=== PATIENT | male | born 1940 | race Native Hawaiian/Other Pacific Islander ===

== ENCOUNTER 2017-05-01 16:24 | Inpatient (IN) | payer MEDICARE ==
[2017-05-01 20:30] VITALS: BMI 27.3
--- NOTE | 2017-05-01 22:29 | CP.PCM.HP ---
History of Present Illness - History of Present Illness History of Present Illness: Cardiothoracic Surgeon: Prince Gupta MD Data Specialist: Dr Rodrigues Chief complaint: Chest Pain s/p CABG The patient was seen and examined in the Acute Rehab Unit HPI: 76 years old male with Transferred from the [facility] here to the [facility] for acute rehab. He has hx of ESRD on HD MWF, DM , CAD s/p Stents; He was admitted to [facility] with Dx of NSTEMI on 04/20/17 and CABG on 04/25/17 at the [facility]. He refers being tired but No chest pains, SOB nor Palpitation. PMH: HTN; DM Insulin requiring: ESRD on HD MWF; CAD with Stent placed 04/07/16 ; A Fib/Flutter/ SSS; CHF; Pulmonary Hypertension PSH: CABG 04/25/17; DDD PPM [place] [id number] SH: No illegal drug use, No Alcohol use; No smoking of cigarettes FH: No family cardiac hx Allergies: ASA and Shell Fish causing rash Medication: Reviewed Present on Admission - Present on Admission Any Indicators Present on Admission: No History of DVT/PE: No History of Uncontrolled Diabetes: Yes Urinary Catheter: No Decubitus Ulcer Present: No Review of Systems - Constitutional Constitutional: absent: Anorexia, Chills, Fever, Headache, Lethargy - EENT Eyes: Requires Corrective Lenses. absent: Diplopia, Floaters, Photophobia Ears: absent: Decreased Hearing, Ear Discharge, Ear Pain, Tinnitus Nose/Mouth/Throat: absent: Epistaxis, Nasal Congestion, Sinus Pain, Sinus Pressure - Cardiovascular Cardiovascular: Chest Pain. absent: Dyspnea, Edema - Respiratory Respiratory: absent: Cough, Dyspnea, Wheezing - Gastrointestinal Gastrointestinal: absent: Abdominal Pain, Constipation, Diarrhea, Nausea, Vomiting - Genitourinary Genitourinary: absent: Dysuria, Flank Pain, Hematuria, Urinary Frequency - Musculoskeletal Musculoskeletal: absent: Arthralgias, Back Pain, Muscle Weakness - Integumentary Integumentary: absent: Pruritus, Rash, Skin Ulcer, Sores, Striae, Swelling - Neurological Neurological: absent: Confusion, Focal Weakness, Loss of Vision, Weakness - Psychiatric Psychiatric: absent: Anxiety, Depression, Panic Attacks - Endocrine Endocrine: absent: Palpitations, Polydipsia, Polyphagia, Polyuria - Hematologic/Lymphatic Hematologic: absent: Easy Bleeding, Easy Bruising Past Patient History - Past Medical History & Family History Past Medical History?: Yes - Past Social History Smoking Status: Never Smoked Chewing Tobacco Use: No Cigar Use: No Alcohol: None Drugs: Denies Home Situation {Lives}: With Family - CARDIAC Hx Cardiac Disorders: Yes Hx Atrial Fibrillation: Yes Hx Hypertension: Yes Hx Pacemaker: Yes - PULMONARY Hx Respiratory Disorders: No - NEUROLOGICAL Hx Neurological Disorder: No - HEENT Hx HEENT Problems: No - RENAL Hx Chronic Kidney Disease: Yes Hx Dialysis: Yes Date of Last Dialysis Treatment: 04/30/17 (MWF) - ENDOCRINE/METABOLIC Hx Diabetes Mellitus Type 1: Yes (??) - HEMATOLOGICAL/ONCOLOGICAL Hx Anemia: Yes - INTEGUMENTARY Hx Dermatological Problems: No - MUSCULOSKELETAL/RHEUMATOLOGICAL Hx Musculoskeletal Disorders: No - SURGICAL HISTORY Hx Surgeries: Yes Hx Cardiac Catheterization: Yes Hx Coronary Artery Bypass Graft: Yes Other/Comment: CABG/PPM - ANESTHESIA Hx Anesthesia: Yes Hx Anesthesia Reactions: No Meds Allergies/Adverse Reactions: Allergies Allergy/AdvReac Type Severity Reaction Status Date / Time aspirin Allergy Intermediate .HIVES Verified 05/01/17 20:29 shellfish derived Allergy Intermediate .HIVES Verified 05/01/17 20:29 Physical Exam - Constitutional Appears: No Acute Distress - Head Exam Head Exam: ATRAUMATIC, NORMAL INSPECTION, NORMOCEPHALIC - Eye Exam Eye Exam: EOMI, Normal appearance Pupil Exam: NORMAL ACCOMODATION, PERRL - ENT Exam ENT Exam: Mucous Membranes Moist, Normal Exam, Normal External Ear Exam - Neck Exam Neck exam: Positive for: Full Rom, Normal Inspection. Negative for: Lymphadenopathy, Tenderness - Respiratory Exam Additional comments: Mild rales at both bases; no wheezes nor rhonchi Chest wall with post surgical fran with the wound clean and dry with no sign of inflammation. - Cardiovascular Exam Additional comments: S1 S2 regular with intermittent irregularity; No S3 S4 - GI/Abdominal Exam GI & Abdominal Exam: Mass, Normal Bowel Sounds, Soft. absent: Organomegaly - Rectal Exam Rectal Exam: Deferred - Extremities Exam Extremities exam: Positive for: full ROM, normal inspection. Negative for: calf tenderness - Back Exam Back exam: NORMAL INSPECTION. absent: CVA tenderness (L), CVA tenderness (R) - Neurological Exam Neurological exam: Alert, CN II-XII Intact, Oriented x3, Reflexes Normal - Psychiatric Exam Psychiatric exam: Normal Affect, Normal Mood - Skin Skin Exam: Dry, Intact, Warm Additional comments: Hyperpigmentation at anterior region of both legs distal 1/3, non tender Results - Labs Labs: Hb 10.9 Ht 33.7 BUN 50 Creatinine 77 Assessment & Plan - Assessment and Plan (Free Text) Assessment: #.NSTEMI s/p CABG #. ESRD s/p HD MWF #. Anemia of chronic Kidney disease #. DM insulin requiring #. A Fib/ A flutter/ SSS Plan: 76 years old male with Transferred from the [facility] here to the [facility] for acute rehab. He has hx of ESRD on HD MWF, DM, CAD s/ p Stents; He was admitted to [facility] with Dx of NSTEMI on 04/20/17 and CABG on 04/25 at the [facility]. He refers being tired but No chest pains, SOB nor Palpitation. #.NSTEMI s/p CABG - Consult Dr Lagos cardiothoracic Surgery - Cardiac Rehab - Consult Dr Claudio Phyiatrist - lipitor - Plavix - Metoprolol #. ESRD s/p HD MWF - Consult Dr Rodrigues nephrology #. Anemia of chronic Kidney disease - Epogen at dialysis - Follow Hb #. DM insulin requiring - Consult Dr Deluca endocrinology - Levemir - Aspart sliding scale - HbA1c #. A Fib/ A flutter/ SSS rate controlled - Not to restart Therapeytic Anticoagulant as yet as per Cardio thoracic Surgery - Follow Vital signs #. Stress Ulcer prophylaxis with Pantoprazole #. DVT prophylaxis with Heparin SQ #. Code Status Full - Date & Time Date: 05/01/17 Time: 22:29
[2017-05-01] MEDS: Insulin Detemir 100 Units/ml Inj SC SCH (23:09)
[2017-05-02 06:08] LABS: BASO % 0.5 % (0.0-2.0); EOS # 0.2 K/uL (0.0-0.7); EOS % 2.7 % (0.0-4.0); HEMOGLOBIN 10.9 g/dL (12.0-18.0); LYMPH # 1.1 K/uL (1.0-4.3); LYMPH % 13.4 % (20.0-40.0); MEAN CELL VOLUME 94.9 fl (80.0-94.0); MEAN CORPUSCULAR HEMOGLOBIN 31.1 pg (27.0-31.0); MEAN CORPUSCULAR HGB CONC 32.8 g/dL (33.0-37.0); MEAN PLATELET VOLUME 8.6 fl (7.2-11.7); MONO % 12.4 % (0.0-10.0); NEUT # 5.8 K/uL (1.8-7.0); NRBC % 0.7 % (0.0-0.0); RBC 3.52 Mil/uL (4.40-5.90); RED CELL DISTRIBUTION WIDTH 17.6 % (11.5-14.5); WHITE BLOOD COUNT 8.1 K/uL (4.8-10.8)
--- NOTE | 2017-05-02 06:42 | CP.PCM.CON ---
History of Present Illness - History of Present Illness History of Present Illness: CT surgery consult note for Dr. Peter Bush, PGY-1 76M w/PMH sig for CABG on 04/25/17 consulted for follow up s/p CABG. Pt reports no problems, denies chest pain, SOB, dizziness, N & V, F & C. Currently in hospital for rehab post op. Pt without any other complaints at this time. PMH: ESRD on HD (MWF), CAD s/p stents, DM, NSTEMI, afib, aflutter, CHF, pulmonary HTN PSH: CABG 04/25/17, Pacemaker (04/07/16) All: ASA, Shellfish (rash) SH: Denies ETOH, tobacco, or illicit drug use Review of Systems - Review of Systems All systems: reviewed and no additional remarkable complaints except - Constitutional Constitutional: absent: Chills, Fever - EENT Eyes: absent: Change in Vision Ears: absent: Dizziness - Cardiovascular Cardiovascular: absent: Chest Pain, Leg Edema, Lightheadedness, Palpitations - Respiratory Respiratory: absent: Pain with Coughing - Gastrointestinal Gastrointestinal: absent: Abdominal Pain, Nausea, Vomiting - Musculoskeletal Musculoskeletal: absent: Muscle Weakness - Neurological Neurological: absent: Dizziness Past Patient History - Past Medical History & Family History Past Medical History?: Yes - Past Social History Smoking Status: Never Smoked Chewing Tobacco Use: No Cigar Use: No Alcohol: None Drugs: Denies Home Situation {Lives}: With Family - CARDIAC Hx Cardiac Disorders: Yes Hx Atrial Fibrillation: Yes Hx Hypertension: Yes Hx Pacemaker: Yes - PULMONARY Hx Respiratory Disorders: No - NEUROLOGICAL Hx Neurological Disorder: No - HEENT Hx HEENT Problems: No - RENAL Hx Chronic Kidney Disease: Yes Hx Dialysis: Yes Date of Last Dialysis Treatment: 04/30/17 (MWF) - ENDOCRINE/METABOLIC Hx Diabetes Mellitus Type 1: Yes (??) - HEMATOLOGICAL/ONCOLOGICAL Hx Anemia: Yes - INTEGUMENTARY Hx Dermatological Problems: No - MUSCULOSKELETAL/RHEUMATOLOGICAL Hx Musculoskeletal Disorders: No - PSYCHIATRIC Hx Substance Use: No - SURGICAL HISTORY Hx Surgeries: Yes Hx Cardiac Catheterization: Yes Hx Coronary Artery Bypass Graft: Yes Other/Comment: CABG/PPM - ANESTHESIA Hx Anesthesia: Yes Hx Anesthesia Reactions: No Meds Allergies/Adverse Reactions: Allergies Allergy/AdvReac Type Severity Reaction Status Date / Time aspirin Allergy Intermediate .HIVES Verified 12/14/17 20:29 shellfish derived Allergy Intermediate .HIVES Verified 05/01/17 20:29 - Medications Medications: Current Medications Amlodipine Besylate (Norvasc) 10 mg PO DAILY [facility] Atorvastatin Calcium (Lipitor) 40 mg PO DAILY [facility] Calcium Acetate (Phoslo) 667 mg PO BID [facility] Clopidogrel Bisulfate (Plavix) 75 mg PO DAILY [facility] Docusate Sodium (Colace Liquid) 100 mg PO BID [facility] Epoetin Prasanth (Procrit) 10,000 unit IV MWF [facility] Heparin Sodium (Porcine) (Heparin) 5,000 units SC Q8H [facility] PRN Reason: Protocol Last Admin: 05/02/17 06:25 Dose: 5,000 units Insulin Detemir (Levemir) 20 units SC Q12 [facility] Last Admin: 05/01/17 23:09 Dose: 20 units Insulin Human Lispro (Humalog) 0 units SC ACHS [facility] PRN Reason: Protocol Metoprolol Tartrate (Lopressor) 25 mg PO Q12H [facility] Last Admin: 05/01/17 22:45 Dose: Not Given Multivitamins/Minerals (Therapeutic-M Tab) 1 tab PO DAILY [facility] Pantoprazole Sodium (Protonix Ec Tab) 40 mg PO DAILY [facility] Physical Exam - Constitutional Appears: Non-toxic, No Acute Distress - Head Exam Head Exam: ATRAUMATIC, NORMAL INSPECTION, NORMOCEPHALIC - Eye Exam Eye Exam: EOMI, Normal appearance - ENT Exam ENT Exam: Mucous Membranes Moist, Normal Exam - Neck Exam Neck exam: Positive for: Full Rom - Respiratory Exam Respiratory Exam: Clear to Auscultation Bilateral, NORMAL BREATHING PATTERN. absent: Accessory Muscle Use, Chest Wall Tenderness, Decreased Breath Sounds, Rales, Rhonchi, Wheezes, Respiratory Distress, Stridor - Cardiovascular Exam Cardiovascular Exam: REGULAR RHYTHM, +S1, +S2 Additional comments: Chest wall with midline incision with fran in place, 3 small incision sites in upper abdomen well healed - GI/Abdominal Exam GI & Abdominal Exam: Normal Bowel Sounds, Soft. absent: Diminished Bowel Sounds , Distended, Firm, Guarding, Rigid, Tenderness - Extremities Exam Extremities exam: Positive for: normal inspection. Negative for: pedal edema - Neurological Exam Neurological exam: Alert, CN II-XII Intact, Oriented x3 - Psychiatric Exam Psychiatric exam: Normal Affect, Normal Mood - Skin Skin Exam: Dry, Intact, Normal Color, Warm Results - Vital Signs Recent Vital Signs: Last Vital Signs Temp 97 F L 05/01/17 20:30 Pulse 75 05/01/17 22:45 Resp 20 05/01/17 22:30 BP 109/56 L 05/01/17 22:45 Pulse Ox 97 05/01/17 22:30 - Labs Result Diagrams: 05/02/17 05:29 05/02/17 05:29 Labs: Laboratory Results - last 24 hr 05/01/17 05/02/17 05/02/17 21:36 05:29 06:05 WBC 8.1 RBC 3.52 L Hgb 10.9 L Hct 33.4 L MCV 94.9 H MCH 31.1 H MCHC 32.8 L RDW 17.6 H Plt Count 176 MPV 8.6 Neut % (Auto) 71.0 Lymph % (Auto) 13.4 L Navarro % (Auto) 12.4 H Eos % (Auto) 2.7 Baso % (Auto) 0.5 Neut # 5.8 Lymph # 1.1 Navarro # 1.0 H Eos # 0.2 Baso # 0.0 POC Glucose (mg/dL) 283 H 192 H Assessment & Plan - Assessment and Plan (Free Text) Assessment: 76M w/PMH sig for CAD, NSTEMI s/p CABG (04/25/17) consulted for post op evaluation, stable in rehab unit Plan: Ambulate PT/OT If pt has cardiac symptoms, please return to [facility] Will sign off Please re-consult as needed KAREL attending Rachelle, PGY-1 - Date & Time Date: 05/02/17 Time: 08:36
[2017-05-02 06:45] LABS: ALB/GLOB RATIO 1.1 (1.0-2.1); ALBUMIN 3.9 g/dL (3.5-5.0); CALCIUM 9.4 mg/dL (8.4-10.2)
[2017-05-02] MEDS: Insulin Lispro (humaLOG) 100 Units/ml Inj SC SCH ×4 (06:59→22:03)
[2017-05-02] MEDS ORDERED: Calcium Acetate 667 MG Capsule PO SCH (09:00)
[2017-05-02] MEDS ORDERED: Pantoprazole 40 mg EC Tab PO SCH (09:00)
[2017-05-02] MEDS: Multivitamin With Minerals Tab PO SCH (09:19)
[2017-05-02] MEDS: Insulin Detemir 100 Units/ml Inj SC SCH ×2 (09:20→22:02)
--- NOTE | 2017-05-02 11:24 | CP.PCM.CON ---
History of Present Illness - History of Present Illness History of Present Illness: Pt is a 76 year old male admitted into the rehab unit following heart surgery at [facility]. Med history positive for DM, dialysis, HTN,, past pacemaker. See medical record for complete medical history and medications. Social History: pt lives with his of 50+ years, child and grandchild. He has three children all in [place]. Pt reported very positive family relationships. diagnosed with Dementia (info provided by daughter). Pt spoke of independence prior to admission though family reported homemakers in the home with family assistance. Psych history denied, pt denied a history of alc/sub abuse. 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 Pt spoke of current depression, refusing medication evaluation. Pt disc increased depression with his heart surgery and current status. MSE: Pt alert, oriented x3, relevant/coherent, no psychosis affect constricted, mood depressed, no si no hi ideation. Dx: Depression Adjustment dx with depression plan: continued supportive therapy Past Patient History - Past Medical History & Family History Past Medical History?: Yes - Past Social History Smoking Status: Never Smoked Chewing Tobacco Use: No Cigar Use: No Alcohol: None Drugs: Denies Home Situation {Lives}: With Family - CARDIAC Hx Cardiac Disorders: Yes Hx Atrial Fibrillation: Yes Hx Hypertension: Yes Hx Pacemaker: Yes - PULMONARY Hx Respiratory Disorders: No - NEUROLOGICAL Hx Neurological Disorder: No - HEENT Hx HEENT Problems: No - RENAL Hx Chronic Kidney Disease: Yes Hx Dialysis: Yes Date of Last Dialysis Treatment: 04/30/17 (MWF) - ENDOCRINE/METABOLIC Hx Diabetes Mellitus Type 1: Yes (??) - HEMATOLOGICAL/ONCOLOGICAL Hx Anemia: Yes - INTEGUMENTARY Hx Dermatological Problems: No - MUSCULOSKELETAL/RHEUMATOLOGICAL Hx Musculoskeletal Disorders: No - PSYCHIATRIC Hx Substance Use: No - SURGICAL HISTORY Hx Surgeries: Yes Hx Cardiac Catheterization: Yes Hx Coronary Artery Bypass Graft: Yes Other/Comment: CABG/PPM - ANESTHESIA Hx Anesthesia: Yes Hx Anesthesia Reactions: No Meds Allergies/Adverse Reactions: Allergies Allergy/AdvReac Type Severity Reaction Status Date / Time aspirin Allergy Intermediate .HIVES Verified 05/01/17 20:29 shellfish derived Allergy Intermediate .HIVES Verified 05/01/17 20:29 - Medications Medications: Current Medications Amlodipine Besylate (Norvasc) 10 mg PO DAILY [facility] Last Admin: 12/15/17 09:19 Dose: 10 mg Atorvastatin Calcium (Lipitor) 40 mg PO DAILY [facility] Last Admin: 05/02/17 09:20 Dose: 40 mg Calcium Acetate (Phoslo) 667 mg PO BID [facility] Last Admin: 05/02/17 09:25 Dose: 667 mg Clopidogrel Bisulfate (Plavix) 75 mg PO DAILY [facility] Last Admin: 05/02/17 09:19 Dose: 75 mg Docusate Sodium (Colace Liquid) 100 mg PO BID [facility] Last Admin: 05/02/17 09:21 Dose: 100 mg Epoetin Prasanth (Procrit) 10,000 unit IV MWF [facility] Heparin Sodium (Porcine) (Heparin) 5,000 units SC Q8H [facility] PRN Reason: Protocol Last Admin: 05/02/17 06:25 Dose: 5,000 units Insulin Detemir (Levemir) 20 units SC Q12 [facility] Last Admin: 05/02/17 09:20 Dose: 20 units Insulin Human Lispro (Humalog) 0 units SC ACHS [facility] PRN Reason: Protocol Last Admin: 05/02/17 06:59 Dose: 1 unit Metoprolol Tartrate (Lopressor) 25 mg PO Q12H [facility] Last Admin: 05/01/17 22:45 Dose: Not Given Multivitamins/Minerals (Therapeutic-M Tab) 1 tab PO DAILY [facility] Last Admin: 05/02/17 09:19 Dose: 1 tab Pantoprazole Sodium (Protonix Ec Tab) 40 mg PO DAILY [facility] Last Admin: 05/02/17 09:18 Dose: 40 mg Results - Vital Signs Recent Vital Signs: Last Vital Signs Temp 96.6 F L 05/02/17 08:20 Pulse 70 05/02/17 09:19 Resp 18 05/02/17 08:20 BP 139/58 L 05/02/17 09:19 Pulse Ox 97 05/02/17 08:20 - Labs Result Diagrams: 05/02/17 05:29 05/02/17 05:29 Labs: Laboratory Results - last 24 hr 05/01/17 05/02/17 05/02/17 21:36 05:29 05:29 WBC 8.1 RBC 3.52 L Hgb 10.9 L Hct 33.4 L MCV 94.9 H MCH 31.1 H MCHC 32.8 L RDW 17.6 H Plt Count 176 MPV 8.6 Neut % (Auto) 71.0 Lymph % (Auto) 13.4 L Scott % (Auto) 12.4 H Eos % (Auto) 2.7 Baso % (Auto) 0.5 Neut # 5.8 Lymph # 1.1 Scott # 1.0 H Eos # 0.2 Baso # 0.0 Sodium 139 Potassium 4.1 Chloride 91 L Carbon Dioxide 31 H Anion Gap 21 H BUN 70 H Creatinine 9.5 H* Est GFR ( Amer) 7 Est GFR (Non-Af Amer) 5 POC Glucose (mg/dL) 283 H Random Glucose 153 H Calcium 9.4 Total Bilirubin 0.8 AST 57 ALT 29 Alkaline Phosphatase 94 Total Protein 7.4 Albumin 3.9 Globulin 3.5 Albumin/Globulin Ratio 1.1 05/02/17 06:05 WBC RBC Hgb Hct MCV MCH MCHC RDW Plt Count MPV Neut % (Auto) Lymph % (Auto) Scott % (Auto) Eos % (Auto) Baso % (Auto) Neut # Lymph # Scott # Eos # Baso # Sodium Potassium Chloride Carbon Dioxide Anion Gap BUN Creatinine Est GFR ( Amer) Est GFR (Non-Af Amer) POC Glucose (mg/dL) 192 H Random Glucose Calcium Total Bilirubin AST ALT Alkaline Phosphatase Total Protein Albumin Globulin Albumin/Globulin Ratio
--- NOTE | 2017-05-02 13:14 | PCM.OPOC ---
Physiatry Overall Plan of Care - Overall Plan of Care Estimated Length of Stay in Weeks: 3 Rehab Impairment: Mobility, Gait, Cognition, Balance, Coordination Etiologic Diagnosis: Other - Anticipated Interventions Physical Therapy:: Yes Occupational Therapy:: Yes Recreational Therapy:: Yes - Therapy Goals Bed Mobility: Independent Ambulation: Independent Functional Positional Changes:: Independent - Functional Outcomes Functional Outcomes: fair cardiac precautuions - Discharge Plan Identification of Barriers to Discharge: Home Situation Discharge Destination: Home
--- NOTE | 2017-05-02 13:20 | CP.PCM.PN ---
Subjective - Date & Time of Evaluation Date of Evaluation: 05/02/17 Time of Evaluation: 12:00 - Subjective Subjective: Patient with no c/c today. States pain is well controlled. States he is doing PT as tolerated. Per nursing, noted to often be tired and less interested in PT. Objective - Vital Signs/Intake and Output Vital Signs (last 24 hours): Temp Pulse Resp BP Pulse Ox 96.6 F L 71 18 124/61 97 05/02/17 08:20 05/02/17 11:58 05/02/17 08:20 05/02/17 11:58 05/02/17 08:20 - Medications Medications: Current Medications Amlodipine Besylate (Norvasc) 10 mg PO DAILY [facility] Last Admin: 05/02/17 09:19 Dose: 10 mg Atorvastatin Calcium (Lipitor) 40 mg PO DAILY [facility] Last Admin: 05/02/17 09:20 Dose: 40 mg Calcium Acetate (Phoslo) 667 mg PO BID [facility] Last Admin: 05/02/17 09:25 Dose: 667 mg Clopidogrel Bisulfate (Plavix) 75 mg PO DAILY [facility] Last Admin: 05/02/17 09:19 Dose: 75 mg Docusate Sodium (Colace Liquid) 100 mg PO BID [facility] Last Admin: 05/02/17 09:21 Dose: 100 mg Epoetin Prasanth (Procrit) 10,000 unit IV F [facility] Heparin Sodium (Porcine) (Heparin) 5,000 units SC Q8H [facility] PRN Reason: Protocol Last Admin: 05/02/17 06:25 Dose: 5,000 units Insulin Detemir (Levemir) 20 units SC Q12 [facility] Last Admin: 05/02/17 09:20 Dose: 20 units Insulin Human Lispro (Humalog) 0 units SC ACHS [facility] PRN Reason: Protocol Last Admin: 05/02/17 11:59 Dose: 2 unit Metoprolol Tartrate (Lopressor) 25 mg PO Q12H [facility] Last Admin: 05/02/17 11:58 Dose: 25 mg Multivitamins/Minerals (Therapeutic-M Tab) 1 tab PO DAILY [facility] Last Admin: 05/02/17 09:19 Dose: 1 tab Pantoprazole Sodium (Protonix Ec Tab) 40 mg PO DAILY [facility] Last Admin: 05/02/17 09:18 Dose: 40 mg - Labs Labs: 05/02/17 05:29 05/02/17 05:29 - Constitutional Appears: No Acute Distress - Head Exam Head Exam: ATRAUMATIC, NORMOCEPHALIC - Eye Exam Eye Exam: EOMI, PERRL - ENT Exam ENT Exam: Mucous Membranes Moist - Neck Exam Neck Exam: Full ROM - Respiratory Exam Respiratory Exam: Clear to Ausculation Bilateral, NORMAL BREATHING PATTERN Additional comments: Chest incision c/d/i - Cardiovascular Exam Cardiovascular Exam: REGULAR RHYTHM, +S1, +S2 - GI/Abdominal Exam GI & Abdominal Exam: Soft, Normal Bowel Sounds - Extremities Exam Extremities Exam: Full ROM, Normal Inspection Additional comments: Leg incision for vein harvest C/D/I - Neurological Exam Neurological Exam: Awake, CN II-XII Intact, Oriented x3 - Psychiatric Exam Psychiatric exam: Normal Affect, Normal Mood - Skin Skin Exam: Dry, Warm Assessment and Plan (1) S/P CABG (coronary artery bypass graft) Assessment & Plan: A/P: This is a 76 years old male who is here after NSTEMI and CABG at [facility]. Transferred here for acute rehab. MHx is significant for ESRD on HD MWF, DM2, CAD s/p stents in the past. Patient is stable, without c/c today. 1) NSTEMI s/p CABG - Cardiac Rehab - Consult Dr Claudio Phyiatrist - Cont Lipitor - Cont Plavix - Cont Metoprolol - Notified that Dr. Peters, the surgeon, does not have privileges here in hospital; patient has an appointment on 05/[address] Peters in office, so will cancel consult 2) ESRD on HD MWF - Consult Dr Rodrigues nephrology 3) Anemia of chronic Kidney disease - Epogen at dialysis - Follow H/H on CBC, will order a repeat 4) DM insulin requiring - Dr Jacobs endocrinology on consult - Levemir - Aspart sliding scale 5) A Fib/ A flutter/ SSS rate controlled - Not to restart Therapeytic Anticoagulant as yet as per Cardio thoracic Surgery 6) GI PPx with Pantoprazole 7) DVT PPx with SQH 8) Code Status Full Status: Acute
--- NOTE | 2017-05-02 14:32 | CP.PCM.CON ---
History of Present Illness - History of Present Illness History of Present Illness: 76 y/o male with PMHx of HTN, DM Insulin requiring: ESRD on HD MWF; CAD with Stent placed 04/07/16; A Fib/Flutter/ SSS; CHF; Pulmonary Hypertension seen and evaluated at bedside for elongated nails. Patient appears to be resting and is not responding to questions asked properly. Patient denies of any other pedal complains at this time. PMHx: HTN, DM Insulin requiring: ESRD on HD MWF; CAD with Stent placed 04/07/16 ; A Fib/Flutter/ SSS; CHF; Pulmonary Hypertension PSHx: CABG 04/25/17; DDD PPM [place] [id number] Allergies: ASA and Shell Fish causing rash SHx: No illegal drug use, No Alcohol use; No smoking of cigarettes Review of Systems - Constitutional Constitutional: As Per HPI Past Patient History - Past Medical History & Family History Past Medical History?: Yes - Past Social History Smoking Status: Never Smoked Chewing Tobacco Use: No Cigar Use: No Alcohol: None Drugs: Denies Home Situation {Lives}: With Family - CARDIAC Hx Cardiac Disorders: Yes Hx Atrial Fibrillation: Yes Hx Hypertension: Yes Hx Pacemaker: Yes - PULMONARY Hx Respiratory Disorders: No - NEUROLOGICAL Hx Neurological Disorder: No - HEENT Hx HEENT Problems: No - RENAL Hx Chronic Kidney Disease: Yes Hx Dialysis: Yes Date of Last Dialysis Treatment: 04/30/17 ([facility]) - ENDOCRINE/METABOLIC Hx Diabetes Mellitus Type 1: Yes (??) - HEMATOLOGICAL/ONCOLOGICAL Hx Anemia: Yes - INTEGUMENTARY Hx Dermatological Problems: No - MUSCULOSKELETAL/RHEUMATOLOGICAL Hx Musculoskeletal Disorders: No - PSYCHIATRIC Hx Substance Use: No - SURGICAL HISTORY Hx Surgeries: Yes Hx Cardiac Catheterization: Yes Hx Coronary Artery Bypass Graft: Yes Other/Comment: CABG/PPM - ANESTHESIA Hx Anesthesia: Yes Hx Anesthesia Reactions: No Meds Allergies/Adverse Reactions: Allergies Allergy/AdvReac Type Severity Reaction Status Date / Time aspirin Allergy Intermediate .HIVES Verified 05/01/17 20:29 shellfish derived Allergy Intermediate .HIVES Verified 05/01/17 20:29 - Medications Medications: Current Medications Amlodipine Besylate (Norvasc) 10 mg PO DAILY [facility] Last Admin: 05/02/17 09:19 Dose: 10 mg Atorvastatin Calcium (Lipitor) 40 mg PO DAILY [facility] Last Admin: 05/02/17 09:20 Dose: 40 mg Calcium Acetate (Phoslo) 667 mg PO BID [facility] Last Admin: 05/02/17 09:25 Dose: 667 mg Clopidogrel Bisulfate (Plavix) 75 mg PO DAILY [facility] Last Admin: 05/02/17 09:19 Dose: 75 mg Docusate Sodium (Colace Liquid) 100 mg PO BID [facility] Last Admin: 05/02/17 09:21 Dose: 100 mg Epoetin Prasanth (Procrit) 10,000 unit IV F [facility] Heparin Sodium (Porcine) (Heparin) 5,000 units SC Q8H [facility] PRN Reason: Protocol Last Admin: 05/02/17 13:58 Dose: 5,000 units Insulin Detemir (Levemir) 20 units SC Q12 [facility] Last Admin: 05/02/17 09:20 Dose: 20 units Insulin Human Lispro (Humalog) 0 units SC ACHS [facility] PRN Reason: Protocol Last Admin: 05/02/17 11:59 Dose: 2 unit Metoprolol Tartrate (Lopressor) 25 mg PO Q12H [facility] Last Admin: 05/02/17 11:58 Dose: 25 mg Multivitamins/Minerals (Therapeutic-M Tab) 1 tab PO DAILY [facility] Last Admin: 05/02/17 09:19 Dose: 1 tab Pantoprazole Sodium (Protonix Susp) 40 mg PO DAILY [facility] Physical Exam - Constitutional Appears: Well, Non-toxic, No Acute Distress - Extremities Exam Extremities exam: Negative for: calf tenderness Additional comments: Bilateral LE exam: VASC: DP/PT pulses are palpable 2/4, Cap refill time: < 3 sec to all digits, Temp gradient: warm to cool from proximal to distal, no pitting or non-pitting edema noted DERM: nails are elongated, slightly dystrophic x 10, no open lesions, no interdigital maceration, no clinical suspicion of active infection NEURO: Protective sensation grossly intact ORTHO: mild pain on palpation of the hallucal nail on the left, normal ROM at the ankle joint during AROM and PROM, MMT: 5/5 in all 4 compartments - Neurological Exam Neurological exam: Alert, Oriented x3 - Psychiatric Exam Psychiatric exam: Normal Affect, Normal Mood Results - Vital Signs Recent Vital Signs: Last Vital Signs Temp 96.6 F L 05/02/17 08:20 Pulse 71 05/02/17 11:58 Resp 18 05/02/17 08:20 BP 124/61 05/02/17 11:58 Pulse Ox 97 05/02/17 08:20 - Labs Result Diagrams: 05/02/17 05:29 05/02/17 05:29 Labs: Laboratory Results - last 24 hr 05/01/17 05/02/17 05/02/17 21:36 05:29 05:29 WBC 8.1 RBC 3.52 L Hgb 10.9 L Hct 33.4 L MCV 94.9 H MCH 31.1 H MCHC 32.8 L RDW 17.6 H Plt Count 176 MPV 8.6 Neut % (Auto) 71.0 Lymph % (Auto) 13.4 L Long % (Auto) 12.4 H Eos % (Auto) 2.7 Baso % (Auto) 0.5 Neut # 5.8 Lymph # 1.1 Long # 1.0 H Eos # 0.2 Baso # 0.0 Sodium 139 Potassium 4.1 Chloride 91 L Carbon Dioxide 31 H Anion Gap 21 H BUN 70 H Creatinine 9.5 H* Est GFR ( Amer) 7 Est GFR (Non-Af Amer) 5 POC Glucose (mg/dL) 283 H Random Glucose 153 H Calcium 9.4 Total Bilirubin 0.8 AST 57 ALT 29 Alkaline Phosphatase 94 Total Protein 7.4 Albumin 3.9 Globulin 3.5 Albumin/Globulin Ratio 1.1 05/02/17 06:05 WBC RBC Hgb Hct MCV MCH MCHC RDW Plt Count MPV Neut % (Auto) Lymph % (Auto) Long % (Auto) Eos % (Auto) Baso % (Auto) Neut # Lymph # Long # Eos # Baso # Sodium Potassium Chloride Carbon Dioxide Anion Gap BUN Creatinine Est GFR ( Amer) Est GFR (Non-Af Amer) POC Glucose (mg/dL) 192 H Random Glucose Calcium Total Bilirubin AST ALT Alkaline Phosphatase Total Protein Albumin Globulin Albumin/Globulin Ratio Assessment & Plan - Assessment and Plan (Free Text) Assessment: 76 y/o male seen and evaluated at bedside for elongated nails Plan: Patient seen and evaluated at bedside Charts, vitals reviewed - afebrile Aseptic debridement of nails using sterile nippers Tolerated the procedure well Thank you for the podiatry consult - re-consult if needed - Date & Time Date: 05/02/17 Time: 14:37
[2017-05-02] MEDS: EPOETIN ALFA 10,000 UNIT/ML ML IV SCH (16:36)
--- NOTE | 2017-05-02 18:20 | CARD ---
APPROVED REPORT EKG Measurement Heart [id number] <Conclusion> Ventricular-paced rhythm Underlying rhythm is Atrial flutter Abnormal ECG
--- NOTE | 2017-05-02 19:08 | PN ---
PHYSIATRY CONSULTATION HISTORY OF PRESENT ILLNESS: The patient is a 76-year-old male admitted to acute inpatient rehab program. The patient with NSTEMI status post CABG, also past history of hypertension, coronary artery disease status post stenting, sick sinus syndrome, CHF, diabetes, end-stage renal disease. SOCIAL HISTORY: No history of drinking. No history of smoking. FAMILY HISTORY: Noncontributory. ALLERGIES: TO ASPIRIN AND SHELLFISH. FUNCTIONAL STATUS: The patient was living at home with , with daughter, primary md do resident urgent care for the . Used to be independent before. MEDICATIONS: As per medical physician. The patient apparently was brought to the emergency because of chest tightness, sudden onset, with associated shortness of breath, status post CABG x2 on 04/25/2017, date of onset was 04/20/2017. Other history, as previously stated, of hypertension, coronary artery disease status post stent March 2016, also on dialysis 3 times a day. REVIEW OF SYSTEMS: The patient with generalized weakness, no other acute complaints at present. PHYSICAL EXAMINATION: VITAL SIGNS: Stable. NECK: Supple. CHEST: Symmetrical. HEART: Sounds S1 and S2. ABDOMEN: Abdominal area is benign. EXTREMITIES: No clubbing, cyanosis or edema. NEUROLOGIC: Problems with [id number], [id number]. Both upper, both lower extremities, muscle strength is 3/5. Deep tendon reflexes 2+ bilaterally. Other systems are negative. IMPRESSION: For the patient, non-ST elevation myocardial infarction status post coronary artery bypass graft 09, ICD code with history of hypertension, coronary artery disease status post stenting, sick sinus syndrome, congestive heart failure, diabetes, end-stage renal disease, atrial fibrillation, chronic obstructive pulmonary disease precautions, cardiac precautions. Estimated length of stay for this patient is 2 to 3 weeks. Anticipated discharge plan is to go back to live at home with supportive services. Treatment goals for the patient to be independent bed mobility, independent to supervision functional positional changes, independent to supervision for simple transfers, supervision and contact guard to complex transfers, independent to supervision for ambulation with assistive devices, supervision to contact guard for elevations. The patient is admitted to [facility], room 623, bed 1. Kwasi Novoa MD [facility] # [id number]
[2017-05-02 21:53] LABS: HEPATITIS B SURFACE AG NEGATIVE (NEGATIVE)
[2017-05-02 22:11] LABS: HEPATITIS C ANTIBODY Negative (NEGATIVE)
--- NOTE | 2017-05-03 00:41 | CON ---
ENDOCRINOLOGY CONSULTATION LOCATION: Room 623, acute rehab unit. HISTORY OF PRESENT ILLNESS: This is a 76-year-old male with known history of type 2 insulin-requiring diabetes, presenting here following a transfer from the [facility] after undergoing coronary artery bypass graft surgery as noted. PAST MEDICAL HISTORY: As mentioned above. History of type 2 insulin-requiring diabetes, currently on Levemir given as 20 units every 12 hours as noted; history of hypertensive cardiovascular disease and dyslipidemia; history of diabetic retinopathy, polyneuropathy and nephropathy with end-stage renal disease and dialysis dependence; history of coronary artery disease with a previous coronary stent placement in March of 2016 and subsequent coronary artery bypass graft surgery done in 04/2017; also had a pacemaker insertion undertaken in 03/2016. He also has chronic atrial fibrillation and flutter with previous episodes for congestive heart failure and pulmonary hypertension. FAMILY HISTORY: Positive for hypertension and diabetes. SOCIAL HISTORY: The patient has supportive family. No known substance use. REVIEW OF SYSTEMS: As mentioned above. Admits to generalized body weakness with easy fatigability and tiredness and suboptimal energy level. Also admits to episodic bouts of dizziness and lightheadedness as noted. No recent chest pains, but admits to exertional dyspnea with occasional dyspnea at rest. No recent paroxysmal nocturnal dyspnea. His oral intake is also quite variable and suboptimal with very small meal portions as per the nursing staff. Admits to occasional nausea and dyspepsia with habitual constipation. PHYSICAL EXAMINATION: GENERAL: This is an average-built male, in no apparent distress. VITAL SIGNS: Blood pressure of 140/90; pulse of 70 beats per minute, regular; temperature 98; respirations 20. Height is 5 feet 6 inches, weight is 172 pounds. HEENT: Head normocephalic. Eyes anicteric with pink conjunctivae. Funduscopy not possible at this time. Ears, nose and throat otherwise normal. NECK: Supple. Thyroid gland is normal in size. No carotid bruits or any cervical adenopathy. CARDIOPULMONARY: Some adynamic precordium. S1, S2 are rapid and regular. LUNGS: Clear to auscultation. ABDOMEN: Flat, soft with positive bowel sounds. EXTREMITIES: No peripheral edema. Pulses are +2 bilaterally. LABORATORY DATA: Chemistry showed a BUN of 70, sodium 139, potassium 4.1, chloride 91, CO2 of 31, glucose 153 and creatinine 9.5. ASSESSMENT: This is a 76-year-old male with uncontrolled and decompensated type 2 insulin-requiring diabetes, presenting here for acute rehabilitation therapy following a recent coronary artery bypass graft surgery at the [facility]. He also has diabetic microvascular complications of retinopathy, polyneuropathy and nephropathy with end-stage renal disease and dialysis dependence. Moreover, he also has significant macrovascular complications of coronary artery disease with a prior coronary artery bypass graft surgery and coronary stent placements with peripheral vascular disease and vasculopathy as noted. PLAN OF MANAGEMENT: As discussed with the patient and staff. We will continue the basal insulin for now given as Levemir at 20 units every 12 hours as ordered. As his oral intake improves, then we will start him also on a very low dose of prandial insulin given as Humalog as 4 units subcu t.i.d. before meals as ordered. We will modify the coverage scale to obviate hypoglycemia and detailed orders have been given. We will obtain a hemoglobin A1c and serial chemistries and supplement accordingly as needed. Baseline thyroid studies and lipid panel will also be ordered. We will follow and advise accordingly. Cindy Jacobs MD
[2017-05-03] MEDS: Insulin Lispro (humaLOG) 100 Units/ml Inj SC SCH ×7 (06:45→22:38)
[2017-05-03 07:22] LABS: ALB/GLOB RATIO 1.1 (1.0-2.1); ALBUMIN 3.9 g/dL (3.5-5.0); ALT/SGPT 32 U/L (21-72); AST/SGOT 52 U/L (17-59); BLOOD UREA NITROGEN 36 mg/dl (9-20); CALCIUM 9.2 mg/dL (8.4-10.2); GFR AFRICAN-AMERICAN 10; GFR NON-AFRICAN AMERICAN 8; HDL CHOLESTEROL 32 MG/DL (30-70); LDL CHOLESTEROL < 30 mg/dL (0-129)
[2017-05-03] MEDS: Multivitamin With Minerals Tab PO SCH (08:34)
[2017-05-03] MEDS: Pantoprazole 40 mg Susp UD PO SCH (08:34)
--- NOTE | 2017-05-03 14:58 | CP.PCM.CON ---
History of Present Illness - History of Present Illness History of Present Illness: pt is seen and examined, full consult is dictated #[id number] s/p hd last night, no complications Past Patient History - Past Medical History & Family History Past Medical History?: Yes - Past Social History Smoking Status: Never Smoked Chewing Tobacco Use: No Cigar Use: No Alcohol: None Drugs: Denies Home Situation {Lives}: With Family - CARDIAC Hx Cardiac Disorders: Yes Hx Atrial Fibrillation: Yes Hx Hypertension: Yes Hx Pacemaker: Yes - PULMONARY Hx Respiratory Disorders: No - NEUROLOGICAL Hx Neurological Disorder: No - HEENT Hx HEENT Problems: No - RENAL Hx Chronic Kidney Disease: Yes Hx Dialysis: Yes Date of Last Dialysis Treatment: 04/30/[address]) - ENDOCRINE/METABOLIC Hx Diabetes Mellitus Type 1: Yes (??) - HEMATOLOGICAL/ONCOLOGICAL Hx Anemia: Yes - INTEGUMENTARY Hx Dermatological Problems: No - MUSCULOSKELETAL/RHEUMATOLOGICAL Hx Musculoskeletal Disorders: No - PSYCHIATRIC Hx Substance Use: No - SURGICAL HISTORY Hx Surgeries: Yes Hx Cardiac Catheterization: Yes Hx Coronary Artery Bypass Graft: Yes Other/Comment: CABG/PPM - ANESTHESIA Hx Anesthesia: Yes Hx Anesthesia Reactions: No Meds Allergies/Adverse Reactions: Allergies Allergy/AdvReac Type Severity Reaction Status Date / Time aspirin Allergy Intermediate .HIVES Verified 05/01/17 20:29 shellfish derived Allergy Intermediate .HIVES Verified 05/01/17 20:29 - Medications Medications: Current Medications Amlodipine Besylate (Norvasc) 10 mg PO DAILY [facility] Atorvastatin Calcium (Lipitor) 40 mg PO [facility] Calcium Acetate (Phoslo) 667 mg PO BID [facility] Last Admin: 05/03/17 08:33 Dose: 667 mg Clopidogrel Bisulfate (Plavix) 75 mg PO DAILY [facility] Last Admin: 05/03/17 08:36 Dose: 75 mg Docusate Sodium (Colace Liquid) 100 mg PO BID [facility] Last Admin: 05/03/17 08:30 Dose: 100 mg Epoetin Prasanth (Procrit) 10,[address] [facility] Last Admin: 05/02/17 16:36 Dose: 10,000 unit Heparin Sodium (Porcine) (Heparin) 5,000 units SC Q8H [facility] PRN Reason: Protocol Last Admin: 05/03/17 14:44 Dose: 5,000 units Insulin Detemir (Levemir) 24 units SC [facility] Insulin Human Lispro (Humalog) 0 units SC ACHS [facility] PRN Reason: Protocol Last Admin: 05/03/17 12:41 Dose: Not Given Insulin Human Lispro (Humalog) 4 units SC AC [facility] Last Admin: 05/03/17 12:41 Dose: 4 unit Metoprolol Tartrate (Lopressor) 25 mg PO Q12 [facility] Last Admin: 05/03/17 09:32 Dose: 25 mg Multivitamins/Minerals (Therapeutic-M Tab) 1 tab PO DAILY [facility] Last Admin: 05/03/17 08:34 Dose: 1 tab Pantoprazole Sodium (Protonix Susp) 40 mg PO DAILY [facility] Last Admin: 05/03/17 08:34 Dose: 40 mg Results - Vital Signs Recent Vital Signs: Last Vital Signs Temp 97.0 F L 05/03/17 08:18 Pulse 70 05/03/17 09:32 Resp 20 05/03/17 08:18 BP 122/59 L 05/03/17 09:32 Pulse Ox 98 05/03/17 08:18 - Labs Result Diagrams: 05/02/17 05:29 05/03/17 05:30 Labs: Laboratory Results - last 24 hr 05/02/17 05/02/17 05/02/17 06:50 06:50 11:09 Sodium Potassium Chloride Carbon Dioxide Anion Gap BUN Creatinine Est GFR ( Amer) Est GFR (Non-Af Amer) POC Glucose (mg/dL) 222 H Random Glucose Calcium Phosphorus 2.1 L Total Bilirubin AST ALT Alkaline Phosphatase Total Protein Albumin Globulin Albumin/Globulin Ratio Triglycerides Cholesterol LDL Cholesterol Direct HDL Cholesterol TSH 3rd Generation Hep Bs Antigen Negative Hep Bs Antibody Positive Hepatitis C Antibody Negative 05/02/17 05/02/17 05/03/17 16:11 21:24 05:30 Sodium 139 Potassium 4.3 Chloride 93 L Carbon Dioxide 35 H Anion Gap 15 BUN 36 H Creatinine 6.6 H Est GFR ( Amer) 10 Est GFR (Non-Af Amer) 8 POC Glucose (mg/dL) 137 H 161 H Random Glucose 92 Calcium 9.2 Phosphorus 3.6 Total Bilirubin 0.8 AST 52 ALT 32 Alkaline Phosphatase 96 Total Protein 7.5 Albumin 3.9 Globulin 3.6 Albumin/Globulin Ratio 1.1 Triglycerides 121 Cholesterol 91 LDL Cholesterol Direct < 30 HDL Cholesterol 32 TSH 3rd Generation 2.01 Hep Bs Antigen Hep Bs Antibody Hepatitis C Antibody 05/03/17 05/03/17 06:44 12:18 Sodium Potassium Chloride Carbon Dioxide Anion Gap BUN Creatinine Est GFR ( Amer) Est GFR (Non-Af Amer) POC Glucose (mg/dL) 89 158 H Random Glucose Calcium Phosphorus Total Bilirubin AST ALT Alkaline Phosphatase Total Protein Albumin Globulin Albumin/Globulin Ratio Triglycerides Cholesterol LDL Cholesterol Direct HDL Cholesterol TSH 3rd Generation Hep Bs Antigen Hep Bs Antibody Hepatitis C Antibody
--- NOTE | 2017-05-03 18:46 | PN ---
ENDOCRINOLOGY FOLLOWUP NOTE LOCATION: Room 623. SUBJECTIVE: This is a 76-year-old male with recent uncontrolled type 2 insulin-requiring diabetes, now being followed closely for metabolic management. His glycemic levels are fluctuating, but much improved at this time, and the latest glucose levels have ranged from 89 to 158 mg/dL. The latest chemistry showed a BUN of 36, sodium 139, potassium 4.3, chloride 93, CO2 of 35, glucose 92, creatinine 6.6. ASSESSMENT: This is a 76-year-old male with uncontrolled and decompensated type 2 insulin-requiring diabetes presenting here from the [facility] following a coronary artery bypass graft surgery undertaken at that facility and will be undergoing acute rehabilitation therapy at this facility. He also has diabetic microvascular complications of retinopathy, polyneuropathy and nephropathy with end-stage renal disease, on dialysis dependence. Moreover, he has diabetic macrovascular complications of coronary artery disease and peripheral arterial disease and vasculopathy. PLAN: So at this time, we will continue the same basal and bolus insulin regimen to allow for dose equilibration as the patient actually has a variable and suboptimal little portion intake as per nursing staff. We will continue the Humalog given as 4 units subcu t.i.d. before meals and Levemir given as 24 units subcu at bedtime daily to start tonight. We will titrate incrementally as indicated to optimize metabolic control. We will follow. Cindy Jacobs MD
[2017-05-03] MEDS ORDERED: Insulin Detemir 100 Units/ml Inj SC SCH (22:00)
[2017-05-04] MEDS: Insulin Lispro (humaLOG) 100 Units/ml Inj SC SCH ×7 (07:14→22:14)
[2017-05-04] MEDS: Multivitamin With Minerals Tab PO SCH (08:47)
[2017-05-04] MEDS: Pantoprazole 40 mg Susp UD PO SCH (08:47)
--- NOTE | 2017-05-04 09:15 | CP.PCM.PN ---
Subjective - Date & Time of Evaluation Date of Evaluation: 05/03/17 Time of Evaluation: 12:00 - Subjective Subjective: no acute complaints at present Objective - Vital Signs/Intake and Output Vital Signs (last 24 hours): Temp Pulse Resp BP Pulse Ox 97.5 F L 73 21 117/54 L 98 05/04/17 09:04 05/04/17 09:04 05/04/17 09:04 05/04/17 09:04 05/04/17 09:04 - Medications Medications: Current Medications Amlodipine Besylate (Norvasc) 10 mg PO DAILY [facility] Last Admin: 05/04/17 08:46 Dose: 10 mg Atorvastatin Calcium (Lipitor) 40 mg PO HS [facility] Last Admin: 05/03/17 22:37 Dose: 40 mg Calcium Acetate (Phoslo) 667 mg PO BID [facility] Last Admin: 05/04/17 08:47 Dose: 667 mg Clopidogrel Bisulfate (Plavix) 75 mg PO DAILY [facility] Last Admin: 05/04/17 08:47 Dose: 75 mg Docusate Sodium (Colace Liquid) 100 mg PO BID [facility] Last Admin: 05/04/17 08:48 Dose: 100 mg Epoetin Prasanth (Procrit) 10,000 unit IV MWF [facility] Last Admin: 05/02/17 16:36 Dose: 10,000 unit Heparin Sodium (Porcine) (Heparin) 5,000 units SC Q8H [facility] PRN Reason: Protocol Last Admin: 05/04/17 07:01 Dose: 5,000 units Insulin Detemir (Levemir) 24 units SC HS [facility] Last Admin: 05/03/17 22:15 Dose: 24 unit Insulin Human Lispro (Humalog) 0 units SC ACHS [facility] PRN Reason: Protocol Last Admin: 05/04/17 07:14 Dose: Not Given Insulin Human Lispro (Humalog) 4 units SC AC [facility] Last Admin: 05/04/17 08:45 Dose: 4 unit Metoprolol Tartrate (Lopressor) 25 mg PO Q12 [facility] Last Admin: 05/04/17 08:46 Dose: 25 mg Multivitamins/Minerals (Therapeutic-M Tab) 1 tab PO DAILY [facility] Last Admin: 05/04/17 08:47 Dose: 1 tab Pantoprazole Sodium (Protonix Susp) 40 mg PO DAILY [facility] Last Admin: 05/04/17 08:47 Dose: 40 mg - Labs Labs: 05/02/17 05:29 05/03/17 05:30 - Head Exam Head Exam: ATRAUMATIC, NORMAL INSPECTION, NORMOCEPHALIC - Eye Exam Eye Exam: EOMI, Normal appearance Pupil Exam: NORMAL ACCOMODATION, PERRL - ENT Exam ENT Exam: Mucous Membranes Moist, Normal Exam - Neck Exam Neck Exam: Normal Inspection - Respiratory Exam Respiratory Exam: Clear to Ausculation Bilateral, NORMAL BREATHING PATTERN - Cardiovascular Exam Cardiovascular Exam: REGULAR RHYTHM - GI/Abdominal Exam GI & Abdominal Exam: Normal Bowel Sounds - Rectal Exam Rectal Exam: NORMAL INSPECTION - Exam External exam: NORMAL EXTERNAL EXAM - Extremities Exam Extremities Exam: Full ROM, Normal Capillary Refill, Normal Inspection - Back Exam Back Exam: NORMAL INSPECTION - Neurological Exam Neurological Exam: Alert, Awake Neuro motor strength exam: Left Upper Extremity: 3, Right Upper Extremity: 3, Left Lower Extremity: 3, Right Lower Extremity: 3 - Psychiatric Exam Psychiatric exam: Normal Affect, Normal Mood - Skin Skin Exam: Dry, Normal Color Assessment and Plan (1) S/P CABG (coronary artery bypass graft) Status: Acute - Assessment and Plan (Free Text) Assessment: plan for physical, occupational and rec therapy for range of motion, strengthening transfers and gait training
--- NOTE | 2017-05-04 09:25 | CON ---
RENAL CONSULTATION REQUESTED BY: Dr. Keila Colón. LOCATION: The patient is located in rehab, room 623, bed 1. REASON FOR RENAL CONSULTATION: End-stage renal disease, for continuation of the hemodialysis, status post CABG. 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 The patient was found to have an elevated troponin levels more than 34. Subsequently, the patient underwent a cardiac cath and with multivessel disease requiring CABG. The patient underwent a CABG about a week ago. Now, the patient was transferred to the acute rehab for continuation of the physical therapy. The patient is not in any acute distress. The patient underwent hemodialysis last night without any complication. Denies any chest pain, palpitation. Denies any fever or cough. The patient is forgetting things recently and the patient underwent CAT scan of the head in the medical center, which was negative. As per the patient, he did not go for the rehab this morning and discussed with the nurse. The patient added to rehab at 10:30 this morning. The patient is not in any distress. PAST MEDICAL HISTORY: Significant for longstanding hypertension; diabetes; coronary artery disease; hyperlipidemia; end-stage renal disease, on hemodialysis 3 times a week. PAST SURGICAL HISTORY: Status post left-upper extremity AV fistula and also status post pacemaker placement and stent placement about a year ago and CABG about 1 week ago. ALLERGIES: ALLERGIC TO ASPIRIN, SHELLFISH. SOCIAL HISTORY: The patient was an ex-smoker. No alcohol. No drug abuse. PERSONAL HISTORY: He is and he has very supportive family. CURRENT MEDICATIONS: Include as follows, Colace 100 mg p.o. b.i.d., subcu heparin 5000 q. 8 hours and Humalog 4 units subcu before meals and Levemir 24 units subcu at bedtime and Lipitor 40 mg p.o. at bedtime, metoprolol 25 mg p.o. q. 12 hours, amlodipine 10 mg daily and PhosLo 667 mg p.o. b.i.d., Plavix 75 mg daily and Epogen 10,000 units 3 times a week, Protonix 40 mg p.o. daily and multivitamin 1 tablet daily. REVIEW OF THE SYSTEMS: Significant for generalized weakness and debility. All other review of systems reviewed and are negative. 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 VITAL SIGNS: Blood pressure 122/59, pulse 70, respirations about 20, temperature 97, saturation 98%. Height 5 feet 6 inches and weight is 155 pounds. HEENT: Pupils are normal and reactive to light and accommodation. Conjunctivae are pink. Sclerae are anicteric. Tongue is moist. Trachea is midline. LUNGS: Symmetric on both sides. Bilateral breath sounds present. Clear on auscultation. CARDIOVASCULAR SYSTEM: [place] at the fifth intercostal space, midclavicular line. S1 and S2 audible. No murmur. No gallop. The patient has a midsternal scar present from the recent CABG. ABDOMEN: Normal in appearance, soft, tympanic. No guarding. No rigidity. No hepatosplenomegaly. CENTRAL NERVOUS SYSTEM: The patient is alert, awake, oriented x2 to 3. Sensorimotor system is grossly within normal limits. Cranial nerves II through XII grossly intact. EXTREMITIES: No cyanosis. No clubbing. No edema. LABORATORY DATA: His current laboratory data includes as follows. As of 05/03/2017, sodium 139, potassium 4.3, chloride 93, CO2 of 35, BUN 36, creatinine 6.6 and glucose 89 and calcium is 9.2, phosphorus 3.6, total bili 0.8, AST 52, ALT 32, alkaline phosphatase 96, total protein 7.5, albumin is 3.6 and triglycerides 121, cholesterol is 91, LDL less than 30, HDL is 32, TSH is 2.0. His Accu-Chek this morning is 158. 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 1. End-stage renal disease. Continue hemodialysis 3 times a week, Friday, , Friday. 2. Hypertension. Blood pressure is stable. Continue metoprolol. 3. Diabetes. Sugars are under control. Continue insulin as per the Endocrinology. 4. Continue physical therapy as per the rehab recommendations. Discussed with the patient's family at bedside. We will follow with you. Thank you for allowing me to participate in your patient's care. The patient underwent hemodialysis last night without any complications. Tasha Rodrigues MD
--- NOTE | 2017-05-04 12:10 | CP.PCM.PN ---
Subjective - Date & Time of Evaluation Date of Evaluation: 05/04/17 Time of Evaluation: 11:30 - Subjective Subjective: no acute complaints at present Objective - Vital Signs/Intake and Output Vital Signs (last 24 hours): Temp Pulse Resp BP Pulse Ox 97.5 F L 73 21 117/54 L 98 05/04/17 09:04 05/04/17 09:04 05/04/17 09:04 05/04/17 09:04 05/04/17 09:04 - Medications Medications: Current Medications Amlodipine Besylate (Norvasc) 10 mg PO DAILY [facility] Last Admin: 05/04/17 08:46 Dose: 10 mg Atorvastatin Calcium (Lipitor) 40 mg PO HS [facility] Last Admin: 05/03/17 22:37 Dose: 40 mg Calcium Acetate (Phoslo) 667 mg PO BID [facility] Last Admin: 05/04/17 08:47 Dose: 667 mg Clopidogrel Bisulfate (Plavix) 75 mg PO DAILY [facility] Last Admin: 05/04/17 08:47 Dose: 75 mg Docusate Sodium (Colace Liquid) 100 mg PO BID [facility] Last Admin: 05/04/17 08:48 Dose: 100 mg Epoetin Prasanth (Procrit) 10,000 unit IV MWF [facility] Last Admin: 05/02/17 16:36 Dose: 10,000 unit Heparin Sodium (Porcine) (Heparin) 5,000 units SC Q8H [facility] PRN Reason: Protocol Last Admin: 05/04/17 07:01 Dose: 5,000 units Insulin Detemir (Levemir) 24 units SC HS [facility] Last Admin: 05/03/17 22:15 Dose: 24 unit Insulin Human Lispro (Humalog) 0 units SC ACHS [facility] PRN Reason: Protocol Last Admin: 05/04/17 07:14 Dose: Not Given Insulin Human Lispro (Humalog) 4 units SC AC [facility] Last Admin: 05/04/17 08:45 Dose: 4 unit Lactulose (Enulose) 20 gm PO DAILY PRN PRN Reason: Constipation Metoprolol Tartrate (Lopressor) 25 mg PO Q12 [facility] Last Admin: 05/04/17 08:46 Dose: 25 mg Multivitamins/Minerals (Therapeutic-M Tab) 1 tab PO DAILY [facility] Last Admin: 05/04/17 08:47 Dose: 1 tab Pantoprazole Sodium (Protonix Susp) 40 mg PO DAILY [facility] Last Admin: 05/04/17 08:47 Dose: 40 mg - Labs Labs: 05/02/17 05:29 05/03/17 05:30 - Head Exam Head Exam: ATRAUMATIC, NORMAL INSPECTION, NORMOCEPHALIC - Eye Exam Eye Exam: EOMI, Normal appearance, PERRL Pupil Exam: NORMAL ACCOMODATION - ENT Exam ENT Exam: Mucous Membranes Moist, Normal Exam - Neck Exam Neck Exam: Normal Inspection - Respiratory Exam Respiratory Exam: NORMAL BREATHING PATTERN - Cardiovascular Exam Cardiovascular Exam: REGULAR RHYTHM - GI/Abdominal Exam GI & Abdominal Exam: Soft - Rectal Exam Rectal Exam: NORMAL INSPECTION - Exam External exam: NORMAL EXTERNAL EXAM - Extremities Exam Extremities Exam: Full ROM, Normal Capillary Refill - Back Exam Back Exam: NORMAL INSPECTION - Neurological Exam Neurological Exam: Alert, Awake Neuro motor strength exam: Left Upper Extremity: 3, Right Upper Extremity: 3, Left Lower Extremity: 3, Right Lower Extremity: 3 - Psychiatric Exam Psychiatric exam: Normal Affect, Normal Mood - Skin Skin Exam: Dry, Intact Assessment and Plan (1) S/P CABG (coronary artery bypass graft) Assessment & Plan: plan for physical, occupational and rec therapy Status: Acute
[2017-05-04] MEDS: Insulin Detemir 100 Units/ml Inj SC SCH (22:13)
[2017-05-05 06:30] LABS: HEMOGLOBIN 11.4 g/dL (12.0-18.0); MEAN CELL VOLUME 92.3 fl (80.0-94.0); MEAN CORPUSCULAR HEMOGLOBIN 30.2 pg (27.0-31.0); MEAN CORPUSCULAR HGB CONC 32.7 g/dL (33.0-37.0); RBC 3.79 Mil/uL (4.40-5.90); RED CELL DISTRIBUTION WIDTH 18.3 % (11.5-14.5); WHITE BLOOD COUNT 9.1 K/uL (4.8-10.8)
[2017-05-05] MEDS: Insulin Lispro (humaLOG) 100 Units/ml Inj SC SCH ×7 (06:30→22:10)
--- NOTE | 2017-05-05 07:09 | CP.PCM.PCO ---
Physician Communication Note - Physician Communication Note Physician Communication Note: Patient became dizzy going to the bathroom. Improved lying back on bed
[2017-05-05] MEDS: Multivitamin With Minerals Tab PO SCH (08:15)
[2017-05-05] MEDS: Pantoprazole 40 mg Susp UD PO SCH (08:15)
--- NOTE | 2017-05-05 08:34 | PN ---
DATE: ENDOCRINOLOGY FOLLOWUP NOTE LOCATION: Room 623. SUBJECTIVE: This is a 76-year-old male with recent uncontrolled type 2 insulin-requiring diabetes, now being followed closely for metabolic management. He is undergoing acute rehabilitation therapy after a coronary artery bypass graft surgery undertaken at the [facility]. His glycemic levels are fluctuating but improved and continues to have variable and suboptimal meal portions as per the nursing staff. His glucose levels today have ranged from 84-128 mg/dL. It was 167-232 last night as noted. The latest chemistries showed a BUN of 36, sodium 139, potassium 4.3, chloride 93, CO2 of 35, glucose 92, and creatinine 6.6. His hemoglobin A1c is 7.1% which is near optimal as noted. ASSESSMENT: This is a 76-year-old male with uncontrolled and decompensated type 2 insulin-requiring diabetes, presenting here for acute rehabilitation following a coronary artery bypass graft surgery and is now being followed closely for metabolic management. He also has diabetic microvascular complications of retinopathy, polyneuropathy, and nephropathy with end-stage renal disease and dialysis dependence. Moreover, he also has diabetic macrovascular complications of coronary artery disease and a recent coronary artery bypass graft surgery with underlying peripheral arterial disease and vasculopathy. PLAN OF MANAGEMENT: As discussed with the patient and staff, we will modify once again his current insulin regimen and lower the basal insulin with Levemir to be given as 18 units subcu at bedtime daily to start tonight. We will also continue the low dose Humalog given as 4 units subcu t.i.d. before meals to cover his prandial insulin requirements thereof. We will continue the modified low-dose correction scale using Humalog insulin as given. We will titrate incremental as indicated to optimize metabolic control. We will follow and advise accordingly. Cindy Jacobs MD
[2017-05-05] MEDS ORDERED: Sod Polystyrene Sulf 15 gm/60 ml Susp PO ONE (10:00)
--- NOTE | 2017-05-05 14:16 | RAD ---
HISTORY: Shortness of breath. COMPARISON: No prior. FINDINGS: LUNGS: Retrocardiac infiltrate. PLEURA: Suspected left pleural effusion difficult to differentiate from left lower lobe infiltrate CARDIOVASCULAR: Cardiomegaly. No evidence of acute, significant cardiovascular disease. Position/ configuration of pacemaker Satisfactory. Incidental Finding(s): Postoperative changes related to sternotomy. OSSEOUS STRUCTURES: No significant abnormalities. VISUALIZED UPPER ABDOMEN: Normal. OTHER FINDINGS: None. IMPRESSION: Left lower lobe infiltrate inseparable from left pleural effusion.
--- NOTE | 2017-05-05 16:08 | PN ---
ENDOCRINOLOGY FOLLOWUP NOTE LOCATION: In the room #623. This is a 76-year-old male with recent uncontrolled type 2 insulin-requiring diabetes, presenting here for acute rehabilitation following a recent coronary artery bypass graft surgery and is now being followed closely for metabolic management. His glucose values have improved overnight as noted and have ranged from 167-194 mg/dL. The latest chemistry showed a BUN of 70, sodium 132, potassium 5.8, chloride 88, CO2 of 27, glucose 166 and creatinine 9.7. So at this time, we will continue the same basal and bolus insulin regimen to allow for dose equilibration and keep him on the Levemir given as 18 units subcu at bedtime daily as ordered. We will continue the Humalog given the small dose of 4 units subcu t.i.d. before meals as ordered. We will titrate incrementally as indicated to optimize metabolic control. We will follow. Cindy Jacobs MD
--- NOTE | 2017-05-05 16:46 | CP.PCM.PN ---
Subjective - Date & Time of Evaluation Date of Evaluation: 05/05/17 Time of Evaluation: 17:45 - Subjective Subjective: Patient seen and examined bedside. Feeling well.With episode of dizziness overnight upon standing , but has resolved . Participated with PT. Denies any CP or SOB Hemodynamically stable, afebril. Objective - Vital Signs/Intake and Output Vital Signs (last 24 hours): Temp Pulse Resp BP Pulse Ox 96.0 F L 89 18 128/71 100 05/05/17 08:02 05/05/17 15:47 05/05/17 08:02 05/05/17 08:14 05/05/17 08:02 - Medications Medications: Current Medications Amlodipine Besylate (Norvasc) 10 mg PO DAILY [facility] Last Admin: 05/05/17 08:14 Dose: 10 mg Atorvastatin Calcium (Lipitor) 40 mg PO HS [facility] Last Admin: 05/04/17 22:07 Dose: 40 mg Calcium Acetate (Phoslo) 667 mg PO BID [facility] Last Admin: 05/05/17 08:14 Dose: 667 mg Clopidogrel Bisulfate (Plavix) 75 mg PO DAILY [facility] Last Admin: 05/05/17 08:15 Dose: 75 mg Docusate Sodium (Colace Liquid) 100 mg PO BID [facility] Last Admin: 05/05/17 08:11 Dose: 100 mg Epoetin Prasanth (Procrit) 10,000 unit IV MWF [facility] Last Admin: 05/02/17 16:36 Dose: 10,000 unit Heparin Sodium (Porcine) (Heparin) 5,000 units SC Q8H [facility] PRN Reason: Protocol Last Admin: 05/05/17 13:46 Dose: 5,000 units Insulin Detemir (Levemir) 18 units SC HS [facility] Last Admin: 05/04/17 22:13 Dose: 18 units Insulin Human Lispro (Humalog) 0 units SC ACHS [facility] PRN Reason: Protocol Last Admin: 05/05/17 12:38 Dose: Not Given Insulin Human Lispro (Humalog) 4 units SC AC [facility] Last Admin: 05/05/17 12:39 Dose: 4 unit Lactulose (Enulose) 20 gm PO DAILY [facility] PRN Reason: Constipation Last Admin: 05/04/17 17:07 Dose: 20 gm Metoprolol Tartrate (Lopressor) 25 mg PO Q12 [facility] Last Admin: 05/05/17 08:14 Dose: 25 mg Multivitamins/Minerals (Therapeutic-M Tab) 1 tab PO DAILY [facility] Last Admin: 05/05/17 08:15 Dose: 1 tab Pantoprazole Sodium (Protonix Susp) 40 mg PO DAILY [facility] Last Admin: 05/05/17 08:15 Dose: 40 mg - Labs Labs: 05/05/17 05:55 05/05/17 05:55 - Constitutional Appears: Non-toxic, No Acute Distress - Head Exam Head Exam: ATRAUMATIC, NORMAL INSPECTION, NORMOCEPHALIC - Eye Exam Eye Exam: EOMI, Normal appearance, PERRL Pupil Exam: NORMAL ACCOMODATION - ENT Exam ENT Exam: Mucous Membranes Moist, Normal Exam - Neck Exam Neck Exam: Full ROM, Normal Inspection - Respiratory Exam Respiratory Exam: Clear to Ausculation Bilateral, NORMAL BREATHING PATTERN. absent: Rales, Rhonchi, Wheezes - Cardiovascular Exam Cardiovascular Exam: REGULAR RHYTHM, RRR, +S1, +S2. absent: JVD - GI/Abdominal Exam GI & Abdominal Exam: Soft, Normal Bowel Sounds. absent: Guarding, Tenderness, Rebound - Rectal Exam Rectal Exam: Deferred - Extremities Exam Extremities Exam: Full ROM, Normal Capillary Refill, Normal Inspection. absent : Calf Tenderness, Pedal Edema - Back Exam Back Exam: NORMAL INSPECTION - Neurological Exam Neurological Exam: Alert, Awake, CN II-XII Intact, Oriented x3 - Psychiatric Exam Psychiatric exam: Flat Affect - Skin Skin Exam: Dry, Normal Color, Warm Assessment and Plan - Assessment and Plan (Free Text) Assessment: 76 years transferred to acute s/p NSTEMI and CABG at [facility], for physical therapy .He has PMH significant for ESRD on HD MWF, DM2, CAD s/p stents in the past. Patient is stable , participating with PT. 1. NSTEMI s/p CABG continue Cardiac Rehab [facility] consult with Dr. Claudio appreciated Cont Lipitor,Plavix, Metoprolol follow up with cardiothoracic surgeon Dr. Peters, appointment 05/06 2. ESRD on HD MWF Consult Dr Rodrigues nephrology continue HD as scheduled 3. Anemia of chronic Kidney disease Epogen at dialysis 4. DM insulin requiring Dr Jacobs endocrinology on consult Levemir 18 units HSW and Aaspart 4 units SQ AC Aspart sliding scale 5. A Fib/ A flutter/SSS rate controlled Not to restart Therapeytic Anticoagulant as yet as per Cardio thoracic Surgery 6. HTN on norvasc and Metoprolol controlled 7.Constipation on colace and lactulose 8. GI PPx Pantoprazole 9.DVT PPx heparin [facility]
[2017-05-05] MEDS: EPOETIN ALFA 10,000 UNIT/ML ML IV SCH (17:19)
[2017-05-05] MEDS: Insulin Detemir 100 Units/ml Inj SC SCH (21:50)
[2017-05-06] MEDS: Insulin Lispro (humaLOG) 100 Units/ml Inj SC SCH ×7 (06:37→22:03)
[2017-05-06] MEDS: Multivitamin With Minerals Tab PO SCH (08:28)
[2017-05-06] MEDS: Pantoprazole 40 mg Susp UD PO SCH (08:28)
--- NOTE | 2017-05-06 09:35 | CP.PCM.PN ---
Subjective - Date & Time of Evaluation Date of Evaluation: 05/06/17 Time of Evaluation: 09:35 - Subjective Subjective: pt is seen and examined, follow up consult is dictated #[id number] s/p hd on 05/05/2017, uf 2lit stable hd tx Objective - Vital Signs/Intake and Output Vital Signs (last 24 hours): Temp Pulse Resp BP Pulse Ox 97.8 F 71 19 108/50 L 99 05/06/17 08:45 05/06/17 08:45 05/06/17 08:45 05/06/17 08:45 05/06/17 08:45 - Medications Medications: Current Medications Amlodipine Besylate (Norvasc) 10 mg PO DAILY [facility] Last Admin: 05/06/17 08:35 Dose: 10 mg Atorvastatin Calcium (Lipitor) 40 mg PO HS [facility] Last Admin: 05/05/17 21:52 Dose: 40 mg Calcium Acetate (Phoslo) 667 mg PO BID [facility] Last Admin: 05/06/17 08:28 Dose: 667 mg Clopidogrel Bisulfate (Plavix) 75 mg PO DAILY [facility] Last Admin: 05/06/17 08:28 Dose: 75 mg Docusate Sodium (Colace Liquid) 100 mg PO BID [facility] Last Admin: 05/06/17 08:27 Dose: 100 mg Epoetin Prasanth (Procrit) 10,000 unit IV MWF@1600 [facility] Heparin Sodium (Porcine) (Heparin) 5,000 units SC Q8H [facility] PRN Reason: Protocol Last Admin: 05/06/17 06:10 Dose: 5,000 units Insulin Detemir (Levemir) 18 units SC HS [facility] Last Admin: 05/05/17 21:50 Dose: 18 units Insulin Human Lispro (Humalog) 0 units SC ACHS [facility] PRN Reason: Protocol Last Admin: 05/06/17 06:37 Dose: Not Given Insulin Human Lispro (Humalog) 4 units SC AC [facility] Last Admin: 05/06/17 08:27 Dose: 4 unit Lactulose (Enulose) 20 gm PO DAILY [facility] PRN Reason: Constipation Last Admin: 05/04/17 17:07 Dose: 20 gm Metoprolol Tartrate (Lopressor) 25 mg PO Q12 [facility] Last Admin: 05/06/17 08:35 Dose: Not Given Multivitamins/Minerals (Therapeutic-M Tab) 1 tab PO DAILY [facility] Last Admin: 05/06/17 08:28 Dose: 1 tab Pantoprazole Sodium (Protonix Susp) 40 mg PO DAILY [facility] Last Admin: 05/06/17 08:28 Dose: 40 mg - Labs Labs: 05/05/17 05:55 05/05/17 05:55
--- NOTE | 2017-05-06 13:59 | CP.PCM.PN ---
Subjective - Date & Time of Evaluation Date of Evaluation: 05/06/17 Time of Evaluation: 12:00 - Subjective Subjective: no acute complaints at present Objective - Vital Signs/Intake and Output Vital Signs (last 24 hours): Temp Pulse Resp BP Pulse Ox 97.8 F 71 19 108/50 L 99 05/06/17 08:45 05/06/17 08:45 05/06/17 08:45 05/06/17 08:45 05/06/17 08:45 - Medications Medications: Current Medications Amlodipine Besylate (Norvasc) 10 mg PO DAILY [facility] Last Admin: 05/06/17 08:35 Dose: 10 mg Atorvastatin Calcium (Lipitor) 40 mg PO HS [facility] Last Admin: 05/05/17 21:52 Dose: 40 mg Calcium Acetate (Phoslo) 667 mg PO BID [facility] Last Admin: 05/06/17 08:28 Dose: 667 mg Clopidogrel Bisulfate (Plavix) 75 mg PO DAILY [facility] Last Admin: 05/06/17 08:28 Dose: 75 mg Docusate Sodium (Colace Liquid) 100 mg PO BID [facility] Last Admin: 05/06/17 08:27 Dose: 100 mg Epoetin Prasanth (Procrit) 10,000 unit IV MWF@1600 [facility] Heparin Sodium (Porcine) (Heparin) 5,000 units SC Q8@0600,1400,2200 [facility] PRN Reason: Protocol Last Admin: 05/06/17 13:26 Dose: 5,000 units Insulin Detemir (Levemir) 18 units SC HS [facility] Last Admin: 05/05/17 21:50 Dose: 18 units Insulin Human Lispro (Humalog) 0 units SC ACHS [facility] PRN Reason: Protocol Last Admin: 05/06/17 12:38 Dose: Not Given Insulin Human Lispro (Humalog) 4 units SC AC [facility] Last Admin: 05/06/17 12:38 Dose: 4 unit Lactulose (Enulose) 20 gm PO DAILY [facility]N PRN Reason: Constipation Last Admin: 05/04/17 17:07 Dose: 20 gm Metoprolol Tartrate (Lopressor) 25 mg PO Q12 [facility] Last Admin: 05/06/17 08:35 Dose: Not Given Multivitamins/Minerals (Therapeutic-M Tab) 1 tab PO DAILY [facility] Last Admin: 05/06/17 08:28 Dose: 1 tab Pantoprazole Sodium (Protonix Susp) 40 mg PO DAILY [facility] Last Admin: 05/06/17 08:28 Dose: 40 mg - Labs Labs: 05/05/17 05:55 05/05/17 05:55 - Head Exam Head Exam: ATRAUMATIC - Eye Exam Eye Exam: EOMI, Normal appearance, PERRL Pupil Exam: NORMAL ACCOMODATION - ENT Exam ENT Exam: Mucous Membranes Moist, Normal Exam - Neck Exam Neck Exam: Normal Inspection - Respiratory Exam Respiratory Exam: Clear to Ausculation Bilateral, NORMAL BREATHING PATTERN - Cardiovascular Exam Cardiovascular Exam: REGULAR RHYTHM - GI/Abdominal Exam GI & Abdominal Exam: Soft, Normal Bowel Sounds - Rectal Exam Rectal Exam: NORMAL INSPECTION - Exam External exam: NORMAL EXTERNAL EXAM - Extremities Exam Extremities Exam: Full ROM, Normal Capillary Refill - Back Exam Back Exam: NORMAL INSPECTION - Neurological Exam Neurological Exam: Alert, Awake Neuro motor strength exam: Left Upper Extremity: 3, Right Upper Extremity: 3, Left Lower Extremity: 3, Right Lower Extremity: 3 - Psychiatric Exam Psychiatric exam: Normal Affect, Normal Mood - Skin Skin Exam: Dry, Intact Assessment and Plan (1) S/P CABG (coronary artery bypass graft) Assessment & Plan: plan for physical, occupational and rec and speech therapy Status: Acute
--- NOTE | 2017-05-06 14:38 | PN ---
FOLLOWUP RENAL CONSULTATION LOCATION: Patient is located in room 623, bed 1, acute rehab, [facility]. REQUESTED BY: Keila Colón DO. REASON FOR FOLLOWUP: End-stage renal disease, continuation of the hemodialysis. HISTORY OF PRESENT ILLNESS: Mr. Lee is a 76 years old elderly very pleasant English male with a past medical history significant for longstanding hypertension, diabetes, end-stage renal disease, coronary artery disease, secondary hyperparathyroidism, status post coronary stent 1 year ago and also pacemaker placement, who was admitted 2 weeks ago to [facility] with a sudden onset of shortness of breath and chest discomfort and patient was found to have elevated troponin levels more than 30 and subsequently patient underwent cardiac cath requiring CABG for multiple vessel disease. Patient underwent CABG and transferred to acute rehab for physical therapy. Patient is feeling much better, not in acute distress. Denies any headache or dizziness, denies any chest pain or palpitations, denies any fever or cough. No abdominal pain. No nausea, vomiting, diarrhea. Patient underwent hemodialysis yesterday, had ultrafiltration about 2 L, tolerated very well. No complaints this morning. PHYSICAL EXAMINATION: VITAL SIGNS: Blood pressure 108/50, pulse 71, respirations 19, temperature 97.8, saturation 99%. Height 5 feet 6 inches and weight is 165 pounds. GENERAL: Mr. Lee is a 76 years old elderly male, moderately built, moderately nourished, not in any distress. HEENT: Pupils normal, reactive to light and accommodation. Conjunctivae pink. Sclerae anicteric. Tongue is most. Trachea is midline. LUNGS: Symmetry on both sides. Bilateral breath sounds present. Clear on auscultation. CARDIOVASCULAR SYSTEM: Moran at the 5th intercostal space, midclavicular line. S1, S2 audible. No murmur or gallop. ABDOMEN: Normal in appearance, soft, tympanic. No guarding, no rigidity, no hepatosplenomegaly. CENTRAL NERVOUS SYSTEM: Patient is alert, awake, oriented x3. Nonfocal neuro examination. Cranial nerves II through XII grossly intact. Sensory and motor system is within normal limits. EXTREMITIES: No cyanosis, no clubbing, no edema. CURRENT MEDICATIONS: Include as follows: Colace 100 mg p.o. b.i.d.; lactulose 20 g p.o. daily; subcu heparin 5000 units q. 8 hours; Humalog for sliding scale and also Humalog 4 units subcu a.c.; Levemir 8 units subcu at bedtime; Lipitor 40 mg p.o. at bedtime; Lopressor 25 mg p.o. q. 12 hours; Norvasc 10 mg daily; PhosLo 667 mg p.o. b.i.d.; Plavix 75 mg p.o. daily and Epogen 10,000 units 3 times a week, Friday, Friday and Friday; Protonix 40 mg daily; and multivitamins with minerals 1 tablet daily. LABORATORY DATA: Include as follows: As of 05/05/2017, WBC 9.1, hemoglobin 11.4, hematocrit is 34.9, platelets 197. Sodium 132, potassium 5.8, chloride 88, CO2 of 27, BUN 70, creatinine 9.7, glucose is 166, and calcium is 9.0. ASSESSMENT: In summary, Mr. Lee is about 76 years old elderly English male with a history of hypertension; diabetes; congestive heart failure; coronary artery disease; status post stents; status post pacemaker; end-stage renal disease, on hemodialysis 3 times a week, Friday, Friday, and Friday, was admitted with sudden onset of shortness of breath and chest pain and found to have multivessel disease after cardiac cath requiring coronary artery bypass grafting. 1. End-stage renal disease. Continue hemodialysis 3 times a week; Friday, Friday, and Friday. 2. Coronary artery disease, status post coronary artery bypass grafting 2 weeks ago. Continue rehab. 3. Hypertension. 4. Diabetes. 5. Hyperlipidemia. Continue all his current medications; Norvasc, metoprolol, Lipitor, insulin, Protonix for the gastrointestinal prophylaxis, multivitamins, and phosphate binders. PhosLo 667 mg p.o. b.i.d., we will change it to 3 times a day . Continue physical therapy as per the rehab. Thank you for allowing me to participate in your patient's care. Tasha Rodrigues MD [facility] # [id number]
--- NOTE | 2017-05-06 15:24 | PN ---
LOCATION: Room 623. SUBJECTIVE: This is a 76-year-old male undergoing acute rehabilitation therapy following a coronary artery bypass graft surgery and is now also being followed closely for metabolic management because of recent hyperglycemic acceleration as noted thereof. His glucose levels are fluctuating but much improved as noted overnight and the glucose levels have ranged from 140 to 155 and 200 mg/dL. His latest chemistry showed a BUN of 70, sodium 132, potassium 5.8, chloride 88, CO2 of 27, glucose 166, and creatinine 9.7. So, at this time, we will continue the same basal and bolus insulin regimen to allow for dose equilibration and keep him on the Levemir given at a modified dose of 18 units subcu at bedtime daily as ordered. We will continue the Humalog given as 4 units subcu t.i.d. before meals as given. We will titrate incrementally as indicated to optimize metabolic control. We will obtain serial chemistries and supplement accordingly as needed. We will follow. Cindy Jacobs MD
[2017-05-06] MEDS: Insulin Detemir 100 Units/ml Inj SC SCH (22:06)
[2017-05-07] MEDS: Insulin Lispro (humaLOG) 100 Units/ml Inj SC SCH ×8 (08:39→21:46)
[2017-05-07] MEDS: Multivitamin With Minerals Tab PO SCH (08:45)
[2017-05-07] MEDS: Pantoprazole 40 mg Susp UD PO SCH (08:45)
--- NOTE | 2017-05-07 12:25 | PSY.TMCNF ---
Nursing - Vital Signs Vital Signs (Last 8 hours): Vital Signs 05/07/17 05/07/17 05/07/17 08:44 09:00 10:00 Temperature 97.5 F L 97.5 F L Pulse Rate 90 90 72 Respiratory 22 22 Rate Blood Pressure 112/50 L 112/50 L 112/50 L O2 Sat by Pulse 100 Oximetry Pain: 0 - Precautions: Precautions: Fall Prevention, Cardiac/Pulmonary - Medications/Other Issues Comment: - SOB, uses prn o2 nasal cannula 2 L. - as per pt's daughter non compliant with checking Blood sugar, would administer insulin levemir at night using insulin pen. - cardio dr. ryan called today stating can take out jose david if ready and healing okay - Consults Comment: seem by nephro, podiatry and endocrine - Skin Incision Site: midsternal, L medial knee Dressing Status: Clean, Dry, Intact Incision: Jose David Intact Incision Line Treatment: MELANIE - Toileting Toileting: Minimal Assistance - Bladder Management Bladder Pattern: Normal Voiding Method: Toilet Bladder Management: Minimal Assistance - Bowel Management Bowel Pattern: Normal Bowel Management: Minimal Assistance - Transfers Transfers: Minimal Assistance - ADL's ADL's: Minimal Assistance - Pain Management Comments: pt denies pain - Patient/Family Teaching Comments: safety , medications, cardiac precautions, DM - Goals/Time Frame Comments: Pt was seen resting in bed prior to visit. Pt reported that he would like to be called "Doc" throughout stay on unit. Pt was able to identify minimal interests such as relaxing at home and taking care of . Pt reported that is diagnosed with Alzheimer's/Dementia. Pt reported he has children nearby. 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 Pt would benefit from recreation therapy sessions to improve leisure awareness level and improve attention to task. - Provider Provider: Elicia Colon RN Physical Therapy - Bed Mobility Bed Mobility: Minimal Assistance - Transfers Sit to Stand: Minimal Assistance - Ambulation Level of Assistance: Verbal Cues, Contact Guard Distance (ft.): 60 Assistive Devices: Rolling Walker - Stair Negotiation Stairs: Level of Assistance: Not Tested - Standing Balance Static Stand: Contact Guard Assist Dynamic Stand: Minimal Assistance Comment: supported standing - Pain Pain (assessed during therapy session): 0 - Insight/Carryover Insight/Carryover: Fair - Patient/Family Education Comment: Sternal precautions, compensatory strategies for ADLs and ADL transfers , DME traininig - Assessment/Plan Assessment: Recommend continued OT services to address balance, strength, safety , DME, endurance, and maintaining sternal precautions during ADLs and ADL transfers - Goals Timeframe: 1 week Goals: MIN A toileting. MIN A toilet txfer. S grooming. S UE dressing. MIN A LE Dressing - Provider Therapist: Lashawn Hahn PT DPT License Number: [id number] Occupational Therapy - Arousal/Attention/Orientation Patient Orientation: Person, Place, Time, Appropriate to Age, Appropriate to Situation - ADL/IADL Self Feeding: Verbal Cues, Set-up Help Grooming: Verbal Cues, Contact Guard, Minimal Assistance Bathing-Upper Extremity: Minimal Assistance Bathing-Lower Extremity: Maximum Assistance Dressing-Upper Extremity: Verbal Cues, Set-up Help, Minimal Assistance Dressing-Lower Extremity: Verbal Cues, Set-up Help, Maximum Assistance - Sitting Balance Static Sitting: Independent with upper extremity support Dynamic Sitting: Reaches within base of support, Requires supervision - Transfers Wheelchair to Bed Transfers: Supervision, Verbal Cues, Moderate Assistance Toilet Transfers: Supervision, Verbal Cues, Moderate Assistance - Wheelchair Management Level of Assistance: Supervision, Verbal Cues, Set-up Help Distance (ft.): 50 - Upper Extremity Status Right Upper Extremity Comment: ROM WFL, MMT not tested secondary to sternal precautions Left Upper Extremity Comment: ROM WFL, MMT not tested secondary to sternal precautions - Pain Pain (assessed during therapy session): 0 - Insight/Carryover Insight/Carryover: Fair - Patient/Family Education Comment: Sternal precautions, compensatory strategies for ADLs and ADL transfers , DME traininig - Assessment/Plan Assessment: Recommend continued OT services to address balance, strength, safety , DME, endurance, and maintaining sternal precautions during ADLs and ADL transfers - Goals Timeframe: 1 week Goals: MIN A toileting. MIN A toilet txfer. S grooming. S UE dressing. MIN A LE Dressing - Provider Therapist: Mirella Dailey License Number: [id number] Speech Therapy - Consult Information Patient on Program: Yes Medical Diagnosis: CABG Treatment Diagnosis: -mild cognitive-linguistic deficits. -mild oral dysphagia - Assessment Memory Impairment: Moderate Dysphagia/Swallowing Impairment: Mild - Plan Assessment: Recommend continued OT services to address balance, strength, safety , DME, endurance, and maintaining sternal precautions during ADLs and ADL transfers - Provider Therapist: Elicia Ram License Number: [id number] Recreational Therapy - Participation Participation: Monitors His/Her Own Leisure Time - Attendance Attendance: Daily - Activities Leisure Activities: Television - Socialization Level of Socialization: Initiates/interacts freely with care givers and peer - Diversional Time Diversional Time: listening to music - Assessment Assessment/Plan: Recommend continued OT services to address balance, strength, safety, DME, endurance, and maintaining sternal precautions during ADLs and ADL transfers - Provider Therapist: Yolanda Hernadez, ADMINISTRATIVE MANAGER #[id number] Nutrition - Current Diet Current Diet/ Supplement/ Feedings: Moderate consistent CHO heart healthy renal dialysis mech altered(finely. chopped) thin liquids - Appetite Percent Meal Consumed: 50-74% - Comments Comments: safety , medications, cardiac precautions, DM - Assessment/Goals/Time Frame Assessment/Goals/Time Frame: - SOB, uses prn o2 nasal cannula 2 L. - as per pt' s daughter non compliant with checking Blood sugar, would administer insulin levemir at night using insulin pen. - cardio dr. ryan called today stating can take out jose david if ready and healing okay - Provider Provider: Anita Heredia RD Rehabilitation Plan - Discharge Plan Estimated Date of Discharge: 05/18/17 Discharge to: Home, Subacute
--- NOTE | 2017-05-07 12:44 | CP.PCM.PN ---
Subjective - Date & Time of Evaluation Date of Evaluation: 05/07/17 Time of Evaluation: 12:43 - Subjective Subjective: Patient seen in room fran were ok'd to remove area was prepped and fran removed. Steristrips applied Objective - Vital Signs/Intake and Output Vital Signs (last 24 hours): Temp Pulse Resp BP Pulse Ox 97.5 F L 72 22 112/50 L 100 05/07/17 10:00 05/07/17 10:00 05/07/17 10:00 05/07/17 10:00 05/07/17 10:00 - Medications Medications: Current Medications Amlodipine Besylate (Norvasc) 10 mg PO DAILY [facility] Last Admin: 05/07/17 08:44 Dose: Not Given Atorvastatin Calcium (Lipitor) 40 mg PO [facility] Last Admin: 05/06/17 21:58 Dose: 40 mg Azithromycin (Zithromax) 500 mg PO DAILY [facility] PRN Reason: Protocol Calcium Acetate (Phoslo) 667 mg PO BID [facility] Last Admin: 05/07/17 08:45 Dose: 667 mg Clopidogrel Bisulfate (Plavix) 75 mg PO DAILY [facility] Last Admin: 05/07/17 08:45 Dose: 75 mg Docusate Sodium (Colace Liquid) 100 mg PO BID [facility] Last Admin: 05/07/17 08:38 Dose: 100 mg Epoetin Prasanth (Procrit) 10,000 unit IV MWF@1600 [facility] Heparin Sodium (Porcine) (Heparin) 5,000 units SC Q8@0600,1400,2200 [facility] PRN Reason: Protocol Last Admin: 05/07/17 06:19 Dose: 5,000 units Insulin Detemir (Levemir) 18 units SC HS [facility] Last Admin: 05/06/17 22:06 Dose: 18 units Insulin Human Lispro (Humalog) 0 units SC ACHS [facility] PRN Reason: Protocol Last Admin: 05/07/17 08:39 Dose: Not Given Insulin Human Lispro (Humalog) 4 units SC AC [facility] Last Admin: 05/07/17 08:41 Dose: 4 unit Lactulose (Enulose) 20 gm PO DAILY PRN PRN Reason: Constipation Last Admin: 05/04/17 17:07 Dose: 20 gm Metoprolol Tartrate (Lopressor) 25 mg PO Q12 [facility] Last Admin: 05/07/17 08:44 Dose: 25 mg Multivitamins/Minerals (Therapeutic-M Tab) 1 tab PO DAILY [facility] Last Admin: 05/07/17 08:45 Dose: 1 tab Pantoprazole Sodium (Protonix Susp) 40 mg PO DAILY [facility] Last Admin: 05/07/17 08:45 Dose: 40 mg - Labs Labs: 05/05/17 05:55 05/05/17 05:55
--- NOTE | 2017-05-07 14:34 | CP.PCM.PN ---
Subjective - Date & Time of Evaluation Date of Evaluation: 05/07/17 Time of Evaluation: 10:35 - Subjective Subjective: The patient was seen and examined at bedside. He states that he feels a little short of breath today but it improves with 2 liters nasal cannula.. However he is saturating well on room air. Participating with physical therapy. For hemodialysis today. Denies any chest pain. He is hemodynamically stable. Objective - Vital Signs/Intake and Output Vital Signs (last 24 hours): Temp Pulse Resp BP Pulse Ox 97.5 F L 72 22 112/50 L 100 05/07/17 10:00 05/07/17 10:00 05/07/17 10:00 05/07/17 10:00 05/07/17 10:00 - Medications Medications: Current Medications Amlodipine Besylate (Norvasc) 10 mg PO DAILY [facility] Last Admin: 05/07/17 08:44 Dose: Not Given Atorvastatin Calcium (Lipitor) 40 mg PO [facility] Last Admin: 05/06/17 21:58 Dose: 40 mg Calcium Acetate (Phoslo) 667 mg PO BID [facility] Last Admin: 05/07/17 08:45 Dose: 667 mg Clopidogrel Bisulfate (Plavix) 75 mg PO DAILY [facility] Last Admin: 05/07/17 08:45 Dose: 75 mg Docusate Sodium (Colace Liquid) 100 mg PO BID [facility] Last Admin: 05/07/17 08:38 Dose: 100 mg Epoetin Prasanth (Procrit) 10,000 unit IV MWF@1600 [facility] Heparin Sodium (Porcine) (Heparin) 5,000 units SC Q8@0600,1400,2200 [facility] PRN Reason: Protocol Last Admin: 05/07/17 13:13 Dose: 5,000 units Insulin Detemir (Levemir) 18 units SC HS [facility] Last Admin: 05/06/17 22:06 Dose: 18 units Insulin Human Lispro (Humalog) 0 units SC ACHS [facility] PRN Reason: Protocol Last Admin: 05/07/17 13:13 Dose: Not Given Insulin Human Lispro (Humalog) 4 units SC AC [facility] Last Admin: 05/07/17 13:15 Dose: 4 unit Lactulose (Enulose) 20 gm PO DAILY [facility] PRN Reason: Constipation Last Admin: 05/04/17 17:07 Dose: 20 gm Levofloxacin (Levaquin) 500 mg PO DAILY [facility] PRN Reason: Protocol Metoprolol Tartrate (Lopressor) 25 mg PO Q12 [facility] Last Admin: 05/07/17 08:44 Dose: 25 mg Multivitamins/Minerals (Therapeutic-M Tab) 1 tab PO DAILY [facility] Last Admin: 05/07/17 08:45 Dose: 1 tab Pantoprazole Sodium (Protonix Susp) 40 mg PO DAILY [facility] Last Admin: 05/07/17 08:45 Dose: 40 mg - Labs Labs: 05/05/17 05:55 05/05/17 05:55 - Additional Findings Additional findings: Physical exam: Constitutional- cooperative, awake, alert. Head- NCAT, PERRL Eye- PERRL, normal accommodation ENT- normal exam, MMM. Neck- normal inspection, supple, no JVD Respiratory- mild rales in left base, no wheezes or rhonchi Cardiovascular- RRR, +S1, +S2 no MRG GI/Abdominal- normal bowel sounds, soft, no mass, no hsm Skin- warm, dry Extremities Exam- normal capillary refill, normal inspection Neurological Exam- alert. Stable gait. Psych- normal mood, normal affect Assessment and Plan - Assessment and Plan (Free Text) Plan: Assessment: 76 years transferred [place] [facility] [place] .He has PMH significant for ESRD on HD MWF, DM2, CAD s/p stents in the past. Patient is stable , participating with PT. 1. 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 Claudio appreciated Cont Lipitor,Plavix, Metoprolol follow up with cardiothoracic surgeon Dr. Peters, appointment 05/06 2. ESRD on HD MWF Consult Dr Rodrigues nephrology continue HD as scheduled -- 3. Anemia of chronic Kidney disease Epogen at dialysis 4. DM insulin requiring Dr Jacobs endocrinology on consult Levemir 18 units HSW and Aaspart 4 units SQ AC Aspart sliding scale 5. A Fib/ A flutter/SSS rate controlled Not to restart Therapeytic Anticoagulant as yet as per Cardio thoracic Surgery 6. HTN on norvasc and Metoprolol controlled 7. LLL infiltrate Likely cause of SOB along with pleural effusion Start Levaquin 500 mg po daily 7.Constipation on colace and lactulose 8. GI PPx Pantoprazole 9.DVT PPx heparin SQH
[2017-05-07] MEDS: EPOETIN ALFA 10,000 UNIT/ML ML IV SCH (17:54)
[2017-05-07] MEDS: Insulin Detemir 100 Units/ml Inj SC SCH (21:56)
--- NOTE | 2017-05-07 22:14 | PN ---
DATE: LOCATION: Room 623. SUBJECTIVE: This is a 76-year-old male, transferred to the acute rehab unit following a recent coronary artery bypass graft surgery and is also now being followed closely for metabolic management. His oral intake is quite variable as per nursing staff and the latest glucose levels today have ranged from 147-171 and 202 mg/dL. His latest chemistries showed a BUN of 70, sodium 132, potassium 5.8, chloride 88, CO2 of 27, glucose 166 and creatinine 9.7. ASSESSMENT: This is a 76-year-old male with recent uncontrolled type 2 insulin-requiring diabetes with concomitant microvascular complications of diabetic retinopathy, polyneuropathy and nephropathy with end-stage renal disease and dialysis dependence. Moreover, he also has diabetic macrovascular complications of coronary artery disease with a recent coronary artery bypass graft surgery and also underlying peripheral arterial disease and vasculopathy. Plan of management as discussed with the patient and staff. We will continue the same low-dose physiologic basal and bolus insulin regimen as ordered to allow for dose equilibration and keep him on the Levemir given as 18 units subcu at bedtime daily as ordered. We will continue the Humalog given as 4 units subcu t.i.d. before meals as ordered. We will titrate incremental as indicated to optimize metabolic control. We will follow. Cindy Jacobs MD
[2017-05-08] MEDS: Insulin Lispro (humaLOG) 100 Units/ml Inj SC SCH ×7 (06:42→21:00)
[2017-05-08] MEDS: Pantoprazole 40 mg Susp UD PO SCH (09:04)
[2017-05-08] MEDS: Multivitamin With Minerals Tab PO SCH (09:04)
[2017-05-08] MEDS: levoFLOXacin 500 MG TAB PO SCH (09:06)
--- NOTE | 2017-05-08 11:59 | CP.PCM.PN ---
Subjective - Date & Time of Evaluation Date of Evaluation: 05/08/17 Time of Evaluation: 11:58 - Subjective Subjective: pt is seen and examined, follow up consult is dictated #[id number] Objective - Vital Signs/Intake and Output Vital Signs (last 24 hours): Temp Pulse Resp BP Pulse Ox 97.5 F L 74 20 105/46 L 97 05/08/17 10:00 05/08/17 10:00 05/08/17 10:00 05/08/17 10:00 05/08/17 10:00 - Medications Medications: Current Medications Amlodipine Besylate (Norvasc) 10 mg PO DAILY [facility] Last Admin: 05/08/17 09:04 Dose: 10 mg Atorvastatin Calcium (Lipitor) 40 mg PO [facility] Last Admin: 05/07/17 21:52 Dose: 40 mg Calcium Acetate (Phoslo) 667 mg PO BID [facility] Last Admin: 05/08/17 09:06 Dose: 667 mg Clopidogrel Bisulfate (Plavix) 75 mg PO DAILY [facility] Last Admin: 05/08/17 09:04 Dose: 75 mg Docusate Sodium (Colace Liquid) 100 mg PO BID [facility] Last Admin: 05/08/17 09:04 Dose: 100 mg Epoetin Prasanth (Procrit) 10,000 unit IV MWF@1600 [facility] Last Admin: 05/07/17 17:54 Dose: 10,000 unit Heparin Sodium (Porcine) (Heparin) 5,000 units SC Q8@0600,1400,2200 [facility] PRN Reason: Protocol Last Admin: 05/08/17 06:39 Dose: 5,000 units Insulin Detemir (Levemir) 18 units SC HS [facility] Last Admin: 05/07/17 21:56 Dose: 18 units Insulin Human Lispro (Humalog) 0 units SC ACHS [facility] PRN Reason: Protocol Last Admin: 05/08/17 11:55 Dose: Not Given Insulin Human Lispro (Humalog) 4 units SC AC [facility] Last Admin: 05/08/17 09:03 Dose: 4 unit Lactulose (Enulose) 20 gm PO DAILY [facility] PRN Reason: Constipation Last Admin: 05/04/17 17:07 Dose: 20 gm Levofloxacin (Levaquin) 500 mg PO DAILY [facility] PRN Reason: Protocol Last Admin: 05/08/17 09:06 Dose: 500 mg Metoprolol Tartrate (Lopressor) 25 mg PO Q12 [facility] Last Admin: 05/08/17 09:06 Dose: Not Given Multivitamins/Minerals (Therapeutic-M Tab) 1 tab PO DAILY [facility] Last Admin: 05/08/17 09:04 Dose: 1 tab Pantoprazole Sodium (Protonix Susp) 40 mg PO DAILY [facility] Last Admin: 05/08/17 09:04 Dose: 40 mg - Labs Labs: 05/05/17 05:55 05/05/17 05:55
[2017-05-08] MEDS ORDERED: Albuterol-Ipratrop 3 mg / 0.5 (3 ml) UD INH ONE (12:41)
[2017-05-08] MEDS: Lactobacillus Acidophilus 500 MU Cap PO SCH (17:18)
--- NOTE | 2017-05-08 18:11 | CP.PCM.PN ---
Subjective - Date & Time of Evaluation Date of Evaluation: 05/08/17 Time of Evaluation: 18:10 - Subjective Subjective: Patient seen on a follow up to check incision line CDI no erythema fran were removed yesterday no pain Objective - Vital Signs/Intake and Output Vital Signs (last 24 hours): Temp Pulse Resp BP Pulse Ox 97.5 F L 74 20 105/46 L 98 05/08/17 10:00 05/08/17 16:11 05/08/17 10:00 05/08/17 10:00 05/08/17 16:11 - Medications Medications: Current Medications Amlodipine Besylate (Norvasc) 10 mg PO DAILY [facility] Last Admin: 05/08/17 09:04 Dose: 10 mg Atorvastatin Calcium (Lipitor) 40 mg PO [facility] Last Admin: 05/07/17 21:52 Dose: 40 mg Calcium Acetate (Phoslo) 667 mg PO BID [facility] Last Admin: 05/08/17 17:19 Dose: 667 mg Clopidogrel Bisulfate (Plavix) 75 mg PO DAILY [facility] Last Admin: 05/08/17 09:04 Dose: 75 mg Docusate Sodium (Colace Liquid) 100 mg PO BID [facility] Last Admin: 05/08/17 17:19 Dose: 100 mg Epoetin Prasanth (Procrit) 10,000 unit IV MWF@1600 [facility] Last Admin: 05/07/17 17:54 Dose: 10,000 unit Heparin Sodium (Porcine) (Heparin) 5,000 units SC Q8@0600,1400,2200 [facility] PRN Reason: Protocol Last Admin: 05/08/17 13:08 Dose: 5,000 units Insulin Detemir (Levemir) 18 units SC [facility] Last Admin: 05/07/17 21:56 Dose: 18 units Insulin Human Lispro (Humalog) 0 units SC ACHS [facility] PRN Reason: Protocol Last Admin: 05/08/17 16:42 Dose: Not Given Insulin Human Lispro (Humalog) 4 units SC AC [facility] Last Admin: 05/08/17 17:18 Dose: 4 unit Lactobacillus Acidophilus (Bacid Acidophilus) 1 cap PO BID [facility] Last Admin: 05/08/17 17:18 Dose: 1 cap Lactulose (Enulose) 20 gm PO DAILY PRN PRN Reason: Constipation Last Admin: 05/04/17 17:07 Dose: 20 gm Levofloxacin (Levaquin) 500 mg PO DAILY [facility] PRN Reason: Protocol Last Admin: 05/08/17 09:06 Dose: 500 mg Metoprolol Tartrate (Lopressor) 25 mg PO Q12 [facility] Last Admin: 05/08/17 09:06 Dose: Not Given Multivitamins/Minerals (Therapeutic-M Tab) 1 tab PO DAILY [facility] Last Admin: 05/08/17 09:04 Dose: 1 tab Pantoprazole Sodium (Protonix Susp) 40 mg PO DAILY [facility] Last Admin: 05/08/17 09:04 Dose: 40 mg - Labs Labs: 05/05/17 05:55 05/05/17 05:55
[2017-05-08] MEDS: Insulin Detemir 100 Units/ml Inj SC SCH (22:05)
--- NOTE | 2017-05-09 01:22 | PN ---
DATE FOLLOWUP RENAL CONSULTATION LOCATION: The patient is located in room 623, bed 1. REQUESTED BY: Dr. Keila Colón. REASON FOR FOLLOWUP: End-stage renal disease, continuation of the hemodialysis. HISTORY OF PRESENT ILLNESS: Mr. Lee is an about 76 years old elderly very pleasant [place]ian male with a past medical history significant for long-standing hypertension, diabetes, hyperlipidemia, coronary artery disease, status post stents and pacemaker placement about a year ago, end-stage renal disease on hemodialysis 3 times a week - Friday, Friday and Friday, who was admitted to [facility] about 10 days ago with shortness of breath and chest pain, and found to have an elevated troponin. Subsequently, the patient underwent cardiac cath and found to have a multivessel disease, requiring bypass. Now, the patient was transferred to acute rehab for physical therapy. The patient underwent hemodialysis yesterday, not in any acute distress, tolerated very well. The patient was complaining of mild shortness of breath this morning, and the patient claims he is not compliant with the fluid intake. Denies any chest pain or palpitation. Denies any fever or cough. No abdominal pain. No nausea, vomiting, or diarrhea. PHYSICAL EXAMINATION: VITAL SIGNS: This morning are as follows: Blood pressure 105/46, pulse 74, respirations 20, temperature 97.5, saturation 97%. Height 5 feet 6 inches and weight is 172 pounds. 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 HEENT: Pupils are normal and reactive to light and accommodation. Conjunctivae are pink. Sclerae are anicteric. Tongue is moist. Trachea is midline. LUNGS: Symmetric on both sides. Bilateral breath sounds present. Bilateral basal crackles present. CARDIOVASCULAR SYSTEM: [place] at the 5th intercostal space, midclavicular line. S1, S2 audible. No murmur. No gallop. The patient has a midsternal scar present, healed very well. ABDOMEN: Normal in appearance, soft, tympanic. No guarding. No rigidity. No hepatosplenomegaly. CENTRAL NERVOUS SYSTEM: The patient is alert, awake, oriented x3. Nonfocal neuro examination. Cranial nerves II through XII grossly intact. Sensory and motor system is within normal limits. EXTREMITIES: No cyanosis. No clubbing. No edema. CURRENT MEDICATIONS: Include as follows: Bacid 1 capsule p.o. b.i.d., Colace 100 mg p.o. b.i.d., lactulose 20 g p.o. daily, subcu heparin 5000 units q. 8 hours, insulin lispro 4 units subcu a.c., Levaquin 500 mg p.o. daily, Levemir 18 units subcu at bedtime, Lipitor 40 mg p.o. at bedtime, Lopressor 25 mg p.o. q. 12 hours, amlodipine 10 mg daily, calcium acetate 667 mg p.o. b.i.d., Plavix 75 mg daily, Epogen 10,000 units 3 times a week, Protonix 40 mg p.o. daily, and multivitamin 1 tablet p.o. daily. LABORATORY DATA: No new labs are available. Accu-Cheks this morning 165 and 197. 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 1. End-stage renal disease. Continue hemodialysis 3 times a week - Friday, Friday, and Friday. 2. Hypertension. Blood pressure is stable. 3. Mild congestive heart failure, most likely secondary to noncompliance with the fluids and end-stage renal disease. 4. Status post coronary artery bypass graft. Continue physical therapy as per the rehab. PLAN: Restrict fluids to 1 liter per day, and we will try to ultrafiltrate as much as patient can tolerate with the dialysis on Friday. Discussed with the patient's nurse in rounds. Thank you for allowing me to participate in your patient's care. aTsha Rodrigues MD
[2017-05-09] MEDS: Insulin Lispro (humaLOG) 100 Units/ml Inj SC SCH ×7 (06:36→21:58)
[2017-05-09] MEDS: Lactobacillus Acidophilus 500 MU Cap PO SCH ×2 (08:28→17:06)
[2017-05-09] MEDS: Multivitamin With Minerals Tab PO SCH (08:28)
[2017-05-09] MEDS: Pantoprazole 40 mg Susp UD PO SCH (08:28)
[2017-05-09] MEDS: levoFLOXacin 500 MG TAB PO SCH (08:29)
--- NOTE | 2017-05-09 08:31 | PN ---
ENDOCRINOLOGY FOLLOWUP NOTE LOCATION: Room 623. SUBJECTIVE: This is a 76-year-old male with recent uncontrolled type 2 insulin-requiring diabetes, admitted to the Acute Rehab Unit for physical and occupational therapy and is now being followed closely for metabolic management. His glycemic levels are fluctuating, but much improved at this time and the latest glucose levels have ranged from 165-190 and 197 mg/dL. The latest chemistry showed a BUN of 70, sodium 132, potassium 5.8, chloride 88, CO2 of 27, glucose 166 and creatinine 9.7. So at this time, we will continue the same basal and bolus insulin regimen to allow for dose equilibration and keep him on the Humalog given as 4 units subcu t.i.d. before meals as ordered. We will continue the Levemir given as 18 units subcu at bedtime daily to start tonight. We will continue the same coverage scale using Humalog insulin as ordered to obviate hypoglycemia. We will follow with you. Cindy Jacobs MD
--- NOTE | 2017-05-09 11:35 | CP.PCM.PN ---
Subjective - Date & Time of Evaluation Date of Evaluation: 05/09/17 Time of Evaluation: 11:35 - Subjective Subjective: pt is seen and examined, follow up consult is dictated #[id number] for hd today, uf goal is 2-2.5 lit add nepro 1 can po qd Objective - Vital Signs/Intake and Output Vital Signs (last 24 hours): Temp Pulse Resp BP Pulse Ox 97.6 F 100 H 21 125/69 100 05/09/17 09:02 05/09/17 09:02 05/09/17 09:02 05/09/17 09:02 05/09/17 09:02 - Medications Medications: Current Medications Amlodipine Besylate (Norvasc) 10 mg PO DAILY [facility] Last Admin: 05/09/17 08:29 Dose: 10 mg Atorvastatin Calcium (Lipitor) 40 mg PO HS [facility] Last Admin: 05/08/17 21:00 Dose: 40 mg Calcium Acetate (Phoslo) 667 mg PO BID [facility] Last Admin: 05/09/17 08:28 Dose: 667 mg Clopidogrel Bisulfate (Plavix) 75 mg PO DAILY [facility] Last Admin: 05/09/17 08:28 Dose: 75 mg Docusate Sodium (Colace Liquid) 100 mg PO BID [facility] Last Admin: 05/09/17 08:28 Dose: 100 mg Epoetin Prasanth (Procrit) 10,000 unit IV MWF@1600 [facility] Last Admin: 05/07/17 17:54 Dose: 10,000 unit Heparin Sodium (Porcine) (Heparin) 5,000 units SC Q8@0600,1400,2200 [facility] PRN Reason: Protocol Last Admin: 05/09/17 06:38 Dose: 5,000 units Insulin Detemir (Levemir) 18 units SC HS [facility] Last Admin: 05/08/17 22:05 Dose: 18 units Insulin Human Lispro (Humalog) 0 units SC ACHS [facility] PRN Reason: Protocol Last Admin: 05/09/17 06:36 Dose: Not Given Insulin Human Lispro (Humalog) 4 units SC AC [facility] Last Admin: 05/09/17 08:27 Dose: 4 unit Lactobacillus Acidophilus (Bacid Acidophilus) 1 cap PO BID [facility] Last Admin: 05/09/17 08:28 Dose: 1 cap Lactulose (Enulose) 20 gm PO DAILY PRN PRN Reason: Constipation Last Admin: 05/04/17 17:07 Dose: 20 gm Levofloxacin (Levaquin) 500 mg PO DAILY [facility] PRN Reason: Protocol Last Admin: 05/09/17 08:29 Dose: 500 mg Metoprolol Tartrate (Lopressor) 25 mg PO Q12 [facility] Last Admin: 05/09/17 08:30 Dose: 25 mg Multivitamins/Minerals (Therapeutic-M Tab) 1 tab PO DAILY [facility] Last Admin: 05/09/17 08:28 Dose: 1 tab Pantoprazole Sodium (Protonix Susp) 40 mg PO DAILY [facility] Last Admin: 05/09/17 08:28 Dose: 40 mg - Labs Labs: 05/05/17 05:55 05/05/17 05:55
--- NOTE | 2017-05-09 14:01 | CP.PCM.CON ---
History of Present Illness - History of Present Illness History of Present Illness: Pt seen for sup therapy 12:50-1:10. Pt discussed desire for increased strength with reduced fatigue. Pt spoke of gains made, ambulation and comfort with care. Pt discussed optimism, strategies reviewed to decrease depression, anxiety. Pt spoke of sleep issues, nursing to be consulted to evaluate. plan: Continued Sup therapy Past Patient History - Past Medical History & Family History Past Medical History?: Yes - Past Social History Smoking Status: Never Smoked Chewing Tobacco Use: No Cigar Use: No Alcohol: None Drugs: Denies Home Situation {Lives}: With Family - CARDIAC Hx Cardiac Disorders: Yes Hx Atrial Fibrillation: Yes Hx Hypertension: Yes Hx Pacemaker: Yes - PULMONARY Hx Respiratory Disorders: No - NEUROLOGICAL Hx Neurological Disorder: No - HEENT Hx HEENT Problems: No - RENAL Hx Chronic Kidney Disease: Yes Hx Dialysis: Yes Date of Last Dialysis Treatment: 04/30/17 ([facility]) - ENDOCRINE/METABOLIC Hx Diabetes Mellitus Type 1: Yes (??) - HEMATOLOGICAL/ONCOLOGICAL Hx Anemia: Yes - INTEGUMENTARY Hx Dermatological Problems: No - MUSCULOSKELETAL/RHEUMATOLOGICAL Hx Musculoskeletal Disorders: No - PSYCHIATRIC Hx Substance Use: No - SURGICAL HISTORY Hx Surgeries: Yes Hx Cardiac Catheterization: Yes Hx Coronary Artery Bypass Graft: Yes Other/Comment: CABG/PPM - ANESTHESIA Hx Anesthesia: Yes Hx Anesthesia Reactions: No Meds Allergies/Adverse Reactions: Allergies Allergy/AdvReac Type Severity Reaction Status Date / Time aspirin Allergy Intermediate .HIVES Verified 05/01/17 20:29 shellfish derived Allergy Intermediate .HIVES Verified 05/01/17 20:29 - Medications Medications: Current Medications Amlodipine Besylate (Norvasc) 10 mg PO DAILY [facility] Last Admin: 05/09/17 08:29 Dose: 10 mg Atorvastatin Calcium (Lipitor) 40 mg PO [facility] Last Admin: 05/08/17 21:00 Dose: 40 mg Calcium Acetate (Phoslo) 667 mg PO BID [facility] Last Admin: 05/09/17 08:28 Dose: 667 mg Clopidogrel Bisulfate (Plavix) 75 mg PO DAILY [facility] Last Admin: 05/09/17 08:28 Dose: 75 mg Docusate Sodium (Colace Liquid) 100 mg PO BID [facility] Last Admin: 05/09/17 08:28 Dose: 100 mg Epoetin Prasanth (Procrit) 10,000 unit IV MWF@1600 [facility] Last Admin: 05/07/17 17:54 Dose: 10,000 unit Heparin Sodium (Porcine) (Heparin) 5,000 units SC Q8@0600,1400,2200 [facility] PRN Reason: Protocol Last Admin: 05/09/17 13:22 Dose: 5,000 units Insulin Detemir (Levemir) 18 units SC HS [facility] Last Admin: 05/08/17 22:05 Dose: 18 units Insulin Human Lispro (Humalog) 0 units SC ACHS [facility] PRN Reason: Protocol Last Admin: 05/09/17 12:24 Dose: Not Given Insulin Human Lispro (Humalog) 4 units SC AC [facility] Last Admin: 05/09/17 12:25 Dose: 4 unit Lactobacillus Acidophilus (Bacid Acidophilus) 1 cap PO BID [facility] Last Admin: 05/09/17 08:28 Dose: 1 cap Lactulose (Enulose) 20 gm PO DAILY PRN PRN Reason: Constipation Last Admin: 05/04/17 17:07 Dose: 20 gm Levofloxacin (Levaquin) 500 mg PO DAILY [facility] PRN Reason: Protocol Last Admin: 05/09/17 08:29 Dose: 500 mg Metoprolol Tartrate (Lopressor) 25 mg PO Q12 [facility] Last Admin: 05/09/17 08:30 Dose: 25 mg Multivitamins/Minerals (Therapeutic-M Tab) 1 tab PO DAILY [facility] Last Admin: 05/09/17 08:28 Dose: 1 tab Pantoprazole Sodium (Protonix Susp) 40 mg PO DAILY [facility] Last Admin: 05/09/17 08:28 Dose: 40 mg Results - Vital Signs Recent Vital Signs: Last Vital Signs Temp 97.6 F 05/09/17 09:02 Pulse 100 H 05/09/17 09:02 Resp 21 05/09/17 09:02 BP 125/69 05/09/17 09:02 Pulse Ox 100 05/09/17 09:02 - Labs Result Diagrams: 05/05/17 05:55 05/05/17 05:55 Labs: Laboratory Results - last 24 hr 05/08/17 05/08/17 05/09/17 15:49 20:31 06:36 POC Glucose (mg/dL) 128 H 100 103 05/09/17 05/09/17 12:04 12:12 POC Glucose (mg/dL) 148 H 130 H
--- NOTE | 2017-05-09 14:50 | CP.PCM.PN ---
Subjective - Date & Time of Evaluation Date of Evaluation: 05/09/17 Time of Evaluation: 10:30 - Subjective Subjective: no acu8te complaints at present Objective - Vital Signs/Intake and Output Vital Signs (last 24 hours): Temp Pulse Resp BP Pulse Ox 97.6 F 100 H 21 125/69 100 05/09/17 09:02 05/09/17 09:02 05/09/17 09:02 05/09/17 09:02 05/09/17 09:02 - Medications Medications: Current Medications Amlodipine Besylate (Norvasc) 10 mg PO DAILY [facility] Last Admin: 05/09/17 08:29 Dose: 10 mg Atorvastatin Calcium (Lipitor) 40 mg PO HS [facility] Last Admin: 05/08/17 21:00 Dose: 40 mg Calcium Acetate (Phoslo) 667 mg PO BID [facility] Last Admin: 05/09/17 08:28 Dose: 667 mg Clopidogrel Bisulfate (Plavix) 75 mg PO DAILY [facility] Last Admin: 05/09/17 08:28 Dose: 75 mg Docusate Sodium (Colace Liquid) 100 mg PO BID [facility] Last Admin: 05/09/17 08:28 Dose: 100 mg Epoetin Prasanth (Procrit) 10,000 unit IV MWF@1600 [facility] Last Admin: 05/07/17 17:54 Dose: 10,000 unit Heparin Sodium (Porcine) (Heparin) 5,000 units SC Q8@0600,1400,2200 [facility] PRN Reason: Protocol Last Admin: 05/09/17 13:22 Dose: 5,000 units Insulin Detemir (Levemir) 18 units SC HS [facility] Last Admin: 05/08/17 22:05 Dose: 18 units Insulin Human Lispro (Humalog) 0 units SC ACHS [facility] PRN Reason: Protocol Last Admin: 05/09/17 12:24 Dose: Not Given Insulin Human Lispro (Humalog) 4 units SC AC [facility] Last Admin: 05/09/17 12:25 Dose: 4 unit Lactobacillus Acidophilus (Bacid Acidophilus) 1 cap PO BID [facility] Last Admin: 05/09/17 08:28 Dose: 1 cap Lactulose (Enulose) 20 gm PO DAILY PRN PRN Reason: Constipation Last Admin: 05/04/17 17:07 Dose: 20 gm Levofloxacin (Levaquin) 500 mg PO DAILY [facility] PRN Reason: Protocol Last Admin: 05/09/17 08:29 Dose: 500 mg Metoprolol Tartrate (Lopressor) 25 mg PO Q12 [facility] Last Admin: 05/09/17 08:30 Dose: 25 mg Multivitamins/Minerals (Therapeutic-M Tab) 1 tab PO DAILY [facility] Last Admin: 05/09/17 08:28 Dose: 1 tab Pantoprazole Sodium (Protonix Susp) 40 mg PO DAILY [facility] Last Admin: 05/09/17 08:28 Dose: 40 mg - Labs Labs: 05/05/17 05:55 05/05/17 05:55 - Head Exam Head Exam: ATRAUMATIC, NORMAL INSPECTION, NORMOCEPHALIC - Eye Exam Eye Exam: EOMI, Normal appearance, PERRL Pupil Exam: NORMAL ACCOMODATION, PERRL - ENT Exam ENT Exam: Mucous Membranes Moist, Normal Exam - Neck Exam Neck Exam: Normal Inspection - Respiratory Exam Respiratory Exam: NORMAL BREATHING PATTERN - Cardiovascular Exam Cardiovascular Exam: REGULAR RHYTHM - GI/Abdominal Exam GI & Abdominal Exam: Soft, Normal Bowel Sounds - Rectal Exam Rectal Exam: NORMAL INSPECTION - Exam External exam: NORMAL EXTERNAL EXAM - Extremities Exam Extremities Exam: Full ROM, Normal Capillary Refill - Back Exam Back Exam: NORMAL INSPECTION - Neurological Exam Neurological Exam: Alert, Awake Neuro motor strength exam: Left Upper Extremity: 3, Right Upper Extremity: 3, Left Lower Extremity: 3, Right Lower Extremity: 3 - Psychiatric Exam Psychiatric exam: Normal Affect, Normal Mood - Skin Skin Exam: Dry, Intact Assessment and Plan (1) S/P CABG (coronary artery bypass graft) Assessment & Plan: p0lan for physical, occuaptional, rec and speech therapy Status: Acute
--- NOTE | 2017-05-09 14:52 | CP.PCM.PN ---
Subjective - Date & Time of Evaluation Date of Evaluation: 05/08/17 Time of Evaluation: 21:00 - Subjective Subjective: no acute complaints at present Objective - Vital Signs/Intake and Output Vital Signs (last 24 hours): Temp Pulse Resp BP Pulse Ox 97.6 F 100 H 21 125/69 100 05/09/17 09:02 05/09/17 09:02 05/09/17 09:02 05/09/17 09:02 05/09/17 09:02 - Medications Medications: Current Medications Amlodipine Besylate (Norvasc) 10 mg PO DAILY [facility] Last Admin: 05/09/17 08:29 Dose: 10 mg Atorvastatin Calcium (Lipitor) 40 mg PO HS [facility] Last Admin: 05/08/17 21:00 Dose: 40 mg Calcium Acetate (Phoslo) 667 mg PO BID [facility] Last Admin: 05/09/17 08:28 Dose: 667 mg Clopidogrel Bisulfate (Plavix) 75 mg PO DAILY [facility] Last Admin: 05/09/17 08:28 Dose: 75 mg Docusate Sodium (Colace Liquid) 100 mg PO BID [facility] Last Admin: 05/09/17 08:28 Dose: 100 mg Epoetin Prasanth (Procrit) 10,000 unit IV MWF@1600 [facility] Last Admin: 05/07/17 17:54 Dose: 10,000 unit Heparin Sodium (Porcine) (Heparin) 5,000 units SC Q8@0600,1400,2200 [facility] PRN Reason: Protocol Last Admin: 05/09/17 13:22 Dose: 5,000 units Insulin Detemir (Levemir) 18 units SC HS [facility] Last Admin: 05/08/17 22:05 Dose: 18 units Insulin Human Lispro (Humalog) 0 units SC ACHS [facility] PRN Reason: Protocol Last Admin: 05/09/17 12:24 Dose: Not Given Insulin Human Lispro (Humalog) 4 units SC AC [facility] Last Admin: 05/09/17 12:25 Dose: 4 unit Lactobacillus Acidophilus (Bacid Acidophilus) 1 cap PO BID [facility] Last Admin: 05/09/17 08:28 Dose: 1 cap Lactulose (Enulose) 20 gm PO DAILY PRN PRN Reason: Constipation Last Admin: 05/04/17 17:07 Dose: 20 gm Levofloxacin (Levaquin) 500 mg PO DAILY [facility] PRN Reason: Protocol Last Admin: 05/09/17 08:29 Dose: 500 mg Metoprolol Tartrate (Lopressor) 25 mg PO Q12 [facility] Last Admin: 05/09/17 08:30 Dose: 25 mg Multivitamins/Minerals (Therapeutic-M Tab) 1 tab PO DAILY [facility] Last Admin: 05/09/17 08:28 Dose: 1 tab Pantoprazole Sodium (Protonix Susp) 40 mg PO DAILY [facility] Last Admin: 05/09/17 08:28 Dose: 40 mg - Labs Labs: 05/05/17 05:55 05/05/17 05:55 - Head Exam Head Exam: ATRAUMATIC, NORMAL INSPECTION, NORMOCEPHALIC - Eye Exam Eye Exam: EOMI, Normal appearance, PERRL Pupil Exam: NORMAL ACCOMODATION - ENT Exam ENT Exam: Mucous Membranes Moist, Normal Exam - Neck Exam Neck Exam: Normal Inspection - Respiratory Exam Respiratory Exam: NORMAL BREATHING PATTERN - Cardiovascular Exam Cardiovascular Exam: REGULAR RHYTHM - GI/Abdominal Exam GI & Abdominal Exam: Soft, Normal Bowel Sounds - Rectal Exam Rectal Exam: NORMAL INSPECTION - Exam External exam: NORMAL EXTERNAL EXAM - Extremities Exam Extremities Exam: Normal Capillary Refill, Normal Inspection - Back Exam Back Exam: NORMAL INSPECTION - Neurological Exam Neurological Exam: Alert, Awake Neuro motor strength exam: Left Upper Extremity: 3, Right Upper Extremity: 3, Left Lower Extremity: 3, Right Lower Extremity: 3 - Psychiatric Exam Psychiatric exam: Normal Affect, Normal Mood - Skin Skin Exam: Dry, Intact, Normal Color Assessment and Plan (1) S/P CABG (coronary artery bypass graft) Status: Acute
--- NOTE | 2017-05-09 17:23 | PN ---
ENDOCRINOLOGY FOLLOWUP NOTE LOCATION: In the room #623. This is a 76-year-old male with recent uncontrolled type 2 insulin-requiring diabetes, now with improved glycemic profile after the initiation of a basal and bolus insulin drug combination as given. He is undergoing acute rehabilitation therapy following a recent coronary artery bypass graft surgery as given and undertaken. His glucose values have ranged from 103-130 and 148 mg/dL. The latest chemistry showed a BUN of 70, sodium 132, potassium 5.8, chloride 88, CO2 of 166 and creatinine 9.7. So at this time, we will continue the same basal and bolus insulin regimen with Levemir given as 18 units subcu at bedtime daily as ordered. We will continue the Humalog given as 4 units subcu t.i.d. before meals as ordered. We will titrate incremental as indicated to optimize metabolic control. We will follow. Cindy Jacobs MD
--- NOTE | 2017-05-09 17:57 | CP.PCM.PN ---
Subjective - Date & Time of Evaluation Date of Evaluation: 05/09/17 Time of Evaluation: 13:00 - Subjective Subjective: Patient was seen today and examined at bedside. He is resting comfortably. Participating with therapy. Complains of feeling chronically tired but has no other complaints. Denies chest pain, sob. Hemodynamically stable. Hemodialysis today. Objective - Vital Signs/Intake and Output Vital Signs (last 24 hours): Temp Pulse Resp BP Pulse Ox 97.6 F 68 21 128/58 L 98 05/09/17 09:02 05/09/17 10:46 05/09/17 09:02 05/09/17 10:46 05/09/17 10:46 - Medications Medications: Current Medications Amlodipine Besylate (Norvasc) 10 mg PO DAILY [facility] Last Admin: 05/09/17 08:29 Dose: 10 mg Atorvastatin Calcium (Lipitor) 40 mg PO HS [facility] Last Admin: 05/08/17 21:00 Dose: 40 mg Calcium Acetate (Phoslo) 667 mg PO BID [facility] Last Admin: 05/09/17 17:06 Dose: 667 mg Clopidogrel Bisulfate (Plavix) 75 mg PO DAILY [facility] Last Admin: 05/09/17 08:28 Dose: 75 mg Docusate Sodium (Colace Liquid) 100 mg PO BID [facility] Last Admin: 05/09/17 17:06 Dose: 100 mg Epoetin Prasanth (Procrit) 10,000 unit IV MWF@1600 [facility] Last Admin: 05/07/17 17:54 Dose: 10,000 unit Heparin Sodium (Porcine) (Heparin) 5,000 units SC Q8@0600,1400,2200 [facility] PRN Reason: Protocol Last Admin: 05/09/17 13:22 Dose: 5,000 units Insulin Detemir (Levemir) 18 units SC HS [facility] Last Admin: 05/08/17 22:05 Dose: 18 units Insulin Human Lispro (Humalog) 0 units SC ACHS [facility] PRN Reason: Protocol Last Admin: 05/09/17 16:55 Dose: Not Given Insulin Human Lispro (Humalog) 4 units SC AC [facility] Last Admin: 05/09/17 17:06 Dose: 4 unit Lactobacillus Acidophilus (Bacid Acidophilus) 1 cap PO BID [facility] Last Admin: 05/09/17 17:06 Dose: 1 cap Lactulose (Enulose) 20 gm PO DAILY [facility] PRN Reason: Constipation Last Admin: 05/04/17 17:07 Dose: 20 gm Levofloxacin (Levaquin) 500 mg PO DAILY [facility] PRN Reason: Protocol Last Admin: 05/09/17 08:29 Dose: 500 mg Metoprolol Tartrate (Lopressor) 25 mg PO Q12 [facility] Last Admin: 05/09/17 08:30 Dose: 25 mg Multivitamins/Minerals (Therapeutic-M Tab) 1 tab PO DAILY [facility] Last Admin: 05/09/17 08:28 Dose: 1 tab Pantoprazole Sodium (Protonix Susp) 40 mg PO DAILY [facility] Last Admin: 05/09/17 08:28 Dose: 40 mg - Labs Labs: 05/05/17 05:55 05/05/17 05:55 - Additional Findings Additional findings: Physical exam: Constitutional- cooperative, awake, alert. Head- NCAT, PERRL Eye- PERRL, normal accommodation ENT- normal exam, MMM. Neck- normal inspection, supple, no JVD Respiratory- mild rales in left base, no wheezes or rhonchi Cardiovascular- RRR, +S1, +S2 no MRG GI/Abdominal- normal bowel sounds, soft, no mass, no hsm Skin- warm, dry Extremities Exam- normal capillary refill, normal inspection Neurological Exam- alert. Stable gait. Psych- normal mood, normal affect Assessment and Plan - Assessment and Plan (Free Text) Plan: Assessment: 76 years transferred to acute s/p NSTEMI and CABG [place] [facility] .He has PMH significant for ESRD on HD MWF, DM2, CAD s/p stents in the past. Patient is stable , participating with PT. 1. NSTEMI s/p CABG continue Cardiac Rehab Mender Hand consult with Dr. Claudio appreciated Cont Lipitor,Plavix, Metoprolol follow up with cardiothoracic surgeon Dr. Peters 2. ESRD on HD MWF Consult Dr Rodrigues nephrology continue HD as scheduled - 3. Anemia of chronic Kidney disease Epogen at dialysis 4. DM insulin requiring Dr Jacobs endocrinology on consult Levemir 18 units HSW and Aaspart 4 units SQ AC Aspart sliding scale 5. A Fib/ A flutter/SSS rate controlled Not to restart Therapeytic Anticoagulant as yet as per Cardio thoracic Surgery 6. HTN on norvasc and Metoprolol controlled 7. LLL infiltrate Likely cause of SOB along with pleural effusion Continue Levaquin 500 mg po daily for 4 more days 7.Constipation on colace and lactulose 8. GI PPx Pantoprazole 9.DVT PPx heparin [facility]
[2017-05-09] MEDS: Insulin Detemir 100 Units/ml Inj SC SCH (21:56)
[2017-05-09] MEDS: EPOETIN ALFA 10,000 UNIT/ML ML IV SCH (22:43)
--- NOTE | 2017-05-10 04:11 | PN ---
FOLLOWUP RENAL CONSULTATION DATE: 05/09/2017 LOCATION: The patient is in room #623, bed 1. REQUESTED BY: Keila Colón DO REASON FOR FOLLOWUP: Endstage renal disease, for continuation of hemodialysis. HISTORY OF PRESENT ILLNESS: Mr. 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 Now, the patient was transferred to acute rehab for continuation of physical therapy. The patient is complaining of feeling weak and tired. No chest pain. Mild shortness of breath. No nausea. No vomiting. No diarrhea. No abdominal pain. No fever. No cough. PHYSICAL EXAMINATION: VITAL SIGNS: As follows: Blood pressure this morning 125/69, pulse 100, respirations 21, temperature 97.6, saturation 100%, height 5 feet 6 inches, and weight is 172 pounds. GENERAL: Mr. Lee is a 76-year-old elderly [place] male, moderately built, moderately nourished, not in any acute distress. HEENT: Pupils are normal and reactive to light and accommodation. Conjunctivae are pink. Sclerae are anicteric. Tongue is moist. Trachea is midline. LUNGS: Symmetric on both sides. Bilateral breath sounds present. Occasional basilar crackles present. CARDIOVASCULAR SYSTEM: [place] at the fifth intercostal space, midclavicular line. S1 and S2 audible. No murmur or gallop. ABDOMEN: Normal in appearance. Soft, tympanic. No guarding. No rigidity. No hepatosplenomegaly. Mid sternal scar is healing well. CENTRAL NERVOUS SYSTEM: The patient is alert, awake, and oriented x3. Nonfocal neuro examination. Cranial nerves II through XII are grossly intact. Sensorimotor system is within normal limits. EXTREMITIES: No cyanosis, no clubbing, no edema. CURRENT MEDICATIONS: Include as follows: Lactobacillus one capsule p.o. b.i.d., Colace 100 mg p.o. b.i.d., lactulose 20 grams p.o. daily, subcutaneous heparin 5000 units q. 8 hours, Humalog 4 units subcutaneous before meals, and Levaquin 500 mg p.o. daily, Levemir 18 units subcutaneously at bedtime, Lipitor 40 mg daily, metoprolol 25 mg p.o. q. 12 hours, amlodipine 10 mg daily, PhosLo 667 mg p.o. b.i.d., Plavix 75 mg daily, Procrit 10,000 units three times a week, Protonix 40 mg p.o. daily, multivitamin one tablet p.o. daily, and Accu-Chek 103, 130. 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 1. Endstage renal disease, continue hemodialysis three times a week on Friday, Friday, and Friday. 2. Hypertension, blood pressure stable. 3. Mild congestive heart failure. 4. Status post coronary artery bypass grafting. 5. Diabetes. Sugars are under control. Continue hemodialysis three times a week. Restrict fluids to 1 liter per day and low-sodium, low-potassium diet. 6. Continue physical therapy. Also, we will add Nepro one can p.o. daily. We will follow with you. UF goal is 2 to 2.5 liters as tolerated. Thank you for allowing me to participate in your patient's care. Tasha Rodrigues MD
[2017-05-10] MEDS: Insulin Lispro (humaLOG) 100 Units/ml Inj SC SCH ×7 (06:52→21:44)
[2017-05-10] MEDS: Multivitamin With Minerals Tab PO SCH (08:42)
[2017-05-10] MEDS: levoFLOXacin 500 MG TAB PO SCH (08:42)
[2017-05-10] MEDS: Lactobacillus Acidophilus 500 MU Cap PO SCH ×2 (08:42→17:17)
[2017-05-10] MEDS: Pantoprazole 40 mg Susp UD PO SCH (08:43)
--- NOTE | 2017-05-10 10:04 | CP.PCM.PN ---
Subjective - Date & Time of Evaluation Date of Evaluation: 05/10/17 Time of Evaluation: 10:04 - Subjective Subjective: Patient seen in PT ambulating on practice steps. better strength and function today had an off day yesterday. denies sob/cp no sternal pain Objective - Vital Signs/Intake and Output Vital Signs (last 24 hours): Temp Pulse Resp BP Pulse Ox 97.3 F L 70 20 107/53 L 97 05/10/17 07:48 05/10/17 08:43 05/10/17 07:48 05/10/17 08:43 05/10/17 07:48 - Medications Medications: Current Medications Amlodipine Besylate (Norvasc) 10 mg PO DAILY [facility] Last Admin: 05/10/17 08:43 Dose: 10 mg Atorvastatin Calcium (Lipitor) 40 mg PO [facility] Last Admin: 05/09/17 21:51 Dose: 40 mg Calcium Acetate (Phoslo) 667 mg PO BID [facility] Last Admin: 05/10/17 08:42 Dose: 667 mg Clopidogrel Bisulfate (Plavix) 75 mg PO DAILY [facility] Last Admin: 05/10/17 08:42 Dose: 75 mg Docusate Sodium (Colace Liquid) 100 mg PO BID [facility] Last Admin: 05/10/17 08:42 Dose: 100 mg Epoetin Prasanth (Procrit) 10,000 unit IV MWF@1600 [facility] Last Admin: 05/09/17 22:43 Dose: 10,000 unit Heparin Sodium (Porcine) (Heparin) 5,000 units SC Q8@0600,1400,2200 [facility] PRN Reason: Protocol Last Admin: 05/10/17 06:46 Dose: 5,000 units Insulin Detemir (Levemir) 18 units SC HS [facility] Last Admin: 05/09/17 21:56 Dose: 18 units Insulin Human Lispro (Humalog) 0 units SC ACHS [facility] PRN Reason: Protocol Last Admin: 05/10/17 06:52 Dose: Not Given Insulin Human Lispro (Humalog) 4 units SC AC [facility] Last Admin: 05/10/17 08:40 Dose: 4 unit Lactobacillus Acidophilus (Bacid Acidophilus) 1 cap PO BID [facility] Last Admin: 05/10/17 08:42 Dose: 1 cap Lactulose (Enulose) 20 gm PO DAILY [facility] PRN Reason: Constipation Last Admin: 05/04/17 17:07 Dose: 20 gm Levofloxacin (Levaquin) 500 mg PO DAILY [facility] PRN Reason: Protocol Last Admin: 05/10/17 08:42 Dose: 500 mg Metoprolol Tartrate (Lopressor) 25 mg PO Q12 [facility] Last Admin: 05/10/17 08:43 Dose: Not Given Multivitamins/Minerals (Therapeutic-M Tab) 1 tab PO DAILY [facility] Last Admin: 05/10/17 08:42 Dose: 1 tab Pantoprazole Sodium (Protonix Susp) 40 mg PO DAILY [facility] Last Admin: 05/10/17 08:43 Dose: 40 mg - Labs Labs: 05/05/17 05:55 05/05/17 05:55
--- NOTE | 2017-05-10 15:18 | PN ---
DATE: LOCATION: In room 623. SUBJECTIVE: This is a 76-year-old male with recent uncontrolled type 2 insulin-requiring diabetes, now undergoing acute rehabilitation therapy following a recent coronary artery bypass graft surgery as noted. His glucose values are much improved at this time and have ranged from 105 to 135 and 146 mg/dL. His latest chemistries showed a BUN of 70, sodium 132, potassium 5.8, chloride 88, CO2 of 27, glucose 166 and creatinine 9.7. ASSESSMENT AND PLAN: So at this time, we will continue the modified basal and bolus insulin regimen to allow for dose equilibration and keep him on the Levemir given as 18 units subcu at bedtime daily as ordered. We will continue the Humalog given as 4 units subcu t.i.d. before meals as given. We will titrate incrementally as indicated to optimize metabolic control. We will we will follow and advise accordingly. Cindy Jacobs MD
[2017-05-10] MEDS: Insulin Detemir 100 Units/ml Inj SC SCH (21:55)
[2017-05-11] MEDS: Insulin Lispro (humaLOG) 100 Units/ml Inj SC SCH ×7 (07:13→21:38)
[2017-05-11 07:50] LABS: BASO % 0.6 % (0.0-2.0); EOS # 0.1 K/uL (0.0-0.7); EOS % 0.8 % (0.0-4.0); LYMPH # 1.2 K/uL (1.0-4.3); MEAN CELL VOLUME 93.8 fl (80.0-94.0); MEAN PLATELET VOLUME 7.2 fl (7.2-11.7); MONO # 1.1 K/uL (0.0-0.8); MONO % 14.2 % (0.0-10.0); NEUT # 5.2 K/uL (1.8-7.0); NEUT % 68.4 % (50.0-75.0); RBC 3.67 Mil/uL (4.40-5.90); RED CELL DISTRIBUTION WIDTH 18.3 % (11.5-14.5); WHITE BLOOD COUNT 7.7 K/uL (4.8-10.8)
[2017-05-11] MEDS: Multivitamin With Minerals Tab PO SCH (08:14)
[2017-05-11] MEDS: Pantoprazole 40 mg EC Tab PO SCH (08:14)
[2017-05-11] MEDS: Lactobacillus Acidophilus 500 MU Cap PO SCH ×2 (08:15→16:51)
[2017-05-11] MEDS: levoFLOXacin 500 MG TAB PO SCH (08:15)
[2017-05-11 08:55] LABS: ALBUMIN 3.7 g/dL (3.5-5.0); CALCIUM 9.1 mg/dL (8.4-10.2)
--- NOTE | 2017-05-11 15:18 | PN ---
DATE: ENDOCRINOLOGY FOLLOWUP NOTE LOCATION: 623. SUBJECTIVE: This is a 76-year-old male with recent uncontrolled type 2 insulin-requiring diabetes, presenting here for acute rehabilitation therapy following a coronary artery bypass graft surgery undertaken at the [facility] and is now being followed closely for metabolic management. His glycemic levels are fluctuating but improved and the latest glucose values have ranged from 145-153 mg/dL. The latest chemistry showed a BUN of 49, sodium 133, potassium 4.8, chloride 88, CO2 of 32, glucose 144, and creatinine 8.4. So, at this time, we will continue the same basal and bolus insulin regimen to allow for dose equilibration and keep him on the Levemir given as 18 units subcu at bedtime daily with Humalog given as 4 units subcu t.i.d. before meals as given. We will titrate incrementally as indicated to optimize metabolic control. We will follow and advise accordingly. Cindy Jacobs MD
[2017-05-11] MEDS: Insulin Detemir 100 Units/ml Inj SC SCH (22:14)
[2017-05-12] MEDS: Insulin Lispro (humaLOG) 100 Units/ml Inj SC SCH ×7 (06:30→21:32)
[2017-05-12] MEDS: Pantoprazole 40 mg EC Tab PO SCH (08:35)
[2017-05-12] MEDS: Multivitamin With Minerals Tab PO SCH (08:35)
[2017-05-12] MEDS: levoFLOXacin 500 MG TAB PO SCH (08:36)
[2017-05-12] MEDS: Lactobacillus Acidophilus 500 MU Cap PO SCH ×2 (08:40→17:59)
[2017-05-12] MEDS: EPOETIN ALFA 10,000 UNIT/ML ML IV SCH ×2 (10:16→17:57)
--- NOTE | 2017-05-12 11:31 | CP.PCM.PN ---
Subjective - Date & Time of Evaluation Date of Evaluation: 05/12/17 Time of Evaluation: 10:15 - Subjective Subjective: Patient seen and examined at bedside, currently having dialysis. Last night the patient had an episode of chest discomfort, EKG showing no acute findings. Troponin was elevated at 0.22, however repeat similar. Patient had no episodes of chest pain since. Patient hemodynamically stable at this time and afebrile. Denies any shortness of breath. Objective - Vital Signs/Intake and Output Vital Signs (last 24 hours): Temp Pulse Resp BP Pulse Ox 97.0 F L 84 20 135/49 L 95 05/12/17 07:39 05/12/17 08:36 05/12/17 07:39 05/12/17 08:36 05/12/17 07:39 - Medications Medications: Current Medications Amlodipine Besylate (Norvasc) 10 mg PO DAILY [facility] Last Admin: 05/12/17 08:35 Dose: 10 mg Atorvastatin Calcium (Lipitor) 40 mg PO HS [facility] Last Admin: 05/11/17 21:49 Dose: 40 mg Calcium Acetate (Phoslo) 667 mg PO BID [facility] Last Admin: 05/12/17 08:34 Dose: 667 mg Clopidogrel Bisulfate (Plavix) 75 mg PO DAILY [facility] Last Admin: 05/12/17 08:34 Dose: 75 mg Docusate Sodium (Colace) 100 mg PO BID [facility] Last Admin: 05/12/17 08:40 Dose: 100 mg Epoetin Prasanth (Procrit) 10,000 unit IV MWF@1600 [facility] Last Admin: 05/12/17 10:16 Dose: 10,000 unit Heparin Sodium (Porcine) (Heparin) 5,000 units SC Q8@0600,1400,2200 [facility] PRN Reason: Protocol Last Admin: 05/12/17 05:54 Dose: 5,000 units Insulin Detemir (Levemir) 18 units SC HS [facility] Last Admin: 05/11/17 22:14 Dose: 18 units Insulin Human Lispro (Humalog) 0 units SC ACHS [facility] PRN Reason: Protocol Last Admin: 05/12/17 06:30 Dose: Not Given Insulin Human Lispro (Humalog) 4 units SC AC [facility] Last Admin: 05/12/17 08:37 Dose: 4 unit Lactobacillus Acidophilus (Bacid Acidophilus) 1 cap PO BID [facility] Last Admin: 05/12/17 08:40 Dose: 1 cap Lactulose (Enulose) 20 gm PO DAILY [facility] PRN Reason: Constipation Last Admin: 05/04/17 17:07 Dose: 20 gm Levofloxacin (Levaquin) 500 mg PO DAILY [facility] PRN Reason: Protocol Last Admin: 05/12/17 08:36 Dose: 500 mg Metoprolol Tartrate (Lopressor) 25 mg PO Q12 [facility] Last Admin: 05/12/17 08:36 Dose: 25 mg Multivitamins/Minerals (Therapeutic-M Tab) 1 tab PO DAILY [facility] Last Admin: 05/12/17 08:35 Dose: 1 tab Pantoprazole Sodium (Protonix Ec Tab) 40 mg PO DAILY [facility] Last Admin: 05/12/17 08:35 Dose: 40 mg - Labs Labs: 05/11/17 05:30 05/11/17 05:30 - Additional Findings Additional findings: Physical exam: Constitutional- cooperative, awake, alert. Head- NCAT, PERRL Eye- PERRL, normal accommodation ENT- normal exam, MMM. Neck- normal inspection, supple, no JVD Respiratory- mild rales in left base, no wheezes or rhonchi Cardiovascular- RRR, +S1, +S2 no MRG GI/Abdominal- normal bowel sounds, soft, no mass, no hsm Skin- warm, dry. Having dialysis w/ AV fistula in left arm. Extremities Exam- normal capillary refill, normal inspection Neurological Exam- alert. Stable gait. Psych- normal mood, normal affect Assessment and Plan - Assessment and Plan (Free Text) Plan: Assessment: 76 years transferred to [place] s/[place] [facility] .He has PMH significant for ESRD on HD MWF, DM2, CAD s/p stents in the past. Patient is stable , participating with PT. 1. NSTEMI s/p CABG, episode of cp today, now resolved Troponins minimally elevated- likely due to ESRD, stable. 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 Claudio appreciated Cont Lipitor,Plavix, Metoprolol follow up with cardiothoracic surgeon Dr. Peters 2. ESRD on HD MWF Consult Dr Rodrigues nephrology continue HD as scheduled -- 3. Anemia of chronic Kidney disease Epogen at dialysis 4. Diabetes mellitus Dr Jacobs endocrinology on consult Levemir 18 units HSW and Aspart 4 units SQ AC Aspart sliding scale 5. A Fib/ A flutter/SSS rate controlled Not to restart therapeutic anticoagulation yet as per Cardio thoracic Surgery 6. HTN on norvasc and Metoprolol controlled 7. LLL infiltrate Likely cause of SOB along with pleural effusion Finishing course of Levaquin 7.Constipation on colace and lactulose 8. GI PPx Pantoprazole 9.DVT PPx heparin [facility]
--- NOTE | 2017-05-12 16:57 | CP.PCM.PN ---
Subjective - Date & Time of Evaluation Date of Evaluation: 05/12/17 Time of Evaluation: 16:54 - Subjective Subjective: pt is seen and examined, follow up consult is dictated ##[id number] s/p hd today, uf 2 lit hold bp med for sbp <130, and HR 50 Objective - Vital Signs/Intake and Output Vital Signs (last 24 hours): Temp Pulse Resp BP Pulse Ox 97.0 F L 66 20 108/59 L 95 05/12/17 07:39 05/12/17 13:52 05/12/17 07:39 05/12/17 13:52 05/12/17 07:39 - Medications Medications: Current Medications Atorvastatin Calcium (Lipitor) 40 mg PO HS [facility] Last Admin: 05/11/17 21:49 Dose: 40 mg Calcium Acetate (Phoslo) 667 mg PO BID [facility] Last Admin: 05/12/17 08:34 Dose: 667 mg Clopidogrel Bisulfate (Plavix) 75 mg PO DAILY [facility] Last Admin: 05/12/17 08:34 Dose: 75 mg Docusate Sodium (Colace) 100 mg PO BID [facility] Last Admin: 05/12/17 08:40 Dose: 100 mg Epoetin Prasanth (Procrit) 10,000 unit IV MWF@1600 [facility] Last Admin: 05/12/17 10:16 Dose: 10,000 unit Heparin Sodium (Porcine) (Heparin) 5,000 units SC Q8@0600,1400,2200 [facility] PRN Reason: Protocol Last Admin: 05/12/17 13:46 Dose: 5,000 units Insulin Detemir (Levemir) 18 units SC HS [facility] Last Admin: 05/11/17 22:14 Dose: 18 units Insulin Human Lispro (Humalog) 0 units SC ACHS [facility] PRN Reason: Protocol Last Admin: 05/12/17 13:43 Dose: Not Given Insulin Human Lispro (Humalog) 4 units SC AC [facility] Last Admin: 05/12/17 13:47 Dose: 4 unit Lactobacillus Acidophilus (Bacid Acidophilus) 1 cap PO BID [facility] Last Admin: 05/12/17 08:40 Dose: 1 cap Lactulose (Enulose) 20 gm PO DAILY [facility] PRN Reason: Constipation Last Admin: 05/04/17 17:07 Dose: 20 gm Levofloxacin (Levaquin) 500 mg PO DAILY [facility] PRN Reason: Protocol Last Admin: 05/12/17 08:36 Dose: 500 mg Metoprolol Tartrate (Lopressor) 25 mg PO Q12 [facility] Last Admin: 05/12/17 08:36 Dose: 25 mg Multivitamins/Minerals (Therapeutic-M Tab) 1 tab PO DAILY [facility] Last Admin: 05/12/17 08:35 Dose: 1 tab Pantoprazole Sodium (Protonix Ec Tab) 40 mg PO DAILY [facility] Last Admin: 05/12/17 08:35 Dose: 40 mg - Labs Labs: 05/11/17 05:30 05/11/17 05:30
--- NOTE | 2017-05-12 17:25 | PN ---
DATE: ENDOCRINOLOGY FOLLOWUP NOTE LOCATION: Room 623. SUBJECTIVE: This is a 76-year-old male with recent uncontrolled type 2 insulin-requiring diabetes, now undergoing acute rehabilitation therapy and is also being followed closely for metabolic management. He underwent a recent coronary artery bypass graft surgery at the [facility] as noted. His glycemic levels are much improved at this time and have ranged from 133-172 and 190 mg/dL. The latest chemistries showed a BUN of 49, sodium 133, potassium 4.8, chloride 88, CO2 of 32, glucose 144, and creatinine 8.4. So, at this time, we will continue the same basal and bolus insulin regimen to allow for dose equilibration and keep him on the Levemir given as 18 units subcu at bedtime daily as ordered. We will continue the Humalog given as 4 units subcu t.i.d. before meals as ordered. We will titrate incrementally as indicated to optimize metabolic control. We will follow. Cindy Jacobs MD
[2017-05-12] MEDS: Insulin Detemir 100 Units/ml Inj SC SCH (22:19)
--- NOTE | 2017-05-12 22:32 | PN ---
DATE: 05/12/2017 FOLLOWUP RENAL CONSULTATION LOCATION: The patient is located in acute rehab, room #623, bed 1. REQUESTED BY: Dr. Keila Colón. REASON FOR FOLLOWUP: End-stage renal disease, continuation of the hemodialysis. HISTORY OF PRESENT ILLNESS: Mr. 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 Now, the patient is in acute rehab for continuation of therapy. The patient underwent hemodialysis this morning and ultrafiltration of about 2 liters. Complains of feeling slightly dizzy. As per the registered nurse, the patient was given blood pressure medicine and then the patient underwent hemodialysis. The patient is not in acute distress, though complains of feeling slightly weak. No chest pain or palpitation. No fever. No cough. PHYSICAL EXAMINATION VITAL SIGNS: His current blood pressure is 108/59, pulse 66, respirations about 20, temperature 97, saturation 95%, height 5 feet 6 inches, and weight is 161 pounds. GENERAL: Mr. Lee is a 76-year-old elderly male, moderately built, moderately nourished, and not in acute distress. HEENT: Pupils are normal and reactive to light and accommodation. Conjunctivae are pink. Sclerae are anicteric. Tongue is moist. Trachea is midline. LUNGS: Symmetric on both sides. Bilateral breath sounds are present. Clear on auscultation. CARDIOVASCULAR SYSTEM: [place] at the fifth intercostal space, midclavicular line. S1 and S2 audible. No murmur or gallop. The patient has a midsternal scar present, healed well. ABDOMEN: Normal in appearance, soft, tympanic. No guarding. No rigidity. No hepatosplenomegaly. CENTRAL NERVOUS SYSTEM: The patient is alert, awake, and oriented x3. Nonfocal neuro examination. Cranial nerves II through XII grossly intact. Sensory and motor system is within normal limits. EXTREMITIES: No cyanosis. No clubbing. No edema. CURRENT MEDICATIONS: Include as follows: Bacid one capsule p.o. b.i.d., Colace 100 mg p.o. b.i.d., lactulose 20 g p.o. daily, subcu heparin 5000 q.8 hours, Lexapro, Humulin 4 units subq before meals, Levaquin 500 mg p.o. daily, Levemir 18 units subcu at bedtime, and Lipitor 40 mg p.o. at bedtime, Lopressor 25 mg p.o. q.12 hours, amlodipine 10 mg p.o. daily, calcium 667 mg p.o. b.i.d., Plavix 75 mg daily, Procrit 10,000 units three times a week, Protonix 40 mg daily, and multivitamin one tablet daily. LABORATORY DATA: Accu-Cheks 172 and 133, troponin 0.21, 0.20, and 0.20. 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 The patient is here for rehabilitation. 1. Endstage renal disease. Continue hemodialysis three times a week - Friday, Friday, and Friday. 2. Hypotension secondary to blood pressure medicines and dialysis. We will encourage p.o. fluid intake and we will hold blood pressure medicine for systolic blood pressure less than 130 and heart rate less than 50. Repeat labs in the a.m. 3. Diabetes. His sugars are under control. 4. Status post coronary artery bypass grafting. The patient is stable at this time. Thank you for allowing me to participate in your patient's care. Tasha Rodrigues MD
[2017-05-13] MEDS: Insulin Lispro (humaLOG) 100 Units/ml Inj SC SCH ×7 (06:30→22:05)
[2017-05-13] MEDS: Pantoprazole 40 mg EC Tab PO SCH (08:03)
[2017-05-13] MEDS: Multivitamin With Minerals Tab PO SCH (08:03)
[2017-05-13] MEDS: levoFLOXacin 500 MG TAB PO SCH (08:04)
[2017-05-13] MEDS: Lactobacillus Acidophilus 500 MU Cap PO SCH (08:07)
--- NOTE | 2017-05-13 08:37 | CARD ---
APPROVED REPORT EKG Measurement Heart [id number] ID [id number] <Conclusion> Poor data quality, interpretation may be adversely affected Ventricular-paced rhythm with occasional supraventricular complexes and with occasional premature ventricular complexes Abnormal ECG
--- NOTE | 2017-05-13 13:22 | CP.PCM.PN ---
Subjective - Date & Time of Evaluation Date of Evaluation: 05/13/17 Time of Evaluation: 13:21 - Subjective Subjective: Patient seen in room doing ok podiatry doing nail care no pain no sob continue with current care team conf. tomorrow Objective - Vital Signs/Intake and Output Vital Signs (last 24 hours): Temp Pulse Resp BP Pulse Ox 97.2 F L 65 20 121/47 L 97 05/13/17 11:36 05/13/17 10:18 05/13/17 08:00 05/13/17 08:05 05/13/17 10:18 - Medications Medications: Current Medications Acetaminophen (Tylenol 325mg Tab) 650 mg PO Q6 PRN PRN Reason: Headache Last Admin: 05/13/17 11:36 Dose: 650 mg Amlodipine Besylate (Norvasc) 10 mg PO DAILY [facility] Last Admin: 05/13/17 08:05 Dose: Not Given Atorvastatin Calcium (Lipitor) 40 mg PO HS [facility] Last Admin: 05/12/17 21:37 Dose: 40 mg Calcium Acetate (Phoslo) 667 mg PO BID [facility] Last Admin: 05/13/17 08:03 Dose: 667 mg Clopidogrel Bisulfate (Plavix) 75 mg PO DAILY [facility] Last Admin: 05/13/17 08:03 Dose: 75 mg Docusate Sodium (Colace) 100 mg PO BID [facility] Last Admin: 05/13/17 08:02 Dose: 100 mg Epoetin Prasanth (Procrit) 10,000 unit IV MWF@1600 [facility] Last Admin: 05/12/17 17:57 Dose: 10,000 unit Heparin Sodium (Porcine) (Heparin) 5,000 units SC Q8@0600,1400,2200 [facility] PRN Reason: Protocol Last Admin: 05/13/17 13:14 Dose: 5,000 units Insulin Detemir (Levemir) 18 units SC HS [facility] Stop: 05/13/17 22:00 Last Admin: 05/12/17 22:19 Dose: 18 units Insulin Detemir (Levemir) 20 units SC HS [facility] Insulin Human Lispro (Humalog) 0 units SC ACHS [facility] PRN Reason: Protocol Last Admin: 05/13/17 11:43 Dose: Not Given Insulin Human Lispro (Humalog) 4 units SC AC [facility] Last Admin: 05/13/17 11:43 Dose: 4 unit Lactulose (Enulose) 20 gm PO DAILY PRN PRN Reason: Constipation Last Admin: 05/04/17 17:07 Dose: 20 gm Metoprolol Tartrate (Lopressor) 25 mg PO Q12 [facility] Last Admin: 05/13/17 08:04 Dose: Not Given Multivitamins/Minerals (Therapeutic-M Tab) 1 tab PO DAILY [facility] Last Admin: 05/13/17 08:03 Dose: 1 tab Pantoprazole Sodium (Protonix Ec Tab) 40 mg PO DAILY [facility] Last Admin: 05/13/17 08:03 Dose: 40 mg - Labs Labs: 05/11/17 05:30 05/11/17 05:30
--- NOTE | 2017-05-13 17:55 | PN ---
ENDOCRINOLOGY FOLLOWUP NOTE LOCATION: Room #623. SUMMARY: This is a 76-year-old male with recent uncontrolled type 2 insulin-requiring diabetes, now being followed closely for metabolic management. His glycemic levels are fluctuating as his oral intake is much improved at this time and the latest glucose levels have ranged from 147 to 200 and 227 mg/dL. So at this time, we will actually modify his current basal and bolus insulin regimen and increase the Levemir to 20 units subcutaneous at bedtime daily as given. We will obtain serial chemistries and supplement accordingly as needed. We will also continue the low-dose correction scale using Humalog insulin as given. Moreover, we will continue his Humalog given as 4 units subcutaneous t.i.d before meals as given. We will titrate incrementally as indicated to optimize metabolic control. We will follow and advise accordingly. Cindy Jacobs MD
[2017-05-13] MEDS: Insulin Detemir 100 Units/ml Inj SC SCH ×3 (22:04→22:10)
[2017-05-14] MEDS: Insulin Lispro (humaLOG) 100 Units/ml Inj SC SCH ×7 (06:30→21:46)
[2017-05-14] MEDS: Multivitamin With Minerals Tab PO SCH (08:46)
[2017-05-14] MEDS: Pantoprazole 40 mg EC Tab PO SCH (08:46)
--- NOTE | 2017-05-14 12:13 | PSY.TMCNF ---
Nursing - Vital Signs Vital Signs (Last 8 hours): Vital Signs 05/14/17 05/14/17 05/14/17 08:08 08:45 08:46 Temperature 97.5 F L Pulse Rate 77 77 Respiratory 23 Rate Blood Pressure 134/55 L 134/55 L 134/55 L O2 Sat by Pulse 99 Oximetry 05/14/17 05/14/17 09:00 10:25 Temperature 97.5 F L Pulse Rate 77 69 Respiratory 23 Rate Blood Pressure 134/55 L O2 Sat by Pulse 98 Oximetry Pain: 0 - Precautions: Precautions: Fall Prevention, Cardiac/Pulmonary - Medications/Other Issues Comment: Complaining of easy fatigability, O2 sat >94% in RA. 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 - Toileting Toileting: Minimal Assistance - Bladder Management Bladder Management: Independent Frequency of Accidents: Pt is anuric and on HD - Bowel Management Bowel Pattern: Normal Bowel Management: Supervision Frequency of Accidents: 0 - Transfers Transfers: Minimal Assistance - ADL's ADL's: Minimal Assistance - Pain Management Comments: pt denies pain - Patient/Family Teaching Comments: Care post CABG , Cardiac and safety precautions - Goals/Time Frame Comments: Per multidisciplinary Care plan and goals - Provider Provider: Brit DELONGN RN CRRN Physical Therapy - Bed Mobility Bed Mobility: Contact Guard - Transfers Wheelchair to Mat: Contact Guard Sit to Stand: Contact Guard - Ambulation Level of Assistance: Verbal Cues, Contact Guard Distance (ft.): 75 Assistive Devices: Rolling Walker - Stair Negotiation Stairs: Level of Assistance: Verbal Cues, Contact Guard Number of Stairs: 12 Stairs: Assistive Devices: Right Handrail - Standing Balance Static Stand: Supervision Dynamic Stand: Contact Guard Assist - Pain Pain (assessed during therapy session): 0 - Insight/Carryover Insight/Carryover: Good - Patient/Family Education Comment: sternal precautions, safety, compensatory strategies, energy conservation, requires continued reinforcement - Assessment/Plan Assessment: Pt demonstrating improvements with participation and endurance and follows sternal precautions with cueing. Recommend continued services 5-6x/week to maximize independence with ADLs and functional transfers in order to return safely home. [ End ] - Goals Timeframe: 1 week Goals: S toilet txfer. MIN A toileting. MIN A bathing. S UE dressing. S LE dressing. MOD I grooming. mod I feeding - Provider Therapist: Lashawn Hahn PT DPT License Number: [id number] Occupational Therapy - Arousal/Attention/Orientation Level of Consciousness: Awake, Alert Patient Orientation: Person, Place, Time, Appropriate to Age, Appropriate to Situation - ADL/IADL Self Feeding: Set-up Help Grooming: Verbal Cues, Set-up Help, Minimal Assistance Bathing-Upper Extremity: Minimal Assistance Bathing-Lower Extremity: Moderate Assistance Dressing-Upper Extremity: Not Applicable, Verbal Cues, Set-up Help Dressing-Lower Extremity: Verbal Cues, Set-up Help, Minimal Assistance - Sitting Balance Static Sitting: Independent with upper extremity support Dynamic Sitting: Reaches out of base of support, Reaches within base of support , Requires supervision - Transfers Wheelchair to Bed Transfers: Supervision, Verbal Cues, Moderate Assistance Toilet Transfers: Supervision, Verbal Cues, Moderate Assistance - Wheelchair Management Level of Assistance: Supervision, Verbal Cues, Set-up Help Distance (ft.): 50 - Upper Extremity Status Right Upper Extremity Comment: ROM WFL, generalized weakness, MMT not formally assessed secondary to sternal precautions Left Upper Extremity Comment: ROM WFL, generalized weakness, MMT not formally assessed secondary to sternal precautions - Pain Pain (assessed during therapy session): 0 - Insight/Carryover Insight/Carryover: Good - Patient/Family Education Comment: sternal precautions, safety, compensatory strategies, energy conservation, requires continued reinforcement - Assessment/Plan Assessment: Pt demonstrating improvements with participation and endurance and follows sternal precautions with cueing. Recommend continued services 5-6x/week to maximize independence with ADLs and functional transfers in order to return safely home. [ End ] - Goals Timeframe: 1 week Goals: S toilet txfer. MIN A toileting. MIN A bathing. S UE dressing. S LE dressing. MOD I grooming. mod I feeding - Provider Therapist: Mirella Dailey License Number: [id number] Speech Therapy - Consult Information Patient on Program: Yes Medical Diagnosis: CABG Treatment Diagnosis: mild cognitive-linguistic deficits - Assessment Memory Impairment: Moderate - Plan Assessment: Pt demonstrating improvements with participation and endurance and follows sternal precautions with cueing. Recommend continued services 5-6x/week to maximize independence with ADLs and functional transfers in order to return safely home. [ End ] - Provider Therapist: Sarina Edmondson License Number: [id number] Recreational Therapy - Participation Participation: Participates in Individual and/or Group Sessions, Monitors His/ Her Own Leisure Time - Attendance Attendance: Daily - Activities Leisure Activities: Television - Socialization Level of Socialization: Initiates/interacts freely with care givers and peer - Diversional Time Diversional Time: listening to music - Assessment Assessment/Plan: Pt demonstrating improvements with participation and endurance and follows sternal precautions with cueing. Recommend continued services 5-6x/ week to maximize independence with ADLs and functional transfers in order to return safely home. [ End ] - Provider Therapist: Yolanda Hernadez, ANODE REBUILDER #[id number] Nutrition - Current Diet Current Diet/ Supplement/ Feedings: Adv bite sized, moderate consistent CHO, heart healthy, renal dialysis diet with 1000 mL fluid restriction, thin liquids , Nepro shake once daily. - Appetite Percent Meal Consumed: 50-74% - Comments Comments: Care post CABG , Cardiac and safety precautions - Assessment/Goals/Time Frame Assessment/Goals/Time Frame: Complaining of easy fatigability, O2 sat >94% in RA. No c/o SOB - Provider Provider: Stephanie Benitez MS, RD Case Management - Psychosocial Assessment Support Systems: Kiesha Thapazelda (daughter)- [phone] Psychological Interventions/Needs: Patient AAOx3, patient with depressed mood, however, refusing psychiatry eval/med. management. Discharge Concerns: Patient not adhering to sternal precautions, patient requiring max encouragement to participate in therapy, currently requiring min A for functional mobility Patient/Family Meeting: CM met with patient rehab team Intervention/Goal/Outcome:: 1. Goal: Supervision overall. 2. Home vs [facility]? dependent on progress in therapy. 3. Tentative discharge date: 05/18/2017. 4. continued encouragement to participate in therapy. - Discharge Plan Discharge Plan: Home with services, Subacute care - Provider Provider: WALT Hua, HOSPICE FELLOW License Number: [id number] Rehabilitation Plan - Treatment Plan Treatment Plan: Physical Therapy, Occupational Therapy, Dietary, Patient/Family Education - Discharge Plan Estimated Date of Discharge: 05/18/17 Discharge to: Home
--- NOTE | 2017-05-14 12:34 | CP.PCM.PN ---
Subjective - Date & Time of Evaluation Date of Evaluation: 05/14/17 Time of Evaluation: 12:33 - Subjective Subjective: Patient seen in room did a flight of steps, limited by endurance still I have discussed with him starting on Oxandrin he agreed to try no history of prostate CA Objective - Vital Signs/Intake and Output Vital Signs (last 24 hours): Temp Pulse Resp BP Pulse Ox 97.5 F L 69 23 134/55 L 98 05/14/17 09:00 05/14/17 10:25 05/14/17 09:00 05/14/17 09:00 05/14/17 10:25 - Medications Medications: Current Medications Acetaminophen (Tylenol 325mg Tab) 650 mg PO Q6 PRN PRN Reason: Headache Last Admin: 05/13/17 23:59 Dose: 650 mg Amlodipine Besylate (Norvasc) 10 mg PO DAILY [facility] Last Admin: 05/14/17 08:46 Dose: 10 mg Atorvastatin Calcium (Lipitor) 40 mg PO HS [facility] Last Admin: 05/13/17 22:04 Dose: 40 mg Calcium Acetate (Phoslo) 667 mg PO BID [facility] Last Admin: 05/14/17 08:41 Dose: 667 mg Clopidogrel Bisulfate (Plavix) 75 mg PO DAILY [facility] Last Admin: 05/14/17 08:46 Dose: 75 mg Docusate Sodium (Colace) 100 mg PO BID [facility] Last Admin: 05/14/17 08:45 Dose: 100 mg Epoetin Prasanth (Procrit) 10,000 unit IV MWF@1600 [facility] Heparin Sodium (Porcine) (Heparin) 5,000 units SC Q8@0600,1400,2200 [facility] PRN Reason: Protocol Last Admin: 05/14/17 06:08 Dose: 5,000 units Insulin Detemir (Levemir) 20 units SC HS [facility] Last Admin: 05/13/17 22:07 Dose: 20 unit Insulin Human Lispro (Humalog) 0 units SC ACHS [facility] PRN Reason: Protocol Last Admin: 05/14/17 12:25 Dose: Not Given Insulin Human Lispro (Humalog) 4 units SC AC [facility] Last Admin: 05/14/17 12:24 Dose: 4 unit Lactulose (Enulose) 20 gm PO DAILY PRN PRN Reason: Constipation Last Admin: 05/04/17 17:07 Dose: 20 gm Metoprolol Tartrate (Lopressor) 25 mg PO Q12 [facility] Last Admin: 05/14/17 08:45 Dose: 25 mg Multivitamins/Minerals (Therapeutic-M Tab) 1 tab PO DAILY [facility] Last Admin: 05/14/17 08:46 Dose: 1 tab Pantoprazole Sodium (Protonix Ec Tab) 40 mg PO DAILY [facility] Last Admin: 05/14/17 08:46 Dose: 40 mg - Labs Labs: 05/11/17 05:30 05/11/17 05:30
--- NOTE | 2017-05-14 14:32 | CP.PCM.PN ---
Subjective - Date & Time of Evaluation Date of Evaluation: 05/14/17 Time of Evaluation: 11:10 - Subjective Subjective: Patient seen and examined while on exercise bicycle. Still has limited endurance- started on Oxandrin by physiatry which I agree with. No new complaints by the patient or nursing staff. No new chest pains. Appears in a depressed mood. Objective - Vital Signs/Intake and Output Vital Signs (last 24 hours): Temp Pulse Resp BP Pulse Ox 97.5 F L 69 23 134/55 L 98 05/14/17 09:00 05/14/17 10:25 05/14/17 09:00 05/14/17 09:00 05/14/17 10:25 - Medications Medications: Current Medications Acetaminophen (Tylenol 325mg Tab) 650 mg PO Q6 PRN PRN Reason: Headache Last Admin: 05/14/17 14:29 Dose: 650 mg Amlodipine Besylate (Norvasc) 10 mg PO DAILY [facility] Last Admin: 05/14/17 08:46 Dose: 10 mg Atorvastatin Calcium (Lipitor) 40 mg PO HS [facility] Last Admin: 05/13/17 22:04 Dose: 40 mg Calcium Acetate (Phoslo) 667 mg PO BID [facility] Last Admin: 05/14/17 08:41 Dose: 667 mg Clopidogrel Bisulfate (Plavix) 75 mg PO DAILY [facility] Last Admin: 05/14/17 08:46 Dose: 75 mg Docusate Sodium (Colace) 100 mg PO BID [facility] Last Admin: 05/14/17 08:45 Dose: 100 mg Epoetin Prasanth (Procrit) 10,000 unit IV MWF@1600 [facility] Heparin Sodium (Porcine) (Heparin) 5,000 units SC Q8@0600,1400,2200 [facility] PRN Reason: Protocol Last Admin: 05/14/17 13:05 Dose: 5,000 units Insulin Detemir (Levemir) 20 units SC HS [facility] Last Admin: 05/13/17 22:07 Dose: 20 unit Insulin Human Lispro (Humalog) 0 units SC ACHS [facility] PRN Reason: Protocol Last Admin: 05/14/17 12:25 Dose: Not Given Insulin Human Lispro (Humalog) 4 units SC AC [facility] Last Admin: 05/14/17 12:24 Dose: 4 unit Lactulose (Enulose) 20 gm PO DAILY PRN PRN Reason: Constipation Last Admin: 12/17/17 17:07 Dose: 20 gm Metoprolol Tartrate (Lopressor) 25 mg PO Q12 [facility] Last Admin: 05/14/17 08:45 Dose: 25 mg Multivitamins/Minerals (Therapeutic-M Tab) 1 tab PO DAILY [facility] Last Admin: 05/14/17 08:46 Dose: 1 tab Oxandrolone (Oxandrin) 5 mg PO BID [facility] Pantoprazole Sodium (Protonix Ec Tab) 40 mg PO DAILY [facility] Last Admin: 05/14/17 08:46 Dose: 40 mg - Labs Labs: 05/11/17 05:30 05/11/17 05:30 - Additional Findings Additional findings: Physical exam: Constitutional- cooperative, awake, alert. Head- NCAT, PERRL Eye- PERRL, normal accommodation ENT- normal exam, MMM. Neck- normal inspection, supple, no JVD Respiratory- mild rales in left base, no wheezes or rhonchi Cardiovascular- RRR, +S1, +S2 no MRG GI/Abdominal- normal bowel sounds, soft, no mass, no hsm Skin- warm, dry. Having dialysis w/ AV fistula in left arm. Extremities Exam- normal capillary refill, normal inspection Neurological Exam- alert. Stable gait. Psych- normal mood, normal affect Assessment and Plan - Assessment and Plan (Free Text) Plan: Assessment: 76 years transferred [place] [facility] [place] .He has PMH significant for ESRD on HD MWF, DM2, CAD s/p stents in the past. Patient is stable , participating with PT. 1. NSTEMI s/p CABG, episode of cp today, now resolved Troponins minimally elevated- likely due to ESRD, stable. continue Cardiac Rehab Drapery Seamstress consult with Dr. Claudio appreciated Cont Lipitor,Plavix, Metoprolol follow up with cardiothoracic surgeon Dr. Peters 2. ESRD on HD MWF Consult Dr Rodrigues nephrology continue HD as scheduled -- 3. Anemia of chronic Kidney disease Epogen at dialysis 4. Diabetes mellitus Dr Jacobs endocrinology on consult Levemir 18 units HSW and Aspart 4 units SQ AC Aspart sliding scale 5. A Fib/ A flutter/SSS rate controlled Not to restart therapeutic anticoagulation yet as per Cardio thoracic Surgery 6. HTN on norvasc and Metoprolol controlled 7. LLL infiltrate Likely cause of SOB along with pleural effusion Finishing course of Levaquin 7.Constipation on colace and lactulose 8. GI PPx Pantoprazole 9.DVT PPx heparin SQH
[2017-05-14] MEDS ORDERED: Epoetin Alfa 20000 UNIT/ML Inj IV SCH (16:00)
[2017-05-14] MEDS: Insulin Detemir 100 Units/ml Inj SC SCH (21:45)
[2017-05-15] MEDS: Insulin Lispro (humaLOG) 100 Units/ml Inj SC SCH ×7 (07:13→21:34)
[2017-05-15 07:58] LABS: BASO % 0.5 % (0.0-2.0); EOS # 0.1 K/uL (0.0-0.7); EOS % 0.8 % (0.0-4.0); HEMOGLOBIN 11.9 g/dL (12.0-18.0); LYMPH # 1.1 K/uL (1.0-4.3); LYMPH % 15.4 % (20.0-40.0); MEAN CELL VOLUME 92.6 fl (80.0-94.0); MEAN CORPUSCULAR HGB CONC 32.4 g/dL (33.0-37.0); MEAN PLATELET VOLUME 7.3 fl (7.2-11.7); MONO % 13.2 % (0.0-10.0); NEUT # 5.2 K/uL (1.8-7.0); NEUT % 70.1 % (50.0-75.0); NRBC % 0.1 % (0.0-0.0); RBC 3.97 Mil/uL (4.40-5.90); RED CELL DISTRIBUTION WIDTH 18.6 % (11.5-14.5); WHITE BLOOD COUNT 7.4 K/uL (4.8-10.8)
[2017-05-15] MEDS: Pantoprazole 40 mg EC Tab PO SCH (08:03)
[2017-05-15] MEDS: Multivitamin With Minerals Tab PO SCH (08:03)
[2017-05-15 08:30] LABS: ALBUMIN 3.9 g/dL (3.5-5.0)
[2017-05-15 08:34] LABS: CALCIUM 9.7 mg/dL (8.4-10.2)
--- NOTE | 2017-05-15 09:50 | PN ---
DATE: ENDOCRINOLOGY FOLLOWUP NOTE LOCATION: Room 623. SUBJECTIVE: This is a -ciet-eeo male with recent coronary artery bypass graft surgery and transferred here to the Acute Rehab Unit for intensive physical and occupational therapy and is now being followed closely for metabolic management. His glycemic levels are fluctuating but much improved at this time and the latest glucose levels have ranged from 94 to 165 and 187 mg/dL. His latest chemistries showed a BUN of 49, sodium 133, potassium 4.8, chloride 88, CO2 of 32, glucose 144, and creatinine 8.4. So, at this time, we will continue the same basal and bolus insulin regimen to allow for dose equilibration and keep him on the Humalog given as 4 units subcu t.i.d. before meals as ordered. We will continue the Levemir given as 20 units subcu at bedtime daily as ordered. We will titrate incrementally as indicated to optimize metabolic control. We will follow. Cindy Jacobs MD
--- NOTE | 2017-05-15 13:19 | CP.PCM.CON ---
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 He has hx of ESRD on HD MWF, DM, CAD s/p Stents; He was admitted to [facility] with Dx of NSTEMI on 04/20/17 and CABG on 04/25/17 at the [facility]. pt currently presenting with depressed mood early insomnia with very poor sleep. anhedonia, low energy fairly poor appetite , increased worry and as per the pt lack of interest even in physical rehab pt denied any current suicidal thoughts or ideations, denied homicidal thoughts , denied manic or psychotic symptoms Past Patient History - Past Medical History & Family History Past Medical History?: Yes - Past Social History Smoking Status: Never Smoked Chewing Tobacco Use: No Cigar Use: No Alcohol: None Drugs: Denies Home Situation {Lives}: With Family - CARDIAC Hx Cardiac Disorders: Yes Hx Atrial Fibrillation: Yes Hx Hypertension: Yes Hx Pacemaker: Yes - PULMONARY Hx Respiratory Disorders: No - NEUROLOGICAL Hx Neurological Disorder: No - HEENT Hx HEENT Problems: No - RENAL Hx Chronic Kidney Disease: Yes Hx Dialysis: Yes Date of Last Dialysis Treatment: 04/30/17 (MW) - ENDOCRINE/METABOLIC Hx Diabetes Mellitus Type 1: Yes (??) - HEMATOLOGICAL/ONCOLOGICAL Hx Anemia: Yes - INTEGUMENTARY Hx Dermatological Problems: No - MUSCULOSKELETAL/RHEUMATOLOGICAL Hx Musculoskeletal Disorders: No - PSYCHIATRIC Hx Substance Use: No - SURGICAL HISTORY Hx Surgeries: Yes Hx Cardiac Catheterization: Yes Hx Coronary Artery Bypass Graft: Yes Other/Comment: CABG/PPM - ANESTHESIA Hx Anesthesia: Yes Hx Anesthesia Reactions: No Meds Allergies/Adverse Reactions: Allergies Allergy/AdvReac Type Severity Reaction Status Date / Time aspirin Allergy Intermediate .HIVES Verified 05/01/17 20:29 shellfish derived Allergy Intermediate .HIVES Verified 05/01/17 20:29 - Medications Medications: Current Medications Acetaminophen (Tylenol 325mg Tab) 650 mg PO Q6 PRN PRN Reason: Headache Last Admin: 05/14/17 14:29 Dose: 650 mg Amlodipine Besylate (Norvasc) 10 mg PO DAILY [facility] Last Admin: 05/15/17 08:10 Dose: 10 mg Atorvastatin Calcium (Lipitor) 40 mg PO HS [facility] Last Admin: 05/14/17 21:44 Dose: 40 mg Calcium Acetate (Phoslo) 667 mg PO BID COUNTS INCLUDE 234 BEDS AT THE [facility] Last Admin: 05/15/17 08:03 Dose: 667 mg Clopidogrel Bisulfate (Plavix) 75 mg PO DAILY COUNTS INCLUDE 234 BEDS AT THE [facility] Last Admin: 05/15/17 08:03 Dose: 75 mg Docusate Sodium (Colace) 100 mg PO BID COUNTS INCLUDE 234 BEDS AT THE [facility] Last Admin: 05/15/17 08:04 Dose: 100 mg Epoetin Prasanth (Procrit) 10,000 unit IV MWF@1600 COUNTS INCLUDE 234 BEDS AT THE [facility] Last Admin: 05/14/17 17:02 Dose: 10,000 unit Heparin Sodium (Porcine) (Heparin) 5,000 units SC Q8@0600,1400,2200 COUNTS INCLUDE 234 BEDS AT THE [facility] PRN Reason: Protocol Last Admin: 05/15/17 07:07 Dose: 5,000 units Ibuprofen (Motrin Tab) 600 mg PO Q6 PRN PRN Reason: Pain, Mild (1-3) Last Admin: 05/15/17 12:18 Dose: 600 mg Insulin Detemir (Levemir) 20 units SC HS COUNTS INCLUDE 234 BEDS AT THE [facility] Last Admin: 05/14/17 21:45 Dose: 20 unit Insulin Human Lispro (Humalog) 0 units SC ACHS COUNTS INCLUDE 234 BEDS AT THE [facility] PRN Reason: Protocol Last Admin: 05/15/17 11:56 Dose: Not Given Insulin Human Lispro (Humalog) 4 units SC AC COUNTS INCLUDE 234 BEDS AT THE [facility] Last Admin: 05/15/17 11:56 Dose: 4 unit Lactulose (Enulose) 20 gm PO DAILY PRN PRN Reason: Constipation Last Admin: 05/04/17 17:07 Dose: 20 gm Metoprolol Tartrate (Lopressor) 25 mg PO Q12 COUNTS INCLUDE 234 BEDS AT THE [facility] Last Admin: 05/15/17 08:10 Dose: 25 mg Multivitamins/Minerals (Therapeutic-M Tab) 1 tab PO DAILY COUNTS INCLUDE 234 BEDS AT THE [facility] Last Admin: 05/15/17 08:03 Dose: 1 tab Oxandrolone (Oxandrin) 5 mg PO BID COUNTS INCLUDE 234 BEDS AT THE [facility] Last Admin: 05/15/17 08:07 Dose: 5 mg Pantoprazole Sodium (Protonix Ec Tab) 40 mg PO DAILY COUNTS INCLUDE 234 BEDS AT THE [facility] Last Admin: 05/15/17 08:03 Dose: 40 mg Physical Exam - Psychiatric Exam Additional comments: pt seen in bed, cooperative good eye contact, speech soft and slow , psychomotor retardation, thought form coherent and goal directed denied any current perceptual disturbances, non elicited denied suicidal or homicidal ideations alert awake, oriented to person and place andshowing insight into illness Results - Vital Signs Recent Vital Signs: Last Vital Signs Temp 97.5 F L 05/15/17 08:10 Pulse 71 05/15/17 08:10 Resp 20 05/15/17 08:10 BP 138/62 05/15/17 08:10 Pulse Ox 99 05/15/17 08:10 - Labs Result Diagrams: 05/15/17 07:14 05/15/17 07:14 Labs: Laboratory Results - last 24 hr 05/14/17 05/14/17 05/15/17 16:08 20:56 07:06 WBC RBC Hgb Hct MCV MCH MCHC RDW Plt Count MPV Neut % (Auto) Lymph % (Auto) [place] % (Auto) Eos % (Auto) Baso % (Auto) Neut # Lymph # [place] # Eos # Baso # Sodium Potassium Chloride Carbon Dioxide Anion Gap BUN Creatinine Est GFR ( Amer) Est GFR (Non-Af Amer) POC Glucose (mg/dL) 94 106 155 H Random Glucose Calcium Phosphorus Total Bilirubin AST ALT Alkaline Phosphatase Total Protein Albumin Globulin Albumin/Globulin Ratio 05/15/17 05/15/17 05/15/17 07:14 07:14 11:52 WBC 7.4 RBC 3.97 L Hgb 11.9 L Hct 36.8 MCV 92.6 MCH 30.0 MCHC 32.4 L RDW 18.6 H Plt Count 246 MPV 7.3 Neut % (Auto) 70.1 Lymph % (Auto) 15.4 L [place] % (Auto) 13.2 H Eos % (Auto) 0.8 Baso % (Auto) 0.5 Neut # 5.2 Lymph # 1.1 [place] # 1.0 H Eos # 0.1 Baso # 0.0 Sodium 136 Potassium 5.0 Chloride 92 L Carbon Dioxide 36 H Anion Gap 13 BUN 38 H Creatinine 6.9 H Est GFR ( Amer) 9 Est GFR (Non-Af Amer) 8 POC Glucose (mg/dL) 242 H Random Glucose 164 H Calcium 9.7 Phosphorus 5.1 H Total Bilirubin 0.8 AST 37 ALT 22 Alkaline Phosphatase 78 Total Protein 7.7 Albumin 3.9 Globulin 3.9 Albumin/Globulin Ratio 1.0 Assessment & Plan - Assessment and Plan (Free Text) 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
[2017-05-15] MEDS: Insulin Detemir 100 Units/ml Inj SC SCH (21:32)
--- NOTE | 2017-05-16 00:51 | PN ---
DATE: LOCATION: Room 623 SUBJECTIVE: This is a 76-year-old male with recent acute myocardial infarction and subsequent coronary artery bypass graft surgery and is now undergoing acute rehabilitation therapy and is also being followed closely for metabolic management. His glycemic levels are fluctuating, but improved and his oral intake is also quite variable as per the nursing staff. His glucose levels today have ranged from 155 to 242 mg/dL. His latest chemistry showed a BUN of 38, sodium 136, potassium 5.0, chloride 92, CO2 of 36, glucose 164 and creatinine 6.9. So at this time we will continue the same basal and bolus insulin regimen as given with Levemir given as 20 units subcu at bedtime daily as ordered. We will continue the Humalog given as 4 units subcu t.i.d. before meals as given. We will titrate incrementally as indicated to optimize metabolic control. As his oral intake improves, we can always titrate his prandial insulin to a higher dose regimen as indicated. We will obtain serial chemistries and supplement accordingly as needed. We will follow with you. Cindy Jacobs MD
[2017-05-16] MEDS: Insulin Lispro (humaLOG) 100 Units/ml Inj SC SCH ×7 (07:28→21:49)
--- NOTE | 2017-05-16 08:04 | CP.PCM.CON ---
History of Present Illness - History of Present Illness History of Present Illness: Pt seen for supportive therapy 7:40-8. Pt discussed continued concern with "fatigue...I'm weak." Pt provided encouragement, positive thoughts reviewed and reiterated, patient discussing possible return home vs. continued rehab, affect remains constricted and mood dysphoric over status, no si no hi ideation. Plan: Continued Sup therapy Past Patient History - Past Medical History & Family History Past Medical History?: Yes - Past Social History Smoking Status: Never Smoked Chewing Tobacco Use: No Cigar Use: No Alcohol: None Drugs: Denies Home Situation {Lives}: With Family - CARDIAC Hx Cardiac Disorders: Yes Hx Atrial Fibrillation: Yes Hx Hypertension: Yes Hx Pacemaker: Yes - PULMONARY Hx Respiratory Disorders: No - NEUROLOGICAL Hx Neurological Disorder: No - HEENT Hx HEENT Problems: No - RENAL Hx Chronic Kidney Disease: Yes Hx Dialysis: Yes Date of Last Dialysis Treatment: 04/30/17 (MWF) - ENDOCRINE/METABOLIC Hx Diabetes Mellitus Type 1: Yes (??) - HEMATOLOGICAL/ONCOLOGICAL Hx Anemia: Yes - INTEGUMENTARY Hx Dermatological Problems: No - MUSCULOSKELETAL/RHEUMATOLOGICAL Hx Musculoskeletal Disorders: No - PSYCHIATRIC Hx Substance Use: No - SURGICAL HISTORY Hx Surgeries: Yes Hx Cardiac Catheterization: Yes Hx Coronary Artery Bypass Graft: Yes Other/Comment: CABG/PPM - ANESTHESIA Hx Anesthesia: Yes Hx Anesthesia Reactions: No Meds Allergies/Adverse Reactions: Allergies Allergy/AdvReac Type Severity Reaction Status Date / Time aspirin Allergy Intermediate .HIVES Verified 05/01/17 20:29 shellfish derived Allergy Intermediate .HIVES Verified 05/01/17 20:29 - Medications Medications: Current Medications Acetaminophen (Tylenol 325mg Tab) 650 mg PO Q6 PRN PRN Reason: Headache Last Admin: 05/14/17 14:29 Dose: 650 mg Amlodipine Besylate (Norvasc) 10 mg PO DAILY [facility] Last Admin: 05/15/17 08:10 Dose: 10 mg Atorvastatin Calcium (Lipitor) 40 mg PO [facility] Last Admin: 05/15/17 21:31 Dose: 40 mg Calcium Acetate (Phoslo) 667 mg PO BID [facility] Last Admin: 05/15/17 16:55 Dose: 667 mg Clopidogrel Bisulfate (Plavix) 75 mg PO DAILY [facility] Last Admin: 05/15/17 08:03 Dose: 75 mg Docusate Sodium (Colace) 100 mg PO BID [facility] Last Admin: 05/15/17 16:56 Dose: 100 mg Epoetin Prasanth (Procrit) 10,000 unit IV MWF@1600 [facility] Last Admin: 05/14/17 17:02 Dose: 10,000 unit Heparin Sodium (Porcine) (Heparin) 5,000 units SC Q8@0600,1400,2200 [facility] PRN Reason: Protocol Last Admin: 05/16/17 06:11 Dose: 5,000 units Ibuprofen (Motrin Tab) 600 mg PO Q6 PRN PRN Reason: Pain 1-10. Insulin Detemir (Levemir) 20 units SC HS [facility] Last Admin: 05/15/17 21:32 Dose: 20 unit Insulin Human Lispro (Humalog) 0 units SC ACHS [facility] PRN Reason: Protocol Last Admin: 05/16/17 07:28 Dose: Not Given Insulin Human Lispro (Humalog) 4 units SC AC [facility] Last Admin: 05/15/17 16:55 Dose: 4 unit Lactulose (Enulose) 20 gm PO DAILY PRN PRN Reason: Constipation Last Admin: 05/04/17 17:07 Dose: 20 gm Metoprolol Tartrate (Lopressor) 25 mg PO Q12 [facility] Last Admin: 05/15/17 21:35 Dose: Not Given Mirtazapine (Remeron) 7.5 mg PO HS [facility] Last Admin: 05/15/17 21:46 Dose: 7.5 mg Multivitamins/Minerals (Therapeutic-M Tab) 1 tab PO DAILY [facility] Last Admin: 05/15/17 08:03 Dose: 1 tab Oxandrolone (Oxandrin) 5 mg PO BID [facility] Last Admin: 05/15/17 16:55 Dose: 5 mg Pantoprazole Sodium (Protonix Ec Tab) 40 mg PO DAILY [facility] Last Admin: 05/15/17 08:03 Dose: 40 mg Results - Vital Signs Recent Vital Signs: Last Vital Signs Temp 97.7 F 05/15/17 21:00 Pulse 70 05/15/17 21:35 Resp 20 05/15/17 21:00 BP 113/52 L 05/15/17 21:35 Pulse Ox 99 05/15/17 21:00 - Labs Result Diagrams: 05/15/17 07:14 05/15/17 07:14 Labs: Laboratory Results - last 24 hr 05/15/17 05/15/17 05/15/17 07:14 11:52 16:00 Sodium 136 Potassium 5.0 Chloride 92 L Carbon Dioxide 36 H Anion Gap 13 BUN 38 H Creatinine 6.9 H Est GFR ( Amer) 9 Est GFR (Non-Af Amer) 8 POC Glucose (mg/dL) 242 H 167 H Random Glucose 164 H Calcium 9.7 Phosphorus 5.1 H Total Bilirubin 0.8 AST 37 ALT 22 Alkaline Phosphatase 78 Total Protein 7.7 Albumin 3.9 Globulin 3.9 Albumin/Globulin Ratio 1.0 05/15/17 05/16/17 21:22 05:48 Sodium Potassium Chloride Carbon Dioxide Anion Gap BUN Creatinine Est GFR ( Amer) Est GFR (Non-Af Amer) POC Glucose (mg/dL) 247 H 181 H Random Glucose Calcium Phosphorus Total Bilirubin AST ALT Alkaline Phosphatase Total Protein Albumin Globulin Albumin/Globulin Ratio
[2017-05-16] MEDS: Multivitamin With Minerals Tab PO SCH (09:34)
[2017-05-16] MEDS: Pantoprazole 40 mg EC Tab PO SCH (09:34)
--- NOTE | 2017-05-16 11:50 | CP.PCM.PN ---
Subjective - Date & Time of Evaluation Date of Evaluation: 05/16/17 Time of Evaluation: 11:49 - Subjective Subjective: pt is seen and examined, follow up consult is dictated #[id number] for hd today, s/p hd on 05/14 Objective - Vital Signs/Intake and Output Vital Signs (last 24 hours): Temp Pulse Resp BP Pulse Ox 98 F 76 20 130/80 98 05/16/17 09:44 05/16/17 09:44 05/16/17 09:44 05/16/17 09:44 05/16/17 09:44 - Medications Medications: Current Medications Acetaminophen (Tylenol 325mg Tab) 650 mg PO Q6 PRN PRN Reason: Headache Last Admin: 05/14/17 14:29 Dose: 650 mg Amlodipine Besylate (Norvasc) 10 mg PO DAILY [facility] Last Admin: 05/16/17 09:19 Dose: 10 mg Atorvastatin Calcium (Lipitor) 40 mg PO HS [facility] Last Admin: 05/15/17 21:31 Dose: 40 mg Calcium Acetate (Phoslo) 667 mg PO BID [facility] Last Admin: 05/16/17 09:20 Dose: 667 mg Clopidogrel Bisulfate (Plavix) 75 mg PO DAILY [facility] Last Admin: 05/16/17 09:20 Dose: 75 mg Docusate Sodium (Colace) 100 mg PO BID [facility] Last Admin: 05/16/17 09:16 Dose: 100 mg Epoetin Prasanth (Procrit) 10,000 unit IV MWF@1600 [facility] Heparin Sodium (Porcine) (Heparin) 5,000 units SC Q8@0600,1400,2200 [facility] PRN Reason: Protocol Last Admin: 05/16/17 06:11 Dose: 5,000 units Ibuprofen (Motrin Tab) 600 mg PO Q6 PRN PRN Reason: Pain 1-10. Insulin Detemir (Levemir) 22 units SC HS [facility] Insulin Human Lispro (Humalog) 0 units SC ACHS [facility] PRN Reason: Protocol Last Admin: 05/16/17 07:28 Dose: Not Given Insulin Human Lispro (Humalog) 6 units SC AC [facility] Lactulose (Enulose) 20 gm PO DAILY PRN PRN Reason: Constipation Last Admin: 05/04/17 17:07 Dose: 20 gm Metoprolol Tartrate (Lopressor) 25 mg PO Q12 [facility] Last Admin: 05/16/17 09:19 Dose: 25 mg Mirtazapine (Remeron) 7.5 mg PO HS [facility] Last Admin: 05/15/17 21:46 Dose: 7.5 mg Multivitamins/Minerals (Therapeutic-M Tab) 1 tab PO DAILY [facility] Last Admin: 05/16/17 09:34 Dose: 1 tab Oxandrolone (Oxandrin) 5 mg PO BID [facility] Last Admin: 05/16/17 09:22 Dose: 5 mg Pantoprazole Sodium (Protonix Ec Tab) 40 mg PO DAILY [facility] Last Admin: 05/16/17 09:34 Dose: 40 mg - Labs Labs: 05/15/17 07:14 05/15/17 07:14
--- NOTE | 2017-05-16 13:06 | PN ---
DATE: FOLLOWUP RENAL CONSULTATION REQUESTED BY: Keila Colón DO. REASON FOR RENAL CONSULTATION: End-stage renal disease, for continuation of hemodialysis. 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 The patient underwent bypass and now transferred to acute rehab for continuation of physical therapy. The patient is feeling weak and tired and poor appetite. Denies any chest pain, palpitation. Denies any fever, cough. No abdominal pain. No nausea, vomiting, diarrhea. The patient is due for hemodialysis, so the patient underwent hemodialysis on Friday. 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 VITAL SIGNS: His vital signs as follows. Blood pressure 130/80, pulse 76, respirations 20, temperature 98, saturation 98%. Height 5 feet 6 inches and weight is 161 pounds. BMI 26. HEENT: Pupils are normal and reactive to light and accommodation. Conjunctivae pink. Sclerae anicteric. Tongue is moist. Trachea is midline. LUNGS: Symmetric on both sides. Bilateral breath sounds present. Clear on auscultation. CARDIOVASCULAR SYSTEM: [place] at the fifth intercostal space, midclavicular line. S1 and S2 audible. No murmur or gallop. The patient has a midsternal scar present, which is healing very well. ABDOMEN: Normal in appearance, soft, tympanic. No guarding. No rigidity. No hepatosplenomegaly. CENTRAL NERVOUS SYSTEM: The patient is alert, awake, oriented x3. Nonfocal neuro examination. Cranial nerves II through XII grossly intact. Sensory and motor system is within normal limits. EXTREMITIES: No cyanosis. No clubbing. No edema. LABORATORY DATA: His laboratory data include as follows as of 05/15/2017, WBC 7.4, hemoglobin 11.9, hematocrit is 36.8, platelets 246. Sodium 136, potassium is 5, chloride 92, CO2 of 36, BUN 38, creatinine 6.9 and glucose 164, calcium 9.7, phosphorus 5.1, magnesium no results, total bili 0.8, AST 37, ALT 22, alk phos is 78, total protein 7.7, albumin is 3.9. MEDICATIONS: His current medications include as follows. Colace 100 mg p.o. b.i.d., lactulose 20 g p.o. daily p.r.n., subcu heparin 5000 units q. 8 hours and lispro, Humalog 6 units subcu before meals. Lipitor 40 mg at bedtime and Levemir 22 units subcu at bedtime and ibuprofen 600 mg p.o. q. 6 p.r.n., Norvasc 10 mg daily, Oxandrin 5 mg p.o. b.i.d., PhosLo 667 mg p.o. b.i.d. and Plavix 75 mg p.o. daily, Procrit 10,000 units 3 times a week and Protonix 40 mg p.o. daily, Remeron 7.5 mg p.o. at bedtime and multivitamin 1 tablet daily and Tylenol. ASSESSMENT AND PLAN: In summary, [place] is a 76-year-old elderly [place] male who has hypertension, diabetes, hyperlipidemia, coronary artery disease, status post coronary artery bypass graft with debility. 1. End-stage renal disease. Continue hemodialysis 3 times a week, Friday, Friday, Friday. 2. Hypertension. Blood pressure is stable. Continue his current medications, Norvasc and metoprolol. 3. Hyperlipidemia. Continue Lipitor. 4. Coronary artery disease, status post Coronary artery bypass graft. Continue physical therapy and occupational therapy as per the rehab recommendation. The patient is scheduled for hemodialysis this afternoon. Thank you for allowing me to participate in your patient's care. Tasha Rodrigues MD
--- NOTE | 2017-05-16 14:12 | CP.PCM.PN ---
Subjective - Date & Time of Evaluation Date of Evaluation: 05/16/17 Time of Evaluation: 13:00 - Subjective Subjective: Patient was seen and examined at bedside. He continues to appear in a depressed mood and says little. He was seen by psychiatry and started on Mirtazapine 7.5 mg po HS; and was also started on Exandrin by physiatry. He has no complaints today. Denies cp/sob. Continues to work with PT/OT. Hemodynamically stable and afebrile. Objective - Vital Signs/Intake and Output Vital Signs (last 24 hours): Temp Pulse Resp BP Pulse Ox 98 F 79 20 130/80 96 05/16/17 09:44 05/16/17 13:44 05/16/17 09:44 05/16/17 09:44 05/16/17 13:44 - Medications Medications: Current Medications Acetaminophen (Tylenol 325mg Tab) 650 mg PO Q6 PRN PRN Reason: Headache Last Admin: 05/14/17 14:29 Dose: 650 mg Amlodipine Besylate (Norvasc) 10 mg PO DAILY [facility] Last Admin: 05/16/17 09:19 Dose: 10 mg Atorvastatin Calcium (Lipitor) 40 mg PO HS [facility] Last Admin: 05/15/17 21:31 Dose: 40 mg Calcium Acetate (Phoslo) 667 mg PO BID [facility] Last Admin: 05/16/17 09:20 Dose: 667 mg Clopidogrel Bisulfate (Plavix) 75 mg PO DAILY [facility] Last Admin: 05/16/17 09:20 Dose: 75 mg Docusate Sodium (Colace) 100 mg PO BID [facility] Last Admin: 05/16/17 09:16 Dose: 100 mg Epoetin Prasanth (Procrit) 10,000 unit IV MWF@1600 [facility] Heparin Sodium (Porcine) (Heparin) 5,000 units SC Q8@0600,1400,2200 [facility] PRN Reason: Protocol Last Admin: 05/16/17 13:47 Dose: 5,000 units Ibuprofen (Motrin Tab) 600 mg PO Q6 PRN PRN Reason: Pain 1-10. Insulin Detemir (Levemir) 22 units SC HS [facility] Insulin Human Lispro (Humalog) 0 units SC ACHS [facility] PRN Reason: Protocol Last Admin: 05/16/17 11:30 Dose: Not Given Insulin Human Lispro (Humalog) 6 units SC AC [facility] Last Admin: 05/16/17 11:30 Dose: 6 units Lactulose (Enulose) 20 gm PO DAILY PRN PRN Reason: Constipation Last Admin: 05/04/17 17:07 Dose: 20 gm Metoprolol Tartrate (Lopressor) 25 mg PO Q12 [facility] Last Admin: 05/16/17 09:19 Dose: 25 mg Mirtazapine (Remeron) 7.5 mg PO HS [facility] Last Admin: 05/15/17 21:46 Dose: 7.5 mg Multivitamins/Minerals (Therapeutic-M Tab) 1 tab PO DAILY [facility] Last Admin: 05/16/17 09:34 Dose: 1 tab Oxandrolone (Oxandrin) 5 mg PO BID [facility] Last Admin: 05/16/17 09:22 Dose: 5 mg Pantoprazole Sodium (Protonix Ec Tab) 40 mg PO DAILY [facility] Last Admin: 05/16/17 09:34 Dose: 40 mg - Labs Labs: 05/15/17 07:14 05/15/17 07:14 - Additional Findings Additional findings: Physical exam: Constitutional- cooperative, awake, alert. Head- NCAT, PERRL Eye- PERRL, normal accommodation ENT- normal exam, MMM. Neck- normal inspection, supple, no JVD Respiratory- mild rales in left base, no wheezes or rhonchi Cardiovascular- RRR, +S1, +S2 no MRG GI/Abdominal- normal bowel sounds, soft, no mass, no hsm Skin- warm, dry. AV fistula in L arm Extremities Exam- normal capillary refill, normal inspection Neurological Exam- alert. Stable gait. Psych- depressed mood. Flat affect. Assessment and Plan - Assessment and Plan (Free Text) Plan: ASSESSMENT: 76 years transferred to acute s/p NSTEMI and CABG at [facility], for physical therapy .He has PMH significant for ESRD on HD MWF, DM2, CAD s/p stents in the past. Patient is stable , participating with PT. 1. NSTEMI s/p CABG, episode of cp today, now resolved Troponins minimally elevated- likely due to ESRD, stable. continue Cardiac Rehab Private Secretary consult with Dr. Claudio appreciated Cont Lipitor,Plavix, Metoprolol follow up with cardiothoracic surgeon Dr. Peters 2. ESRD on HD MWF Consult Dr Rodrigues nephrology continue HD as scheduled -- 3. Anemia of chronic Kidney disease Epogen at dialysis 4. Diabetes mellitus Dr Jacobs endocrinology on consult Levemir 18 units HSW and Aspart 4 units SQ AC Aspart sliding scale 5. A Fib/ A flutter/SSS rate controlled Not to restart therapeutic anticoagulation yet as per Cardio thoracic Surgery 6. HTN on norvasc and Metoprolol controlled 7. LLL infiltrate Likely cause of SOB along with pleural effusion Finishing course of Levaquin 7.Constipation on colace and lactulose 8. GI PPx Pantoprazole 9.DVT PPx heparin [facility]
--- NOTE | 2017-05-16 16:14 | CP.PCM.PN ---
Subjective - Date & Time of Evaluation Date of Evaluation: 05/16/17 Time of Evaluation: 16:13 - Subjective Subjective: Patient seen in room getting HD now pain is not present ambulated 50' continues on current medications no adverse reaction to the Oxandrin Objective - Vital Signs/Intake and Output Vital Signs (last 24 hours): Temp Pulse Resp BP Pulse Ox 98 F 79 20 130/80 96 05/16/17 09:44 05/16/17 13:44 05/16/17 09:44 05/16/17 09:44 05/16/17 13:44 - Medications Medications: Current Medications Acetaminophen (Tylenol 325mg Tab) 650 mg PO Q6 PRN PRN Reason: Headache Last Admin: 05/14/17 14:29 Dose: 650 mg Amlodipine Besylate (Norvasc) 10 mg PO DAILY [facility] Last Admin: 05/16/17 09:19 Dose: 10 mg Atorvastatin Calcium (Lipitor) 40 mg PO HS [facility] Last Admin: 05/15/17 21:31 Dose: 40 mg Calcium Acetate (Phoslo) 667 mg PO BID [facility] Last Admin: 05/16/17 09:20 Dose: 667 mg Clopidogrel Bisulfate (Plavix) 75 mg PO DAILY [facility] Last Admin: 05/16/17 09:20 Dose: 75 mg Docusate Sodium (Colace) 100 mg PO BID [facility] Last Admin: 05/16/17 09:16 Dose: 100 mg Epoetin Prasanth (Procrit) 10,000 unit IV MWF@1600 [facility] Heparin Sodium (Porcine) (Heparin) 5,000 units SC Q8@0600,1400,2200 [facility] PRN Reason: Protocol Last Admin: 05/16/17 13:47 Dose: 5,000 units Ibuprofen (Motrin Tab) 600 mg PO Q6 PRN PRN Reason: Pain 1-10. Insulin Detemir (Levemir) 22 units SC HS [facility] Insulin Human Lispro (Humalog) 0 units SC ACHS [facility] PRN Reason: Protocol Last Admin: 05/16/17 11:30 Dose: Not Given Insulin Human Lispro (Humalog) 6 units SC AC [facility] Last Admin: 05/16/17 11:30 Dose: 6 units Lactulose (Enulose) 20 gm PO DAILY PRN PRN Reason: Constipation Last Admin: 05/04/17 17:07 Dose: 20 gm Metoprolol Tartrate (Lopressor) 25 mg PO Q12 [facility] Last Admin: 05/16/17 09:19 Dose: 25 mg Mirtazapine (Remeron) 7.5 mg PO HS [facility] Last Admin: 05/15/17 21:46 Dose: 7.5 mg Multivitamins/Minerals (Therapeutic-M Tab) 1 tab PO DAILY [facility] Last Admin: 05/16/17 09:34 Dose: 1 tab Oxandrolone (Oxandrin) 5 mg PO BID [facility] Last Admin: 05/16/17 09:22 Dose: 5 mg Pantoprazole Sodium (Protonix Ec Tab) 40 mg PO DAILY [facility] Last Admin: 05/16/17 09:34 Dose: 40 mg - Labs Labs: 05/15/17 07:14 05/15/17 07:14
[2017-05-16] MEDS: EPOETIN ALFA 10,000 UNIT/ML ML IV SCH (17:37)
[2017-05-16] MEDS: Insulin Detemir 100 Units/ml Inj SC SCH (22:03)
[2017-05-17] MEDS: Insulin Lispro (humaLOG) 100 Units/ml Inj SC SCH ×7 (07:00→21:24)
[2017-05-17] MEDS: Multivitamin With Minerals Tab PO SCH (08:42)
[2017-05-17] MEDS: Pantoprazole 40 mg EC Tab PO SCH (08:43)
--- NOTE | 2017-05-17 11:22 | PN ---
DATE: ENDO FOLLOWUP NOTE LOCATION: Room 623. SUBJECTIVE: This is a 76-year-old male with recent uncontrolled type 2 insulin-requiring diabetes, now being followed closely for metabolic management. His glycemic levels are fluctuating, but much improved at this time and the glucose values overnight have improved, ranging from 147-149 mg/dL. His latest chemistry showed a BUN of 38, sodium 136, potassium 5.0, chloride 92, CO2 of 36, glucose 164 and creatinine 6.9. So at this time, we will continue the same basal and bolus insulin regimen to allow for dose equilibration and keep him on the recently modified dosing of Levemir at 22 units subcu at bedtime daily as ordered. We will continue the Humalog given as 6 units subcu t.i.d. before meals as ordered. We will titrate incrementally as indicated to optimize metabolic control. We will follow and advise accordingly. Cindy Jacobs MD
--- NOTE | 2017-05-17 13:27 | CP.PCM.PN ---
Subjective - Date & Time of Evaluation Date of Evaluation: 05/17/17 Time of Evaluation: 13:26 - Subjective Subjective: pt is seen and examined, follow up consult is dictated #[id number] s/p hd on 05/16/2017, uf about 2.5 ,stable tx Objective - Vital Signs/Intake and Output Vital Signs (last 24 hours): Temp Pulse Resp BP Pulse Ox 97.5 F L 70 19 115/60 96 05/17/17 08:45 05/17/17 08:50 05/17/17 08:45 05/17/17 08:50 05/17/17 08:45 - Medications Medications: Current Medications Acetaminophen (Tylenol 325mg Tab) 650 mg PO Q6 PRN PRN Reason: Headache Last Admin: 05/14/17 14:29 Dose: 650 mg Acetaminophen (Tylenol 325mg Tab) 650 mg PO Q6 PRN PRN Reason: Other Last Admin: 05/16/17 21:41 Dose: 650 mg Amlodipine Besylate (Norvasc) 10 mg PO DAILY [facility] Last Admin: 05/17/17 08:47 Dose: Not Given Atorvastatin Calcium (Lipitor) 40 mg PO HS [facility] Last Admin: 05/16/17 21:48 Dose: 40 mg Calcium Acetate (Phoslo) 667 mg PO BID [facility] Last Admin: 05/17/17 08:42 Dose: 667 mg Clopidogrel Bisulfate (Plavix) 75 mg PO DAILY [facility] Last Admin: 05/17/17 08:42 Dose: 75 mg Docusate Sodium (Colace) 100 mg PO BID [facility] Last Admin: 05/17/17 08:44 Dose: 100 mg Epoetin Prasanth (Procrit) 10,000 unit IV MWF@1600 [facility] Last Admin: 05/16/17 17:37 Dose: 10,000 unit Heparin Sodium (Porcine) (Heparin) 5,000 units SC Q8@0600,1400,2200 [facility] PRN Reason: Protocol Last Admin: 05/17/17 06:21 Dose: 5,000 units Ibuprofen (Motrin Tab) 600 mg PO Q6 PRN PRN Reason: Pain 1-10. Insulin Detemir (Levemir) 22 units SC [facility] Last Admin: 05/16/17 22:03 Dose: 22 units Insulin Human Lispro (Humalog) 0 units SC [facility] PRN Reason: Protocol Last Admin: 05/17/17 12:04 Dose: 2 units Insulin Human Lispro (Humalog) 6 units SC AC [facility] Last Admin: 05/17/17 12:05 Dose: 6 units Lactulose (Enulose) 20 gm PO DAILY PRN PRN Reason: Constipation Last Admin: 05/04/17 17:07 Dose: 20 gm Metoprolol Tartrate (Lopressor) 25 mg PO Q12 [facility] Last Admin: 05/17/17 08:50 Dose: Not Given Mirtazapine (Remeron) 7.5 mg PO HS [facility] Last Admin: 05/16/17 22:01 Dose: 7.5 mg Multivitamins/Minerals (Therapeutic-M Tab) 1 tab PO DAILY [facility] Last Admin: 05/17/17 08:42 Dose: 1 tab Oxandrolone (Oxandrin) 5 mg PO BID [facility] Last Admin: 05/17/17 08:47 Dose: 5 mg Pantoprazole Sodium (Protonix Ec Tab) 40 mg PO DAILY [facility] Last Admin: 05/17/17 08:43 Dose: 40 mg - Labs Labs: 05/15/17 07:14 05/15/17 07:14
--- NOTE | 2017-05-17 14:11 | PN ---
DATE: FOLLOWUP RENAL CONSULTATION LOCATION: The patient is located in room 623, bed 1. REQUESTED BY: Keila Colón DO. REASON FOR FOLLOWUP: End-stage renal disease, for continuation of hemodialysis. SUBJECTIVE: Mr. Lee is a 76-year-old elderly very pleasant [place] male with a history of longstanding hypertension, diabetes, coronary artery disease, hyperlipidemia, end-stage renal disease, on hemodialysis 3 times a week, Friday, Friday, Friday, who was admitted to [facility] about 3 weeks ago with shortness of breath, chest pain. Subsequently, the patient was found to have acute OK and underwent cardiac cath, found to have a multivessel disease requiring CABG, status post CABG and the patient is here in acute rehab for continuation of the physical therapy. The patient is feeling better, not in any acute distress. No chest pain. No palpitation. No fever. No cough. No abdominal pain. No nausea, vomiting, diarrhea. The patient underwent hemodialysis yesterday, had ultrafiltration about 2.5 L. Resting comfortably. 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 VITAL SIGNS: His vital signs this morning as follows; blood pressure 115/60, pulse 70, respirations 19, temperature 97.5, saturation 96%, height 5 feet 6 inches, weight is 165 pounds. BMI of 26.6. HEENT: Pupils are normal and reactive to light and accommodation. Conjunctivae pink. Sclerae anicteric. Tongue is moist. Trachea is midline. LUNGS: Symmetric on both sides. Bilateral breath sounds present. Clear on auscultation. CARDIOVASCULAR SYSTEM: [place] at the fifth intercostal space, midclavicular line. S1 and S2 audible. No murmur. No gallop. ABDOMEN: Normal in appearance, soft, tympanic. No guarding. No rigidity. No hepatosplenomegaly. CENTRAL NERVOUS SYSTEM: The patient is alert, awake, oriented x3. Nonfocal neuro examination. Cranial nerves II through XII grossly intact. Sensory and motor system is within normal limits. EXTREMITIES: No cyanosis. No clubbing. No edema. LABORATORY DATA: No other labs are available. Accu-Cheks this morning 149 and 320. MEDICATIONS: His current medications include as follows; Colace 100 mg p.o. b.i.d., lactulose 20 g p.o. daily, subcu heparin 500 units q. 8 hours and lispro 6 units before meals subcu, Levemir 22 units subcu at bedtime and Lipitor 40 mg at bedtime, Lopressor 25 mg q. 12 hours, ibuprofen 600 p.o. q. 6 p.r.n., Norvasc 10 mg daily, PhosLo 667 mg p.o. b.i.d., Plavix 75 mg p.o. daily, Procrit 10,000 units 3 times a week and Protonix 40 mg daily, Remeron 7.5 mg p.o. at bedtime, multivitamin 1 tablet daily and Tylenol. 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 Now, in acute rehab for the continuation of physical therapy. 1. End-stage renal disease. Continue hemodialysis 3 times a week, Friday, Friday, Friday. 2. Hypertension. Blood pressure is stable. 3. Diabetes. Sugars are fluctuating. 4. Status post coronary artery bypass graft for acute myocardial infarction with multivessel disease. Continue physical therapy as per the rehab and restrict fluids to 1 L per day. Increase PhosLo to 667 mg p.o. t.i.d. 5. Status post hemodialysis on 05/16/2017. Had ultrafiltration about 2.5 L. Stable treatment. We will follow with you. Thank you for allowing me to participate in your patient's care. Tasha Rodrigues MD
--- NOTE | 2017-05-17 17:20 | CP.PCM.PN ---
Subjective - Date & Time of Evaluation Date of Evaluation: 05/17/17 Time of Evaluation: 17:19 - Subjective Subjective: Patient seen in room sternal incision stable no ill side effects from oxandrin staff is noting increase in appetite continue current care will be going to [facility] for [facility] Objective - Vital Signs/Intake and Output Vital Signs (last 24 hours): Temp Pulse Resp BP Pulse Ox 97.5 F L 70 19 115/60 96 05/17/17 08:45 05/17/17 08:50 05/17/17 08:45 05/17/17 08:50 05/17/17 08:45 - Medications Medications: Current Medications Acetaminophen (Tylenol 325mg Tab) 650 mg PO Q6 PRN PRN Reason: Headache Last Admin: 05/14/17 14:29 Dose: 650 mg Acetaminophen (Tylenol 325mg Tab) 650 mg PO Q6 PRN PRN Reason: Other Last Admin: 05/16/17 21:41 Dose: 650 mg Amlodipine Besylate (Norvasc) 10 mg PO DAILY [facility] Last Admin: 05/17/17 08:47 Dose: Not Given Atorvastatin Calcium (Lipitor) 40 mg PO HS [facility] Last Admin: 05/16/17 21:48 Dose: 40 mg Calcium Acetate (Phoslo) 667 mg PO BID [facility] Last Admin: 05/17/17 08:42 Dose: 667 mg Clopidogrel Bisulfate (Plavix) 75 mg PO DAILY [facility] Last Admin: 05/17/17 08:42 Dose: 75 mg Docusate Sodium (Colace) 100 mg PO BID [facility] Last Admin: 05/17/17 08:44 Dose: 100 mg Epoetin Prasanth (Procrit) 10,000 unit IV MWF@1600 [facility] Last Admin: 05/16/17 17:37 Dose: 10,000 unit Heparin Sodium (Porcine) (Heparin) 5,000 units SC Q8@0600,1400,2200 [facility] PRN Reason: Protocol Last Admin: 05/17/17 13:35 Dose: 5,000 units Ibuprofen (Motrin Tab) 600 mg PO Q6 PRN PRN Reason: Pain 1-10. Insulin Detemir (Levemir) 22 units SC [facility] Last Admin: 05/16/17 22:03 Dose: 22 units Insulin Human Lispro (Humalog) 0 units SC [facility] PRN Reason: Protocol Last Admin: 05/17/17 12:04 Dose: 2 units Insulin Human Lispro (Humalog) 6 units SC AC [facility] Last Admin: 05/17/17 12:05 Dose: 6 units Lactulose (Enulose) 20 gm PO DAILY PRN PRN Reason: Constipation Last Admin: 05/04/17 17:07 Dose: 20 gm Metoprolol Tartrate (Lopressor) 25 mg PO Q12 [facility] Last Admin: 05/17/17 08:50 Dose: Not Given Mirtazapine (Remeron) 7.5 mg PO HS [facility] Last Admin: 05/16/17 22:01 Dose: 7.5 mg Multivitamins/Minerals (Therapeutic-M Tab) 1 tab PO DAILY [facility] Last Admin: 05/17/17 08:42 Dose: 1 tab Oxandrolone (Oxandrin) 5 mg PO BID [facility] Last Admin: 05/17/17 08:47 Dose: 5 mg Pantoprazole Sodium (Protonix Ec Tab) 40 mg PO DAILY [facility] Last Admin: 05/17/17 08:43 Dose: 40 mg - Labs Labs: 05/15/17 07:14 05/15/17 07:14
[2017-05-17] MEDS: Insulin Detemir 100 Units/ml Inj SC SCH (21:25)
[2017-05-18] MEDS: Insulin Lispro (humaLOG) 100 Units/ml Inj SC SCH ×7 (06:38→21:10)
[2017-05-18] MEDS: Multivitamin With Minerals Tab PO SCH (08:18)
[2017-05-18] MEDS: Pantoprazole 40 mg EC Tab PO SCH (08:18)
--- NOTE | 2017-05-18 11:34 | CP.PCM.CON ---
History of Present Illness - History of Present Illness History of Present Illness: follow up consult pt recently had a cardiac surgery, presented with depressed mood and insomnia on evaluation pt was placed on remeron 7.5mg qhs on revaluation pt reported improved sleep, with positive impact on mood, denied side effects of remeron denied any current suicidal or homicidal ideations Past Patient History - Past Medical History & Family History Past Medical History?: Yes - Past Social History Smoking Status: Never Smoked Chewing Tobacco Use: No Cigar Use: No Alcohol: None Drugs: Denies Home Situation {Lives}: With Family - CARDIAC Hx Cardiac Disorders: Yes Hx Atrial Fibrillation: Yes Hx Hypertension: Yes Hx Pacemaker: Yes - PULMONARY Hx Respiratory Disorders: No - NEUROLOGICAL Hx Neurological Disorder: No - HEENT Hx HEENT Problems: No - RENAL Hx Chronic Kidney Disease: Yes Hx Dialysis: Yes Date of Last Dialysis Treatment: 04/30/17 ([facility] - ENDOCRINE/METABOLIC Hx Diabetes Mellitus Type 1: Yes (??) - HEMATOLOGICAL/ONCOLOGICAL Hx Anemia: Yes - INTEGUMENTARY Hx Dermatological Problems: No - MUSCULOSKELETAL/RHEUMATOLOGICAL Hx Musculoskeletal Disorders: No - PSYCHIATRIC Hx Substance Use: No - SURGICAL HISTORY Hx Surgeries: Yes Hx Cardiac Catheterization: Yes Hx Coronary Artery Bypass Graft: Yes Other/Comment: CABG/PPM - ANESTHESIA Hx Anesthesia: Yes Hx Anesthesia Reactions: No Meds Allergies/Adverse Reactions: Allergies Allergy/AdvReac Type Severity Reaction Status Date / Time aspirin Allergy Intermediate .HIVES Verified 05/01/17 20:29 shellfish derived Allergy Intermediate .HIVES Verified 05/01/17 20:29 - Medications Medications: Current Medications Acetaminophen (Tylenol 325mg Tab) 650 mg PO Q6 PRN PRN Reason: Headache Last Admin: 05/14/17 14:29 Dose: 650 mg Acetaminophen (Tylenol 325mg Tab) 650 mg PO Q6 PRN PRN Reason: Other Last Admin: 05/16/17 21:41 Dose: 650 mg Amlodipine Besylate (Norvasc) 10 mg PO DAILY [facility] Last Admin: 05/18/17 08:14 Dose: Not Given Atorvastatin Calcium (Lipitor) 40 mg PO HS [facility] Last Admin: 05/17/17 21:23 Dose: 40 mg Calcium Acetate (Phoslo) 667 mg PO BID [facility] Last Admin: 05/18/17 08:17 Dose: 667 mg Clopidogrel Bisulfate (Plavix) 75 mg PO DAILY [facility] Last Admin: 05/18/17 08:18 Dose: 75 mg Docusate Sodium (Colace) 100 mg PO BID [facility] Last Admin: 05/18/17 08:12 Dose: 100 mg Epoetin Prasanth (Procrit) 10,000 unit IV MWF@1600 [facility] Last Admin: 05/16/17 17:37 Dose: 10,000 unit Heparin Sodium (Porcine) (Heparin) 5,000 units SC Q8@0600,1400,2200 [facility] PRN Reason: Protocol Last Admin: 05/18/17 06:15 Dose: 5,000 units Ibuprofen (Motrin Tab) 600 mg PO Q6 PRN PRN Reason: Pain 1-10. Insulin Detemir (Levemir) 22 units SC HS [facility] Last Admin: 05/17/17 21:25 Dose: 22 units Insulin Human Lispro (Humalog) 0 units SC ACHS [facility] PRN Reason: Protocol Last Admin: 05/18/17 06:38 Dose: Not Given Insulin Human Lispro (Humalog) 6 units SC AC [facility] Last Admin: 05/18/17 08:12 Dose: 6 units Lactulose (Enulose) 20 gm PO DAILY PRN PRN Reason: Constipation Last Admin: 05/04/17 17:07 Dose: 20 gm Metoprolol Tartrate (Lopressor) 25 mg PO Q12 [facility] Last Admin: 05/18/17 08:13 Dose: Not Given Mirtazapine (Remeron) 7.5 mg PO HS [facility] Last Admin: 05/17/17 21:23 Dose: 7.5 mg Multivitamins/Minerals (Therapeutic-M Tab) 1 tab PO DAILY [facility] Last Admin: 05/18/17 08:18 Dose: 1 tab Oxandrolone (Oxandrin) 5 mg PO BID [facility] Last Admin: 05/18/17 08:17 Dose: 5 mg Pantoprazole Sodium (Protonix Ec Tab) 40 mg PO DAILY [facility] Last Admin: 05/18/17 08:18 Dose: 40 mg Physical Exam - Psychiatric Exam Additional comments: pt seen in bed, reported feeling less distressed, appears less depressed, thought form coherent, speech soft , goal directed, denied any current suicidal or homicidal ideations denied perceptual disturbances, alert awake ox3 fair insight and judgment Results - Vital Signs Recent Vital Signs: Last Vital Signs Temp 98.3 F 05/18/17 08:59 Pulse 93 H 05/18/17 08:59 Resp 20 05/18/17 08:59 BP 131/59 L 05/18/17 08:59 Pulse Ox 99 05/18/17 08:59 - Labs Result Diagrams: 05/15/17 07:14 05/15/17 07:14 Labs: Laboratory Results - last 24 hr 05/17/17 05/17/17 05/17/17 12:00 16:10 20:59 POC Glucose (mg/dL) 320 H 213 H 298 H 05/18/17 06:07 POC Glucose (mg/dL) 113 H Assessment & Plan - Assessment and Plan (Free Text) Assessment: major depression Plan: continue with remeron 7.5mg qhs pt at current mental status denied suicidal ideations denied perceptual disturbances at current mental status not danger to self or others pt psychiatricaly cleared for discharge on medical clearance - Date & Time Date: 05/17/17 Time: 11:33
[2017-05-18] MEDS: Insulin Detemir 100 Units/ml Inj SC SCH (21:10)
[2017-05-18 21:15] VITALS: PULSE 70
[2017-05-19] MEDS: Insulin Lispro (humaLOG) 100 Units/ml Inj SC SCH ×6 (06:30→17:00)
[2017-05-19] MEDS: Multivitamin With Minerals Tab PO SCH (08:07)
[2017-05-19] MEDS: Pantoprazole 40 mg EC Tab PO SCH (08:07)
[2017-05-19 09:36] VITALS: BP 128/53; RESP 19; TEMP 96.8; O2SAT 96
[2017-05-19] MEDS: EPOETIN ALFA 10,000 UNIT/ML ML IV SCH ×2 (11:12→16:34)
--- NOTE | 2017-05-19 13:38 | PN ---
DATE: 05/18/2017 ENDOCRINOLOGY FOLLOWUP NOTE LOCATION: In room 623. SUBJECTIVE: This is a 76-year-old male with recent uncontrolled type 2 insulin-requiring diabetes, currently undergoing acute rehabilitation therapy for deconditioning and strengthening exercises following a recent coronary artery bypass graft surgery at the [facility]. His glycemic levels are fluctuating because of the improved oral intake as noted and the glucose values have ranged from 213 to 298 and 113 mg/dL. The latest chemistry showed a BUN of 38, sodium 136, potassium 5.0, chloride 92, CO2 of 36, glucose 164, and creatinine 6.9. ASSESSMENT AND PLAN: So at this time, we will continue the same basal and bolus insulin regimen to allow for dose equilibration and keep him on the Levemir at 22 units subcu at bedtime daily as ordered. We will continue the Humalog given as 6 units subcu t.i.d. before meals as ordered. We will titrate incremental as indicated to optimize metabolic control. We will follow and advise accordingly. Cindy Jacobs MD
--- NOTE | 2017-05-19 13:44 | CP.PCM.DIS ---
Provider - Provider Date of Admission: 05/01/17 20:30 Attending physician: Keila Colón DO Consults: Dr. Ricardo/Dr. Ge- physiatry Dr. Phillips- psychiatry Dr. Rodrigues- nephrology Dr. Holden- podiatry Time Spent in preparation of Discharge (in minutes): 25 Hospital Course - Lab Results Lab Results: Most Recent Lab Values WBC 7.4 K/uL (4.8-10.8) 05/15/17 07:14 RBC 3.97 Mil/uL (4.40-5.90) L 05/15/17 07:14 Hgb 11.9 g/dL (12.0-18.0) L 05/15/17 07:14 Hct 36.8 % (35.0-51.0) 05/15/17 07:14 MCV 92.6 fl (80.0-94.0) 05/15/17 07:14 MCH 30.0 pg (27.0-31.0) 05/15/17 07:14 MCHC 32.4 g/dL (33.0-37.0) L 05/15/17 07:14 RDW 18.6 % (11.5-14.5) H 05/15/17 07:14 Plt Count 246 K/uL (130-400) 05/15/17 07:14 MPV 7.3 fl (7.2-11.7) 05/15/17 07:14 Neut % (Auto) 70.1 % (50.0-75.0) 05/15/17 07:14 Lymph % (Auto) 15.4 % (20.0-40.0) L 05/15/17 07:14 Burnett % (Auto) 13.2 % (0.0-10.0) H 05/15/17 07:14 Eos % (Auto) 0.8 % (0.0-4.0) 05/15/17 07:14 Baso % (Auto) 0.5 % (0.0-2.0) 05/15/17 07:14 Neut # 5.2 K/uL (1.8-7.0) 05/15/17 07:14 Lymph # 1.1 K/uL (1.0-4.3) 05/15/17 07:14 Burnett # 1.0 K/uL (0.0-0.8) H 05/15/17 07:14 Eos # 0.1 K/uL (0.0-0.7) 05/15/17 07:14 Baso # 0.0 K/uL (0.0-0.2) 05/15/17 07:14 Sodium 136 mmol/l (132-148) 05/15/17 07:14 Potassium 5.0 MMOL/L (3.6-5.0) 05/15/17 07:14 Chloride 92 mmol/L (98-107) L 05/15/17 07:14 Carbon Dioxide 36 mmol/L (22-30) H 05/15/17 07:14 Anion Gap 13 (10-20) 05/15/17 07:14 BUN 38 mg/dl (9-20) H 05/15/17 07:14 Creatinine 6.9 mg/dl (0.8-1.5) H 05/15/17 07:14 Est GFR ( Amer) 9 05/15/17 07:14 Est GFR (Non-Af Amer) 8 05/15/17 07:14 POC Glucose (mg/dL) 148 mg/dL (65-110) H 05/19/17 11:29 Random Glucose 164 mg/dL (75-110) H 05/15/17 07:14 Hemoglobin A1c 7.1 % (4.2-6.5) H 05/03/17 05:30 Calcium 9.7 mg/dL (8.4-10.2) 05/15/17 07:14 Phosphorus 5.1 mg/dl (2.5-4.5) H 05/15/17 07:14 Total Bilirubin 0.8 mg/dl (0.2-1.3) 05/15/17 07:14 AST 37 U/L (17-59) 05/15/17 07:14 ALT 22 U/L (21-72) 05/15/17 07:14 Alkaline Phosphatase 78 U/L (38-126) 05/15/17 07:14 Troponin I 0.2060 ng/mL (0.00-0.120) H* 05/12/17 12:25 Total Protein 7.7 G/DL (6.3-8.2) 05/15/17 07:14 Albumin 3.9 g/dL (3.5-5.0) 05/15/17 07:14 Globulin 3.9 gm/dL (2.2-3.9) 05/15/17 07:14 Albumin/Globulin Ratio 1.0 (1.0-2.1) 05/15/17 07:14 Triglycerides 121 mg/DL (0-149) 05/03/17 05:30 Cholesterol 91 mg/dL (0-199) 05/03/17 05:30 LDL Cholesterol Direct < 30 mg/dL (0-129) 05/03/17 05:30 HDL Cholesterol 32 MG/DL (30-70) 05/03/17 05:30 TSH 3rd Generation 2.01 mIU/ML (0.46-4.68) 05/03/17 05:30 PTH Intact Whole Molec 223 pg/mL (14-64) H 05/15/17 07:14 Hep Bs Antigen Negative (NEGATIVE) 05/02/17 06:50 Hep Bs Antibody Positive (NEGATIVE) 05/02/17 06:50 Hepatitis C Antibody Negative (NEGATIVE) 05/02/17 06:50 - Hospital Course Hospital Course: 76 years transferred to [place] [facility] [place] .He has PMH significant for ESRD on HD MWF, DM2, CAD s/p stents in the past. He underwent an uncomplicated course in acute rehabilitation and was able to regain some strength. During his stay he was seen by PT/OT and cooperated. He was evaluated for depression by both psychology and psychiatry and was started on Mirtazapine. He is for discharged to [facility] today for further rehabilitation. 1. NSTEMI s/p CABG- resolved continue Cardiac Rehab [employer] consult with Dr. Claudio appreciated Cont Lipitor,Plavix, Metoprolol follow up with cardiothoracic surgeon Dr. Peters 2. ESRD on HD MWF Consult Dr Rodrigues nephrology continue HD as scheduled 3. Anemia of chronic Kidney disease Epogen at dialysis 4. Diabetes mellitus Dr Jacobs endocrinology on consult- appreciated Levemir 18 units HSW and Aspart 4 units SQ AC Aspart sliding scale 5. A Fib/ A flutter/SSS rate controlled Not to restart therapeutic anticoagulation yet as per Cardio thoracic Surgery 6. HTN on norvasc and Metoprolol controlled 7. LLL infiltrate- resolved Likely cause of SOB along with pleural effusion Finished course of Levaquin 7.Constipation- resolved resolved with colace and lactulose 8. GI PPx Pantoprazole 9.DVT PPx heparin SQH 10. Depression - Seen by Dr. Phillips, psychiatry - Started on Mirtazapine 7.5 q HS - Psychiatry cleared for discharge Discharge Exam - Additional Findings Additional findings: Physical exam: Constitutional- cooperative, awake, alert. Head- NCAT, PERRL Eye- PERRL, normal accommodation ENT- normal exam, MMM. Neck- normal inspection, supple, no JVD Respiratory- mild rales in left base, no wheezes or rhonchi Cardiovascular- RRR, +S1, +S2 no MRG GI/Abdominal- normal bowel sounds, soft, no mass, no hsm Skin- warm, dry. AV fistula in L arm Extremities Exam- normal capillary refill, normal inspection Neurological Exam- alert. Stable gait. Psych- depressed mood. Flat affect. Discharge Plan - Follow Up Plan Condition: GOOD Disposition: REHAB FACILITY/REHAB UNIT Instructions: Heart Failure (DC), Coronary Artery Disease (DC), Atrial Fibrillation (DC), Diabetes Mellitus Type 2 in Adults (DC), Chronic Hypertension (DC), Anemia (DC), End Stage Kidney Disease (DC), Coronary Artery Bypass Graft (DC)
--- NOTE | 2017-05-19 14:34 | PN ---
DATE: 05/19/2017 ENDOCRINOLOGY FOLLOWUP NOTE LOCATION: In room 623. SUBJECTIVE: This is a 76-year-old male with recent uncontrolled type 2 insulin-requiring diabetes now being followed closely for metabolic management. He has ongoing physical and occupational therapy here in the acute rehab center following a recent coronary artery bypass graft surgery at the [facility]. His glycemic levels are fluctuating because of the variability of his oral intake and the glucose levels overnight showed glucose levels of 228 and 223 mg/dL. His latest chemistry showed a BUN of 38, sodium 136, potassium 5.0, chloride 92, CO2 of 36, glucose 164 and creatinine 6.9. ASSESSMENT AND PLAN: So at this time, we will continue once again the same basal and bolus insulin regimen as noted. Actually early this morning, he developed low normal glycemic levels with glucose values in the low 70s as noted, with no overt neuroglycopenic hyperadrenergic manifestations of the same. Because of the variability of his oral intake, we will continue the same basal and bolus insulin regimen, and observe his glycemic fluctuations all day today and determine the need to readjust his insulin regimen accordingly. For now, we will continue the Humalog given as 6 units subcu t.i.d. before meals as ordered. We will continue also the Levemir given as 22 units subcu at bedtime daily as ordered. We will titrate incrementally as indicated to optimize metabolic control. We will follow. Cindy Jacobs MD
--- NOTE | 2017-05-20 09:35 | PN ---
DATE: LOCATION: Room 623. SUBJECTIVE: This is a 74-year-old male with recent uncontrolled type 2 insulin-requiring diabetes, now being followed closely for metabolic management. His oral intake is much improved at this time as per the nursing staff with supervening hyperglycemic accelerations as noted episodically thereof. His glucose levels have raised from 167 to 242 and 247 mg/dL. It was 181 at lunchtime today as noted. So at this time, we will modify his basal and bolus insulin regimen and increase the Humalog to 6 units subcu t.i.d. before meals to start today as noted. We will also increase the basal insulin with Levemir to be given as 22 units subcu at bedtime daily as needed. We will titrate incrementally as indicated to optimize metabolic control. We will obtain serial chemistries and supplement accordingly as needed. We will follow. Cindy Jacobs MD
== END 2017-05-19 17:45 | DRG 949 ==
PROVIDERS: ADMIT Student in an Organized Health Care Education/Training Program; ATTEND Student in an Organized Health Care Education/Training Program
PROC: F07M6FZ Therapeutic Exercise Treatment of Musculoskeletal System - Whole Body using Assistive, Adaptive, Supportive or Protective Equipment (ICD-10-PCS; 2017-05-02)
PROC: F08Z4FZ Home Management Treatment using Assistive, Adaptive, Supportive or Protective Equipment (ICD-10-PCS; 2017-05-02)
PROC: 0HBRXZZ Excision of Toe Nail, External Approach (ICD-10-PCS; 2017-05-02)
PROC: 5A1D70Z Performance of Urinary Filtration, Intermittent, Less than 6 Hours Per Day (ICD-10-PCS; principal; 2017-05-14)
PROC: 5A1D70Z Performance of Urinary Filtration, Intermittent, Less than 6 Hours Per Day (ICD-10-PCS; 2017-05-16)
PROC: 5A1D70Z Performance of Urinary Filtration, Intermittent, Less than 6 Hours Per Day (ICD-10-PCS; 2017-05-19)
DX: Z48.812 Encounter for surgical aftercare following surgery on the circulatory system (principal); N18.6 End stage renal disease; I13.2 Hypertensive heart and chronic kidney disease with heart failure and with stage 5 chronic kidney disease, or end stage renal disease; E11.21 Type 2 diabetes mellitus with diabetic nephropathy; E11.22 Type 2 diabetes mellitus with diabetic chronic kidney disease; I95.9 Hypotension, unspecified; I48.2 Chronic atrial fibrillation; I48.92 Unspecified atrial flutter; E11.42 Type 2 diabetes mellitus with diabetic polyneuropathy; E11.51 Type 2 diabetes mellitus with diabetic peripheral angiopathy without gangrene; E11.319 Type 2 diabetes mellitus with unspecified diabetic retinopathy without macular edema; N25.81 Secondary hyperparathyroidism of renal origin; I27.20 Pulmonary hypertension, unspecified; D63.1 Anemia in chronic kidney disease; Z79.4 Long term (current) use of insulin; Z79.84 Long term (current) use of oral hypoglycemic drugs; E11.59 Type 2 diabetes mellitus with other circulatory complications; E11.65 Type 2 diabetes mellitus with hyperglycemia; Z99.2 Dependence on renal dialysis; E78.5 Hyperlipidemia, unspecified; F32.9 Major depressive disorder, single episode, unspecified; G47.00 Insomnia, unspecified; I25.10 Atherosclerotic heart disease of native coronary artery without angina pectoris; I25.2 Old myocardial infarction; I50.9 Heart failure, unspecified; K59.00 Constipation, unspecified; Z79.899 Other long term (current) drug therapy; Z87.891 Personal history of nicotine dependence; Z91.19 Patient's noncompliance with other medical treatment and regimen; Z95.0 Presence of cardiac pacemaker; Z95.1 Presence of aortocoronary bypass graft; Z95.5 Presence of coronary angioplasty implant and graft; D64.9 Anemia, unspecified; R42 Dizziness and giddiness; R53.1 Weakness; L60.8 Other nail disorders